=== PATIENT | male | born 1945 | race Caucasian/White ===

== ENCOUNTER 2020-10-20 20:48 | Observation (INO) | payer MEDICARE, BC, OTHER ==
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
[2020-10-20 22:36] LABS: Basophils # (A) 0.1 k/uL (0-0.2); Basophils % (A) 1 %; Eosinophils # (A) 1.1 k/uL (0-0.7); Eosinophils % (A) 11 %; HCT 38.1 % (39.0-53.0); HGB 12.9 gm/dL (13.0-17.5); Lymphocytes # (A) 2.6 k/uL (1.0-4.8); Lymphocytes % (A) 25 %; MCH 29.6 pg (25.0-35.0); MCV 87.1 fL (80.0-100.0); Mean Platelet Volume 7.9; Monocytes # (A) 0.5 k/uL (0-1.0); Monocytes % (A) 4 %; Neutrophils % (A) 57 %; Platelet Count 228 k/uL (150-450); RBC 4.37 m/uL (4.30-5.90); RDW 13.5 % (11.5-15.5); WBC 10.4 k/uL (3.8-10.6)
[2020-10-20 22:48] LABS: African American GFR (CKD) >90 (>60 ml/min/1.73 sqM); Alcohol <10 mg/dL; Anion Gap 10 mmol/L; Blood Urea Nitrogen 18 mg/dL (9-20); Calcium 9.8 mg/dL (8.4-10.2); Carbon Dioxide 27 mmol/L (22-30); Chloride 102 mmol/L (98-107); Glucose 147 mg/dL (74-99); Non-African American GFR(CKD) 83 (>60 ml/min/1.73 sqM); Sodium 139 mmol/L (137-145)
[2020-10-20 22:59] LABS: Appearance,Urine Turbid (Clear); Bacteria,Urine Many /hpf; Bilirubin,Urine Negative (Negative); Blood,Urine Moderate (Negative); Color,Urine Yellow; Glucose,Urine (UA) Negative (Negative); Granular Casts,Urine 165 /lpf (0); Hyaline Casts,Urine 37 /lpf (0-2); Ketones,Urine Negative (Negative); Leukocyte Esterase,Urine Large (Negative); Mucus,Urine Few /hpf; Nitrite,Urine Negative (Negative); Protein,Urine 2+ (Negative); RBC,Urine 133 /hpf (0-5); Specific Gravity,Urine 1.022 (1.001-1.035); Squamous Epithelial Cell,Urine 3 /hpf (0-4); Triple Phosphate Crystal,Urine Occasional /hpf; Urobilinogen,Urine <2.0 mg/dL (<2.0); WBC,Urine >182 /hpf (0-5)
[2020-10-20 23:01] LABS: Amphetamine Screen,Urine Not Detected (NotDetected); Barbiturate Screen,Urine Not Detected (NotDetected); Benzodiazepines Screen,Urine Detected (NotDetected); Cocaine Screen,Urine Not Detected (NotDetected); Methadone Screen, Urine Not Detected (NotDetected); Opiate Screen,Urine Not Detected (NotDetected); Oxycodone Screen, Urine Not Detected (NotDetected); Phencyclidine Screen,Urine Not Detected (NotDetected); Tricyclic Antidepressant,Urine Not Detected (NotDetected); Urn Cannabinoid Scrn Not Detected (NotDetected)
[2020-10-20] MEDS ORDERED: LORazepam 2 MG/ML INJ IV STA (23:49)
[2020-10-21] MEDS ORDERED: LORazepam 2 MG/ML INJ IV PRN (00:10)
[2020-10-21] MEDS ORDERED: NALOXONE 0.4 MG/ML 1 ML VIAL IV PRN (00:10)
[2020-10-21] MEDS ORDERED: LOPERAMIDE 2 MG CAP PO PRN (00:13)
[2020-10-21] MEDS ORDERED: MAG HYDROX/AL HYDROX/SIMETH 30 ML CUP PO PRN (00:13)
[2020-10-21] MEDS ORDERED: traMADol 50 MG TAB PO PRN (00:13)
[2020-10-21] MEDS ORDERED: QUEtiapine 50 MG TAB PO STA (00:53)
[2020-10-21] MEDS ORDERED: traZODone HCL 50 MG TAB PO SCH ×2 (00:55→21:00)
[2020-10-21] MEDS ORDERED: cefTRIAXone IN SWFI 1,000 MG/10 ML SYRINGE IVP STA (02:11)
[2020-10-21] MEDS: risperiDONE ODT 1 MG TAB PO STA ×2 (02:20→02:35)
[2020-10-21] MEDS ORDERED: ZIPRASIDONE 20 MG VIAL IM STA (02:30)
[2020-10-21] MEDS ORDERED: ACETAMINOPHEN TAB 500 MG TAB PO PRN (07:15)
[2020-10-21 07:20] LABS: Glucose,Whole Blood 147 mg/dL (75-99)
[2020-10-21] MEDS: INSULIN ASPART (NovoLOG) 100 UNIT/ML VIAL SQ SCH ×4 (08:38→21:15)
[2020-10-21] MEDS: INSULIN DETEMIR (LEVEMIR) 100 UNIT/ML SYR SQ SCH (08:38)
[2020-10-21] MEDS ORDERED: metFORMIN 500 MG TAB PO SCH (09:00)
[2020-10-21] MEDS ORDERED: PARoxetine 20 MG TAB PO SCH (09:00)
[2020-10-21] MEDS ORDERED: QUEtiapine 25 MG TAB PO PRN (10:19)
[2020-10-21] MEDS ORDERED: HALOPERIDOL LACTATE 5 MG/ML 1 ML VIAL IVP PRN (10:20)
--- NOTE | 2020-10-21 10:58 | P.HPIM ---
History of Present Illness Patient is on 75-year-old male came in because of agitation unsure whether patient had history of dementia. Patient appears that he lives in a long-term care facility. Unable to get any kind of history from the patient has patient received Geodon and the arousable but falls back to sleep pretty quickly. In underwent workup in ER patient doesn't have any fever doesn't have any leukocytosis but the patient has urine that is significantly abnormal. I'm unable to get any kind of history from the patient. Patient the is on few medications that can cause confusion at home including tramadol, trazodone, Xanax all of which are being held at this time. REVIEW OF SYSTEMS: Unable to obtain due to his clinical condition PHYSICAL EXAMINATION: GENERAL: Sleeping arousable, not in any acute distress. Well developed, well nou rished. HEENT: Pupils are round and equally reacting to light. EOMI. No scleral icterus. No conjunctival pallor. Normocephalic, atraumatic. No pharyngeal erythema. No thyromegaly. CARDIOVASCULAR: S1 and S2 present. No murmurs, rubs, or gallops. PULMONARY: Unable to assess clearly as patient doesn't follow commands ABDOMEN: Soft, nontender, nondistended, normoactive bowel sounds. No palpable org anomegaly. MUSCULOSKELETAL: No joint swelling or deformity. EXTREMITIES: No cyanosis, clubbing, or pedal edema. NEUROLOGICAL: Unable to assess except those mentioned above SKIN: No rashes. Assessment and plan -Agitation: Can be delirium and toxic encephalopathy from urinary tract infection which I cannot completely rule out awaiting urine cultures patient will be continued on Rocephin 2 g. Patient will be started on Haldol as needed basis and Seroquel at nighttime for agitation will discontinue all benzodiazepines, trazodone and tramadol. -CVA/TIA in the past -History of dementia -Hyperlipidemia -Type 2 diabetes mellitus -Hypertension -Benign prostatic hypertrophy For above-mentioned chronic medical problems patient will be resumed on appropriate home medications. DVT prophylaxis: Lovenox Past Medical History Past Medical History: CVA/TIA, Dementia, Diabetes Mellitus, Hyperlipidemia, Hypertension, Prostate Disorder Additional Past Medical History / Comment(s): Benign prostatcc hyperplasia with lower urinary tract symptoms. Aphasia (6 word vocabulary), hemiplegia/hemiparesis R dominant side. Anemia. Insomnia History of Any Multi-Drug Resistant Organisms: None Reported Additional Past Surgical History / Comment(s): unknown Past Anesthesia/Blood Transfusion Reactions: No Reported Reaction Smoking Status: Unknown if ever smoked Medications and Allergies Home Medications Medication Instructions Recorded Confirmed Type ALPRAZolam [Xanax] 0.25 mg PO DAILY 10/20/20 10/20/20 History Acetaminophen [Tylenol Extra 500 mg PO Q6H 10/20/20 10/20/20 History Strength] Atorvastatin Calcium [Lipitor] 20 mg PO HS 10/20/20 10/20/20 History Insulin Detemir (Levemir) [Levemir] 48 unit SQ DAILY 10/20/20 10/20/20 History Lisinopril [Zestril] 10 mg PO HS 10/20/20 10/20/20 History Loperamide [Imodium] 2 mg PO DAILY PRN 10/20/20 10/20/20 History Mag Hydrox/Aluminum Hyd/Simeth 15 ml PO Q6H PRN 10/20/20 10/20/20 History [Mylanta Maximum Strength Liq] Melatonin 3 mg PO HS 10/20/20 10/20/20 History PARoxetine HCL [Paxil] 20 mg PO DAILY 10/20/20 10/20/20 History metFORMIN HCL [Glucophage] 1,000 mg PO BID 10/20/20 10/20/20 History traMADol HCl [Ultram] 50 mg PO BID PRN 10/20/20 10/20/20 History traMADol HCl [Ultram] 50 mg PO HS 10/20/20 10/20/20 History traZODone HCL [Desyrel] 50 mg PO HS 10/20/20 10/20/20 History Allergies Allergy/AdvReac Type Severity Reaction Status Date / Time latex Allergy Unknown Verified 10/20/20 21:22 Physical Exam Vitals: Vital Signs Temp Pulse Pulse Resp BP BP Pulse Ox 10/21/20 07:00 102 H 18 177/99 98 10/21/20 02:57 97.7 F 87 14 119/65 97 10/20/20 21:00 99.1 F 79 18 133/72 98 Intake and Output 10/20/20 10/21/20 10/21/20 22:59 06:59 14:59 Output Total 500 Balance -500 Output: Urine 500 Other: Voiding Method Indwelling Catheter Weight 80.331 kg 80.331 kg Results CBC & Chem 7: 10/20/20 22:06 10/20/20 22:06 Labs: Abnormal Lab Results - Last 24 Hours (Table) 10/20/20 10/20/20 10/20/20 Range/Units 22:06 22:06 22:06 Hgb 12.9 L (13.0-17.5) gm/dL Hct 38.1 L (39.0-53.0) % Eosinophils # 1.1 H (0-0.7) k/uL Glucose 147 H (74-99) mg/dL POC Glucose (mg/dL) (75-99) mg/dL Urine Protein 2+ H (Negative) Urine Blood Moderate H (Negative) Ur Leukocyte Esterase Large H (Negative) Urine RBC 133 H (0-5) /hpf Urine WBC >182 H (0-5) /hpf Triple Phos Crystals Occasional H (None) /hpf Urine Bacteria Many H (None) /hpf Hyaline Casts 37 H (0-2) /lpf Urine Mucus Few H (None) /hpf U Benzodiazepines Scrn (NotDetected) 10/20/20 10/21/20 Range/Units 22:06 07:18 Hgb (13.0-17.5) gm/dL Hct (39.0-53.0) % Eosinophils # (0-0.7) k/uL Glucose (74-99) mg/dL POC Glucose (mg/dL) 147 H (75-99) mg/dL Urine Protein (Negative) Urine Blood (Negative) Ur Leukocyte Esterase (Negative) Urine RBC (0-5) /hpf Urine WBC (0-5) /hpf Triple Phos Crystals (None) /hpf Urine Bacteria (None) /hpf Hyaline Casts (0-2) /lpf Urine Mucus (None) /hpf U Benzodiazepines Scrn Detected H (NotDetected) Microbiology - Last 24 Hours (Table) 10/20/20 22:06 Urine Culture - Preliminary Urine,Voided Thrombosis Risk Factor Assmnt - Choose All That Apply Any of the Below Risk Factors Present?: No Other Risk Factors: Yes Each Risk Factor Represents 3 Points: Age 75 years or older Other congenital or acquired thrombophilia - If yes, enter type in comment: No Thrombosis Risk Factor Assessment Total Risk Factor Score: 3 Thrombosis Risk Factor Assessment Level: Moderate Risk
[2020-10-21] MEDS ORDERED: HALOPERIDOL LACTATE 5 MG/ML 1 ML VIAL IM PRN ×2 (11:34→11:36)
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
[2020-10-21 12:22] LABS: Glucose,Whole Blood 127 mg/dL (75-99)
[2020-10-21] MEDS: DIVALPROEX 250 MG TABLET.DR PO SCH ×2 (12:23→21:09)
[2020-10-21 13:19] VITALS: BMI 24.7
[2020-10-21 17:10] LABS: Glucose,Whole Blood 150 mg/dL (75-99)
[2020-10-21 20:13] LABS: Glucose,Whole Blood 172 mg/dL (75-99)
[2020-10-21] MEDS ORDERED: lisinopriL 10 MG TAB PO SCH (21:00)
[2020-10-21] MEDS ORDERED: QUEtiapine 25 MG TAB PO SCH (21:00)
[2020-10-21] MEDS ORDERED: MELATONIN 3 MG TABLET PO SCH (21:00)
[2020-10-21] MEDS ORDERED: ATORVASTATIN 20 MG TAB PO SCH (21:00)
[2020-10-22 07:23] LABS: Glucose,Whole Blood 146 mg/dL (75-99)
[2020-10-22] MEDS: DIVALPROEX 250 MG TABLET.DR PO SCH (07:45)
[2020-10-22] MEDS: INSULIN ASPART (NovoLOG) 100 UNIT/ML VIAL SQ SCH ×2 (07:45→11:55)
[2020-10-22] MEDS: INSULIN DETEMIR (LEVEMIR) 100 UNIT/ML SYR SQ SCH (07:46)
[2020-10-22 08:04] VITALS: RESP 16
[2020-10-22] MEDS ORDERED: ENOXAPARIN 40 MG/0.4 ML SYRINGE SQ SCH (09:00)
[2020-10-22 11:33] LABS: Glucose,Whole Blood 178 mg/dL (75-99)
--- NOTE | 2020-10-22 13:46 | P.PN ---
Progress Note - Text Progress Note Date: 10/22/20 Interval History: Patient was seen today for psychiatric follow-up regarding his delirium. Zofia ent's nurse claims that patient has been doing very well and has been calm and cooperative today. Patient did not receive any prn medications pvernight and apprently slept fairly. Patient was sleeping when senior medical writer entered the room and was awoken by senior medical writer. He was fairly calm during the interview and did not have any irritability. He did not offer any complaints. She did not know his location or today's date however does not his first name. He was able to follow commands which were simple given by senior medical writer. He denied any depression and states that he is doing "fine". At this time patient denies any suicidal or homical ideations, intent or plan. Patient denies any auditory, visual hallucinations and denies any paranoia or delusions. Patient denies any side effects from the medications and has been compliant with meds. Mental Status Exam: General Appearance: Patient appears to be laying in bed, alert and directable. Patient appears to have fair hygiene and grooming wearing hospital gown Behavior: Patient is calmly lying in bed without any agitated behavior. Speech: [place], fluent. Mood/Affect: She claims that his mood is fine and denies any depression, affect is congruent. Suicidality/Homicidality: Denies Perceptions: Denies any auditory or visual hallucinations. Though content/process: [place], poverty of content. Logical. Not endorsing any delusions. Memory and concentration: He is alert and oriented to name only, however does not know today's date or location. Improved attention span. Following some commands. Judgment and insight: chronically poor, improved Assessment Delirium likely secondary to urinary tract infection, resolved History of dementia with behavioral disturbance Plan: -At this time patient DOES NOT meet criteria for inpatient psychiatric admission. -Delirium precautions recommended with patient including - avoiding use of narcotics and CENTER DIRECTOR LEAD TEACHER sedatives, limit anticholinergic medications when possible, frequent re-orientation, minimize use of restraints, open window shades during the day and close them at night -Would recommend the following medication changes/additions: Please avoid any benzodiazepines or anticholinergic medications as this will further increase patient's confusion/delirium. Seroquel 25 mg daily at bedtime for insomnia/mood stabilization. Depakote 250 mg twice a day for aggression/agitation. Haldol when necessary for agitation. -continue with treatment of underlying UTI/infection. -Communicated plan to patient's nurse. PAtient will be going back to [facility] upon discharge -At this time psychiatry will sign off. -Please contact with any questions.
--- NOTE | 2020-10-22 14:40 | P.DS ---
Providers Date of admission: 10/21/20 00:13 Expected date of discharge: 10/22/20 Attending physician: Annaebl Johnson Consults: 10/21/20 00:11 Consult Physician Routine Consulting Provider: Ismael Alvarez Consult Reason/Comments: Intermittent combativeness Do you want consulting provider notified?: Yes Primary care physician: Antione Johnson Hospital Course: Final diagnosis -Agitation: Can be delirium and toxic encephalopathy from acute urinary tract infection, present on admission -CVA/TIA in the past -History of dementia -Hyperlipidemia -Type 2 diabetes mellitus -Hypertension -Benign prostatic hypertrophy -DVT prophylaxis -Full code Discharge disposition Patient is being discharged in a stable condition with guarded prognosis to [facility] as he is a resident there. Patient will follow-up with Dr. Johnson in the outpatient setting upon discharge. Patient is to continue with Ceftin 500 mg twice daily for the next 5 days and then may discontinue. Total time taken is greater than 35 minutes. Hospital Course Patient is on 75-year-old male came in because of agitation unsure whether patient had history of dementia. Patient appears that he lives in a long-term care facility. Unable to get any kind of history from the patient has patient received Geodon and the arousable but falls back to sleep pretty quickly. Patient underwent workup in ER patient doesn't have any fever doesn't have any leukocytosis but the patient has urine that is significantly abnormal. I'm unable to get any kind of history from the patient. Patient the is on few med ications that can cause confusion at home including tramadol, trazodone, Xanax all of which are being discontinued at this time. 10/22/2020 Patient is seen in follow-up and much more calm and cooperative. Patient continues to be somewhat confused although more awake today. Patient being treated for acute urinary tract infection and will continue with oral Ceftin 500 mg twice daily for the next 5 days and then may discontinue. Patient was also seen and evaluated by psychiatry and patient will continue on Seroquel 25 mg at night along with Depakote 250 mg twice daily and recommend also to avoid INTERNAL MEDICINE DOCTOR and narcotic agents as patient becomes more agitated and confused. Currently no reports of chest pain, shortness of breath, or palpitations. Patient is afebrile. No reports of nausea or vomiting and patient is tolerating diet. Patient will be going to [facility] today. On exam vital signs are stable. Cardio S1, S2 are muffled. Respiratory system shows diminished breath sounds at the bases with no wheezing or rhonchi noted. Abdomen is soft and nontender. Nervous system shows diffuse weakness. Please refer to medication reconciliation sheet for a list of medications. Patient Condition at Discharge: Stable Plan - Discharge Summary Discharge Rx Participant: No New Discharge Prescriptions: New Divalproex [Depakote] 250 mg PO BID tablet. QUEtiapine [SEROquel] 25 mg PO HS tab Cefuroxime Axetil [Ceftin] 500 mg PO BID 5 Days #10 tab Continue Loperamide [Imodium] 2 mg PO DAILY PRN PRN Reason: Diarrhea Atorvastatin Calcium [Lipitor] 20 mg PO HS Acetaminophen [Tylenol Extra Strength] 500 mg PO Q6H Mag Hydrox/Aluminum Hyd/Simeth [Mylanta Maximum Strength Liq] 15 ml PO Q6H PRN PRN Reason: Gi Upset metFORMIN HCL [Glucophage] 1,000 mg PO BID Lisinopril [Zestril] 10 mg PO HS Insulin Detemir (Levemir) [Levemir] 48 unit SQ DAILY Discontinued traMADol HCl [Ultram] 50 mg PO HS traZODone HCL [Desyrel] 50 mg PO HS PARoxetine HCL [Paxil] 20 mg PO DAILY Melatonin 3 mg PO HS traMADol HCl [Ultram] 50 mg PO BID PRN PRN Reason: Pain ALPRAZolam [Xanax] 0.25 mg PO DAILY Discharge Medication List Acetaminophen [Tylenol Extra Strength] 500 mg PO Q6H 10/20/20 [History] Atorvastatin Calcium [Lipitor] 20 mg PO HS 10/20/20 [History] Insulin Detemir (Levemir) [Levemir] 48 unit SQ DAILY 10/20/20 [History] Lisinopril [Zestril] 10 mg PO HS 10/20/20 [History] Loperamide [Imodium] 2 mg PO DAILY PRN 10/20/20 [History] Mag Hydrox/Aluminum Hyd/Simeth [Mylanta Maximum Strength Liq] 15 ml PO Q6H PRN 10/20/20 [History] metFORMIN HCL [Glucophage] 1,000 mg PO BID 10/20/20 [History] Cefuroxime Axetil [Ceftin] 500 mg PO BID 5 Days #10 tab 10/22/20 [Rx] Divalproex [Depakote] 250 mg PO BID tablet. 10/22/20 [Rx] QUEtiapine [SEROquel] 25 mg PO HS tab 10/22/20 [Rx] Follow up Appointment(s)/Referral(s): Antione Johnson MD [Primary Care Provider] - 1-2 days Activity/Diet/Wound Care/Special Instructions: Patient is going to [facility] Activity as tolerated Continue heart healthy diet Continue with Glucerna 3 times a day with meals Avoid INTERNAL MEDICINE DOCTOR agents and narcotics Follow-up primary care provider upon discharge Continue with antibiotics twice daily for the next 5 days and then may discontinue Discharge Disposition: TRANSFER TO SNF/ECF
[2020-10-22 15:11] VITALS: BP 120/66; PULSE 72; TEMP 98.2
== END 2020-10-22 16:50 ==
LOC: EC 20:48 → 6NMEDSUR 10-21 00:13 → 4SSUR 10-21 01:20
PROVIDERS: ADMIT Hospitalist; ATTEND Hospitalist
DX: R45.1 Restlessness and agitation (principal); N39.0 Urinary tract infection, site not specified; F03.91 Unspecified dementia, unspecified severity, with behavioral disturbance; I69.320 Aphasia following cerebral infarction; E11.9 Type 2 diabetes mellitus without complications; N40.1 Benign prostatic hyperplasia with lower urinary tract symptoms; E78.5 Hyperlipidemia, unspecified; I10 Essential (primary) hypertension; G81.91 Hemiplegia, unspecified affecting right dominant side; D64.9 Anemia, unspecified; G47.00 Insomnia, unspecified; F41.9 Anxiety disorder, unspecified; Z79.4 Long term (current) use of insulin; Z79.899 Other long term (current) drug therapy; Z91.040 Latex allergy status
CPT/HCPCS: 96376; 96365; 96372 ×2; 96375; 99285; 36415; 80048; 84443; 85025; 81001; 80306; 87086; 87077; 87186; G0378 ×3; G0480; J2060 ×2; J0696 ×2; J1650; J3486; 80320

== ENCOUNTER 2020-11-05 09:48 | Inpatient (IN) | payer MEDICARE, BC, OTHER ==
[2020-11-05] MEDS ORDERED: BACITRACIN OINT 1 EACH PACKET TOPICAL ONE (09:57)
--- NOTE | 2020-11-05 10:02 | ED ---
General Adult HPI - General Chief complaint: Psychiatric Symptoms Stated complaint: Mental Health Time Seen by Provider: 11/05/20 09:50 Source: EMS Mode of arrival: EMS Limitations: language barrier, physical limitation - History of Present Illness Initial comments: Patient is a 75-year-old male with past medical history of CVA, dementia, BPH with suprapubic catheter who presents to the emergency department from [facility]. Staff reports that the patient has had increasing behavioral issues. He was seen in the emergency department 15 days ago for similar complaint. They state that he is normally a and O 1 however the aggressive nature usually accompanies a UTI. He has been attempting to bite staff and hit staff. He was also refusing to take his medications. Because of his behavior they transferred him to the emergency room for evaluation. Patient cannot provide any history. He does have a skin tear noted to the right elbow which appears in healing stages. No known trauma that was reported by staff. The deny that he has had any abnormal vital signs. Review the patient's chart states that he has his catheter exchanged every month. Last change was on the . He does have a 22-[place]. The remainder of the HPI is limited because the patient's current mentation - Related Data Home Medications Medication Instructions Recorded Confirmed Acetaminophen [Tylenol Extra 500 mg PO Q6H 10/20/20 11/05/20 Strength] Atorvastatin Calcium [Lipitor] 20 mg PO HS@199910/20/20 11/05/20 Insulin Detemir (Levemir) [Levemir] 48 unit SQ DAILY@0710/20/20 11/05/20 Lisinopril [Zestril] 10 mg PO HS@199910/20/20 11/05/20 Loperamide [Imodium] 2 mg PO DAILY PRN 10/20/20 11/05/20 Mag Hydrox/Aluminum Hyd/Simeth 30 ml PO Q6H PRN 10/20/20 11/05/20 [Mylanta Maximum Strength Liq] metFORMIN HCL [Glucophage] 1,000 mg PO BID 10/20/20 11/05/20 ALPRAZolam [Xanax] 0.25 mg PO Q8H PRN 11/05/20 11/05/20 Health Shake 1 can PO BID@0700,1600 11/05/20 11/05/20 QUEtiapine [SEROquel] 25 mg PO HS@2000 11/05/20 11/05/20 Previous Rx's Medication Instructions Recorded Divalproex [Depakote] 250 mg PO BID tablet. 10/22/20 Allergies Allergy/AdvReac Type Severity Reaction Status Date / Time latex Allergy Unknown Verified 11/05/20 12:23 Review of Systems ROS Statement: Those systems with pertinent positive or pertinent negative responses have been documented in the HPI. ROS Other: All systems not noted in ROS Statement are negative. Past Medical History Past Medical History: CVA/TIA, Dementia, Diabetes Mellitus, Hyperlipidemia, Hypertension, Prostate Disorder Additional Past Medical History / Comment(s): Benign prostatcc hyperplasia with lower urinary tract symptoms. Aphasia (6 word vocabulary), hemiplegia/hemiparesis R dominant side. Anemia. Insomnia History of Any Multi-Drug Resistant Organisms: None Reported Additional Past Surgical History / Comment(s): unknown Past Anesthesia/Blood Transfusion Reactions: No Reported Reaction Past Psychological History: Anxiety Smoking Status: Never smoker Past Alcohol Use History: None Reported Past Drug Use History: None Reported General Exam Limitations: language barrier, physical limitation General appearance: alert, in no apparent distress Head exam: Present: atraumatic, normocephalic, normal inspection Eye exam: Present: normal appearance, PERRL, EOMI. Absent: scleral icterus, conjunctival injection, periorbital swelling ENT exam: Present: normal exam, mucous membranes moist Neck exam: Present: normal inspection. Absent: tenderness, meningismus, lymphadenopathy Respiratory exam: Present: normal lung sounds bilaterally. Absent: respiratory distress, wheezes, rales, rhonchi, stridor Cardiovascular Exam: Present: regular rate, normal rhythm, normal heart sounds. Absent: systolic murmur, diastolic murmur, rubs, gallop, clicks GI/Abdominal exam: Present: soft, normal bowel sounds, other (suprapubic catheter). Absent: distended, tenderness, guarding, rebound, rigid Extremities exam: Present: normal capillary refill, other (contracture right upper extremity). Absent: tenderness, pedal edema, joint swelling, calf tenderness Back exam: Present: normal inspection Neurological exam: Present: alert, CN II-XII intact Psychiatric exam: Present: normal affect, normal mood Skin exam: Present: warm, dry, intact, normal color. Absent: rash Course Vital Signs 11/05/20 11/05/20 09:51 12:34 Temperature 98.2 F 98.7 F Pulse Rate 88 80 Respiratory 16 Rate Blood Pressure 188/72 175/75 O2 Sat by Pulse 99 99 Oximetry Medical Decision Making - Medical Decision Making On arrival patient is placed into room 14. A thorough history and physical exam was performed. Laboratory studies are conducted. Patient suprapubic catheter is changed out. Urinalysis is positive for 28 red blood cells, 8 white blood cells and rare bacteria. I reviewed the patient's chart and he has been hospitalized for similar complaint. Previous urine specimen was sensitive to Rocephin and therefore the patient was given 1 g. I recommended admission for delirium secondary to UTI with psych consult. Spoke with Dr. Wise who agreed to admit the patient. Patient awaiting bed in stable condition - Lab Data Result diagrams: 11/05/20 10:09 11/05/20 10:09 Lab Results 11/05/20 11/05/20 11/05/20 Range/Units 10:09 10:09 10:09 WBC 9.3 (3.8-10.6) k/uL RBC 4.46 (4.30-5.90) m/uL Hgb 13.3 (13.0-17.5) gm/dL Hct 39.9 (39.0-53.0) % MCV 89.5 (80.0-100.0) fL MCH 29.8 (25.0-35.0) pg MCHC 33.4 (31.0-37.0) g/dL RDW 13.4 (11.5-15.5) % Plt Count 211 (150-450) k/uL MPV 8.2 Neutrophils % 64 % Lymphocytes % 22 % Monocytes % 6 % Eosinophils % 5 % Basophils % 1 % Neutrophils # 6.0 (1.3-7.7) k/uL Lymphocytes # 2.0 (1.0-4.8) k/uL Monocytes # 0.6 (0-1.0) k/uL Eosinophils # 0.5 (0-0.7) k/uL Basophils # 0.1 (0-0.2) k/uL PT 10.5 (9.0-12.0) sec INR 1.0 (<1.2) APTT 22.9 (22.0-30.0) sec Sodium (137-145) mmol/L Potassium (3.5-5.1) mmol/L Chloride (98-107) mmol/L Carbon Dioxide (22-30) mmol/L Anion Gap mmol/L BUN (9-20) mg/dL Creatinine (0.66-1.25) mg/dL Est GFR (CKD-EPI)AfAm (>60 ml/min/1.73 sqM) Est GFR (CKD-EPI)NonAf (>60 ml/min/1.73 sqM) Glucose (74-99) mg/dL POC Glucose (mg/dL) (75-99) mg/dL POC Glu Plastic Surgery Assistant ID Calcium (8.4-10.2) mg/dL Total Bilirubin (0.2-1.3) mg/dL AST (17-59) U/L ALT (4-49) U/L Alkaline Phosphatase (38-126) U/L Creatine Kinase (55-170) U/L Troponin I (0.000-0.034) ng/mL Total Protein (6.3-8.2) g/dL Albumin (3.5-5.0) g/dL Urine Color Yellow Urine Appearance Clear (Clear) Urine pH 7.0 (5.0-8.0) Ur Specific [place] 1.016 (1.001-1.035) Urine Protein 2+ H (Negative) Urine Glucose (UA) Trace H (Negative) Urine Ketones Trace H (Negative) Urine Blood Small H (Negative) Urine Nitrite Negative (Negative) Urine Bilirubin Negative (Negative) Urine Urobilinogen <2.0 (<2.0) mg/dL Ur Leukocyte Esterase Moderate H (Negative) Urine RBC 28 H (0-5) /hpf Urine WBC 8 H (0-5) /hpf Urine Bacteria Rare H (None) /hpf Hyaline Casts 1 (0-2) /lpf Urine Mucus Few H (None) /hpf Valproic Acid ug/mL 11/05/20 11/05/20 11/05/20 Range/Units 10:09 10:09 10:09 WBC (3.8-10.6) k/uL RBC (4.30-5.90) m/uL Hgb (13.0-17.5) gm/dL Hct (39.0-53.0) % MCV (80.0-100.0) fL MCH (25.0-35.0) pg MCHC (31.0-37.0) g/dL RDW (11.5-15.5) % Plt Count (150-450) k/uL MPV Neutrophils % % Lymphocytes % % Monocytes % % Eosinophils % % Basophils % % Neutrophils # (1.3-7.7) k/uL Lymphocytes # (1.0-4.8) k/uL Monocytes # (0-1.0) k/uL Eosinophils # (0-0.7) k/uL Basophils # (0-0.2) k/uL PT (9.0-12.0) sec INR (<1.2) APTT (22.0-30.0) sec Sodium 139 (137-145) mmol/L Potassium 4.5 (3.5-5.1) mmol/L Chloride 102 (98-107) mmol/L Carbon Dioxide 26 (22-30) mmol/L Anion Gap 11 mmol/L BUN 12 (9-20) mg/dL Creatinine 0.74 (0.66-1.25) mg/dL Est GFR (CKD-EPI)AfAm >90 (>60 ml/min/1.73 sqM) Est GFR (CKD-EPI)NonAf 90 (>60 ml/min/1.73 sqM) Glucose 211 H (74-99) mg/dL POC Glucose (mg/dL) (75-99) mg/dL POC Glu Plastic Surgery Assistant ID Calcium 9.9 (8.4-10.2) mg/dL Total Bilirubin 0.3 (0.2-1.3) mg/dL AST 21 (17-59) U/L ALT 16 (4-49) U/L Alkaline Phosphatase 88 (38-126) U/L Creatine Kinase 58 (55-170) U/L Troponin I <0.012 (0.000-0.034) ng/mL Total Protein 7.6 (6.3-8.2) g/dL Albumin 4.3 (3.5-5.0) g/dL Urine Color Urine Appearance (Clear) Urine pH (5.0-8.0) Ur Specific [place] (1.001-1.035) Urine Protein (Negative) Urine Glucose (UA) (Negative) Urine Ketones (Negative) Urine Blood (Negative) Urine Nitrite (Negative) Urine Bilirubin (Negative) Urine Urobilinogen (<2.0) mg/dL Ur Leukocyte Esterase (Negative) Urine RBC (0-5) /hpf Urine WBC (0-5) /hpf Urine Bacteria (None) /hpf Hyaline Casts (0-2) /lpf Urine Mucus (None) /hpf Valproic Acid 33.1 ug/mL 11/05/20 11/05/20 11/05/20 Range/Units 10:18 16:51 20:30 WBC (3.8-10.6) k/uL RBC (4.30-5.90) m/uL Hgb (13.0-17.5) gm/dL Hct (39.0-53.0) % MCV (80.0-100.0) fL MCH (25.0-35.0) pg MCHC (31.0-37.0) g/dL RDW (11.5-15.5) % Plt Count (150-450) k/uL MPV Neutrophils % % Lymphocytes % % Monocytes % % Eosinophils % % Basophils % % Neutrophils # (1.3-7.7) k/uL Lymphocytes # (1.0-4.8) k/uL Monocytes # (0-1.0) k/uL Eosinophils # (0-0.7) k/uL Basophils # (0-0.2) k/uL PT (9.0-12.0) sec INR (<1.2) APTT (22.0-30.0) sec Sodium (137-145) mmol/L Potassium (3.5-5.1) mmol/L Chloride (98-107) mmol/L Carbon Dioxide (22-30) mmol/L Anion Gap mmol/L BUN (9-20) mg/dL Creatinine (0.66-1.25) mg/dL Est GFR (CKD-EPI)AfAm (>60 ml/min/1.73 sqM) Est GFR (CKD-EPI)NonAf (>60 ml/min/1.73 sqM) Glucose (74-99) mg/dL POC Glucose (mg/dL) 196 H 215 H 293 H (75-99) mg/dL POC Glu Plastic Surgery Assistant Wil Fonseca, Yenni Nava Calcium (8.4-10.2) mg/dL Total Bilirubin (0.2-1.3) mg/dL AST (17-59) U/L ALT (4-49) U/L Alkaline Phosphatase (38-126) U/L Creatine Kinase (55-170) U/L Troponin I (0.000-0.034) ng/mL Total Protein (6.3-8.2) g/dL Albumin (3.5-5.0) g/dL Urine Color Urine Appearance (Clear) Urine pH (5.0-8.0) Ur Specific [place] (1.001-1.035) Urine Protein (Negative) Urine Glucose (UA) (Negative) Urine Ketones (Negative) Urine Blood (Negative) Urine Nitrite (Negative) Urine Bilirubin (Negative) Urine Urobilinogen (<2.0) mg/dL Ur Leukocyte Esterase (Negative) Urine RBC (0-5) /hpf Urine WBC (0-5) /hpf Urine Bacteria (None) /hpf Hyaline Casts (0-2) /lpf Urine Mucus (None) /hpf Valproic Acid ug/mL 11/06/20 11/06/20 Range/Units 07:25 11:29 WBC (3.8-10.6) k/uL RBC (4.30-5.90) m/uL Hgb (13.0-17.5) gm/dL Hct (39.0-53.0) % MCV (80.0-100.0) fL MCH (25.0-35.0) pg MCHC (31.0-37.0) g/dL RDW (11.5-15.5) % Plt Count (150-450) k/uL MPV Neutrophils % % Lymphocytes % % Monocytes % % Eosinophils % % Basophils % % Neutrophils # (1.3-7.7) k/uL Lymphocytes # (1.0-4.8) k/uL Monocytes # (0-1.0) k/uL Eosinophils # (0-0.7) k/uL Basophils # (0-0.2) k/uL PT (9.0-12.0) sec INR (<1.2) APTT (22.0-30.0) sec Sodium (137-145) mmol/L Potassium (3.5-5.1) mmol/L Chloride (98-107) mmol/L Carbon Dioxide (22-30) mmol/L Anion Gap mmol/L BUN (9-20) mg/dL Creatinine (0.66-1.25) mg/dL Est GFR (CKD-EPI)AfAm (>60 ml/min/1.73 sqM) Est GFR (CKD-EPI)NonAf (>60 ml/min/1.73 sqM) Glucose (74-99) mg/dL POC Glucose (mg/dL) 180 H 175 H (75-99) mg/dL POC Glu Plastic Surgery Assistant ID Boldcarlos, Katarina Boldcarlos, Katarina Calcium (8.4-10.2) mg/dL Total Bilirubin (0.2-1.3) mg/dL AST (17-59) U/L ALT (4-49) U/L Alkaline Phosphatase (38-126) U/L Creatine Kinase (55-170) U/L Troponin I (0.000-0.034) ng/mL Total Protein (6.3-8.2) g/dL Albumin (3.5-5.0) g/dL Urine Color Urine Appearance (Clear) Urine pH (5.0-8.0) Ur Specific [place] (1.001-1.035) Urine Protein (Negative) Urine Glucose (UA) (Negative) Urine Ketones (Negative) Urine Blood (Negative) Urine Nitrite (Negative) Urine Bilirubin (Negative) Urine Urobilinogen (<2.0) mg/dL Ur Leukocyte Esterase (Negative) Urine RBC (0-5) /hpf Urine WBC (0-5) /hpf Urine Bacteria (None) /hpf Hyaline Casts (0-2) /lpf Urine Mucus (None) /hpf Valproic Acid ug/mL Disposition Clinical Impression: Encephalopathy acute, Abnormal urinalysis, Aggressive behavior Disposition: ADMITTED IP TO THIS [facility] Condition: Stable Is patient prescribed a controlled substance at d/c from ED?: No Decision to Admit Reason: Admit from EC Decision Date: 11/05/20 Decision Time: 11:57
[2020-11-05 10:20] LABS: Glucose,Whole Blood 196 mg/dL (75-99)
[2020-11-05 10:39] LABS: Basophils # (A) 0.1 k/uL (0-0.2); Basophils % (A) 1 %; Eosinophils # (A) 0.5 k/uL (0-0.7); Eosinophils % (A) 5 %; HCT 39.9 % (39.0-53.0); HGB 13.3 gm/dL (13.0-17.5); Lymphocytes % (A) 22 %; MCH 29.8 pg (25.0-35.0); MCHC 33.4 g/dL (31.0-37.0); MCV 89.5 fL (80.0-100.0); Mean Platelet Volume 8.2; Monocytes # (A) 0.6 k/uL (0-1.0); Monocytes % (A) 6 %; Neutrophils % (A) 64 %; Platelet Count 211 k/uL (150-450); RBC 4.46 m/uL (4.30-5.90); RDW 13.4 % (11.5-15.5); WBC 9.3 k/uL (3.8-10.6)
[2020-11-05 10:51] LABS: Partial Thromboplastin Time 22.9 sec (22.0-30.0); Prothrombin Time 10.5 sec (9.0-12.0)
[2020-11-05 11:00] LABS: ALT 16 U/L (4-49); AST 21 U/L (17-59); African American GFR (CKD) >90 (>60 ml/min/1.73 sqM); Albumin 4.3 g/dL (3.5-5.0); Alkaline Phosphatase 88 U/L (38-126); Anion Gap 11 mmol/L; Blood Urea Nitrogen 12 mg/dL (9-20); Calcium 9.9 mg/dL (8.4-10.2); Carbon Dioxide 26 mmol/L (22-30); Chloride 102 mmol/L (98-107); Creatine Kinase 58 U/L (55-170); Glucose 211 mg/dL (74-99); Non-African American GFR(CKD) 90 (>60 ml/min/1.73 sqM); Potassium 4.5 mmol/L (3.5-5.1); Sodium 139 mmol/L (137-145); Total Bilirubin 0.3 mg/dL (0.2-1.3); Total Protein 7.6 g/dL (6.3-8.2)
[2020-11-05] MEDS ORDERED: diphenhydrAMINE 50 MG/ML 1 ML VIAL IVP STA (11:15)
[2020-11-05 11:22] LABS: Appearance,Urine Clear (Clear); Bacteria,Urine Rare /hpf; Bilirubin,Urine Negative (Negative); Blood,Urine Small (Negative); Color,Urine Yellow; Glucose,Urine (UA) Trace (Negative); Hyaline Casts,Urine 1 /lpf (0-2); Ketones,Urine Trace (Negative); Leukocyte Esterase,Urine Moderate (Negative); Mucus,Urine Few /hpf; Nitrite,Urine Negative (Negative); Protein,Urine 2+ (Negative); RBC,Urine 28 /hpf (0-5); Specific Gravity,Urine 1.016 (1.001-1.035); Urobilinogen,Urine <2.0 mg/dL (<2.0); WBC,Urine 8 /hpf (0-5)
[2020-11-05] MEDS ORDERED: cefTRIAXone IN SWFI 1,000 MG/10 ML SYRINGE IVP STA (11:37)
[2020-11-05] MEDS ORDERED: NALOXONE 0.4 MG/ML 1 ML VIAL IV PRN (11:57)
[2020-11-05 16:53] LABS: Glucose,Whole Blood 215 mg/dL (75-99)
[2020-11-05] MEDS ORDERED: ALPRAZolam 0.25 MG TAB PO PRN (20:00)
[2020-11-05] MEDS ORDERED: QUEtiapine 25 MG TAB PO SCH (20:00)
[2020-11-05 20:33] LABS: Glucose,Whole Blood 293 mg/dL (75-99)
[2020-11-05] MEDS: ACETAMINOPHEN TAB 500 MG TAB PO SCH (20:47)
[2020-11-05] MEDS: lisinopriL 10 MG TAB PO SCH (20:48)
[2020-11-05] MEDS: ATORVASTATIN 20 MG TAB PO SCH (20:48)
[2020-11-05] MEDS: INSULIN ASPART (NovoLOG) 100 UNIT/ML VIAL SQ SCH (20:48)
[2020-11-05] MEDS: DIVALPROEX 250 MG TABLET.DR PO SCH (20:49)
[2020-11-05] MEDS: metFORMIN 500 MG TAB PO SCH (20:56)
--- NOTE | 2020-11-05 21:42 | P.CONS ---
History of Present Illness - Reason for Consult Consult date: 11/05/20 Urinary tract infection Requesting physician: Bj E Sheet - Chief Complaint aggressive behavior x 1 day - History of Present Illness Patient is a 75-year male with a past medical history significant for dementia CVA benign prostate hypertrophy with suprapubic catheter history of recurrent infection shelter resident patient has been brought to the ER thi s morning for evaluation of aggressive behavior that usually accompanies an episode of ureteric infection patient was attempting to bite staff and hit the staff and also refused to take his medication for this reason and the patient was brought into the hospital recent admission to this facility and he was treated for UTI which was last changed on the however his Alba catheter was changed on by the ER physician on presentation to the hospital the patient was afebrile patient did have a normal white count kidney function was normal he did have positive UA with moderate leukocyte esterase 8 WBCs with rare bacteria patient was given a dose of Rocephin has been admitted to the hospital inf ectious disease was consulted for further management of antibiotic therapy, most information has been obtained from review the chart talking with nursing staff as the patient was unable to provide a reliable history Review of Systems Positive points has been mentioned in HPI complete review could not be obtained because of his underlying mental status Past Medical History Past Medical History: CVA/TIA, Dementia, Diabetes Mellitus, Hyperlipidemia, Hypertension, Prostate Disorder Additional Past Medical History / Comment(s): Benign prostatcc hyperplasia with lower urinary tract symptoms. Aphasia (6 word vocabulary), hemiplegia/hemiparesis R dominant side. Anemia. Insomnia History of Any Multi-Drug Resistant Organisms: None Reported Additional Past Surgical History / Comment(s): unknown Past Anesthesia/Blood Transfusion Reactions: No Reported Reaction Past Psychological History: Anxiety Smoking Status: Never smoker Past Alcohol Use History: None Reported Past Drug Use History: None Reported Medications and Allergies Home Medications Medication Instructions Recorded Confirmed Type Acetaminophen [Tylenol Extra 500 mg PO Q6H 10/20/20 11/05/20 History Strength] Atorvastatin Calcium [Lipitor] 20 mg PO HS@199910/20/20 11/05/20 History Insulin Detemir (Levemir) [Levemir] 48 unit SQ DAILY@0700 10/20/20 11/05/20 History Lisinopril [Zestril] 10 mg PO HS@199910/20/20 11/05/20 History Loperamide [Imodium] 2 mg PO DAILY PRN 10/20/20 11/05/20 History Mag Hydrox/Aluminum Hyd/Simeth 30 ml PO Q6H PRN 10/20/20 11/05/20 History [Mylanta Maximum Strength Liq] metFORMIN HCL [Glucophage] 1,000 mg PO BID 10/20/20 11/05/20 History Divalproex [Depakote] 250 mg PO BID tablet. 10/22/20 11/05/20 Rx ALPRAZolam [Xanax] 0.25 mg PO Q8H PRN 11/05/20 11/05/20 History Health Shake 1 can PO BID@0700,1600 11/05/20 11/05/20 History QUEtiapine [SEROquel] 25 mg PO HS@2000 11/05/20 11/05/20 History Allergies Allergy/AdvReac Type Severity Reaction Status Date / Time latex Allergy Unknown Verified 11/05/20 12:23 Physical Exam Vitals: Vital Signs Temp Pulse Pulse Resp BP BP Pulse Ox 11/05/20 13:27 98.5 F 81 16 157/74 100 11/05/20 12:34 98.7 F 80 16 175/75 99 11/05/20 09:51 98.2 F 88 188/72 99 Intake and Output 11/04/20 11/05/20 11/05/20 22:59 06:59 14:59 Other: Weight 72.575 kg GENERAL DESCRIPTION: Elderly male lying in bed, no distress. No tachypnea or accessory muscle of respiration use. HEENT: Shows Pallor , no scleral icterus. Oral mucous membrane is dry. No pharyngeal erythema or thrush NECK: Trachea central, no thyromegaly. LUNGS: Unlabored breathing. Clear to auscultation anteriorly. No wheeze or crackle. HEART: S1, S2, regular rate and rhythm. No loud murmur ABDOMEN: Soft, no tenderness , guarding or rigidity, no organomegaly EXTREMITIES: No edema of feet. SKIN: No rash, no masses palpable. NEUROLOGICAL: The patient is sleepy lethargic and orientation could not be determined. Results CBC & Chem 7: 11/05/20 10:09 11/05/20 10:09 Labs: Abnormal Lab Results - Last 24 Hours (Table) 0711/05/20 11/05/20 Range/Units 10:09 10:09 10:18 Glucose 211 H (74-99) mg/dL POC Glucose (mg/dL) 196 H (75-99) mg/dL Urine Protein 2+ H (Negative) Urine Glucose (UA) Trace H (Negative) Urine Ketones Trace H (Negative) Urine Blood Small H (Negative) Ur Leukocyte Esterase Moderate H (Negative) Urine RBC 28 H (0-5) /hpf Urine WBC 8 H (0-5) /hpf Urine Bacteria Rare H (None) /hpf Urine Mucus Few H (None) /hpf Assessment and Plan Assessment: 1-patient presented to hospital with mental status changes mostly agitation and behavioral issues in this patient who did have history of BPH urinary retention and suprapubic catheter history of recurrent UTIs positive UA concerning for a UTI responsible for his symptoms as no other obvious focus of infection in this patient currently breathing comfortably room air lungs are clear auscultation abdominal soft no evidence of any cellulitis (1) Catheter-associated urinary tract infection Current Visit: Yes Status: Acute Code(s): T83.511A - I/I REACT D/T INDWELLING URETHRAL CATHETER, INIT; N39.0 - URINARY TRACT INFECTION, SITE NOT SPECIFIED SNOMED Code(s): 148955516 Plan: 1-Rocephin 2 g IV piggyback daily 2-gentle IV fluid We will follow on clinical condition and cultures to further adjust medication if needed Thank you for this consultation we will follow the patient along with you Time with Patient: Greater than 30
[2020-11-05] MEDS ORDERED: LORazepam 2 MG/ML INJ IV STA (21:59)
[2020-11-05] MEDS ORDERED: LORazepam 2 MG/ML INJ IV PRN (21:59)
--- NOTE | 2020-11-05 23:15 | P.HPIM ---
History of Present Illness Patient was sent from [facility] secondary to agitation and behavioral issues with the staff. per EMS staff patient was exercising and trying 2 bites and hit staff. Patient when I saw him was sleeping, he received Ativan earlier and he cannot wake up at answer my questions or follow commands. Patient is a known history of dementia. He was admitted 2 weeks ago for similar complaints with possible UTI and urine culture showing 2 strains of resistant Proteus and aggressive behavior been evaluated by psychiatrist. At that time he was not discharged on antibiotic. Patient also with suprapubic Alba catheter for history of urinary retention with frequent UTIs. Vitals are stable. Labs unremarkable including CBC, BMP and LFT. Urine analysis is suspicious for infection Review of Systems N/a, patient could not provide information Past Medical History Past Medical History: CVA/TIA, Dementia, Diabetes Mellitus, Hyperlipidemia, Hypertension, Prostate Disorder Additional Past Medical History / Comment(s): Benign prostatcc hyperplasia with lower urinary tract symptoms. Aphasia (6 word vocabulary), hemiplegia/hemiparesi s R dominant side. Anemia. Insomnia History of Any Multi-Drug Resistant Organisms: None Reported Additional Past Surgical History / Comment(s): unknown Past Anesthesia/Blood Transfusion Reactions: No Reported Reaction Past Psychological History: Anxiety Smoking Status: Never smoker Past Alcohol Use History: None Reported Past Drug Use History: None Reported Medications and Allergies Home Medications Medication Instructions Recorded Confirmed Type Acetaminophen [Tylenol Extra 500 mg PO Q6H 10/20/20 11/05/20 History Strength] Atorvastatin Calcium [Lipitor] 20 mg PO HS@199910/20/20 11/05/20 History Insulin Detemir (Levemir) [Levemir] 48 unit SQ DAILY@0710/20/20 11/05/20 History Lisinopril [Zestril] 10 mg PO HS@199910/20/20 11/05/20 History Loperamide [Imodium] 2 mg PO DAILY PRN 10/20/20 11/05/20 History Mag Hydrox/Aluminum Hyd/Simeth 30 ml PO Q6H PRN 10/20/20 11/05/20 History [Mylanta Maximum Strength Liq] metFORMIN HCL [Glucophage] 1,000 mg PO BID 10/20/20 11/05/20 History Divalproex [Depakote] 250 mg PO BID tablet. 10/22/20 11/05/20 Rx ALPRAZolam [Xanax] 0.25 mg PO Q8H PRN 11/05/20 11/05/20 History Health Shake 1 can PO BID@0700,1600 11/05/20 11/05/20 History QUEtiapine [SEROquel] 25 mg PO HS@2000 11/05/20 11/05/20 History Allergies Allergy/AdvReac Type Severity Reaction Status Date / Time latex Allergy Unknown Verified 11/05/20 12:23 Physical Exam Vitals: Vital Signs Temp Pulse Pulse Resp BP BP Pulse Ox 11/05/20 19:36 16 11/05/20 13:27 98.5 F 81 16 157/74 100 11/05/20 12:34 98.7 F 80 16 175/75 99 11/05/20 09:51 98.2 F 88 188/72 99 Intake and Output 11/05/20 11/05/20 11/06/20 14:59 22:59 06:59 Output Total 200 Balance -200 Output: Urine 200 Other: Weight 72.575 kg -GENERAL: The patient is confused and sleepy but cannot to still, not in any acute distress. Well developed, well nourished. HEENT: Pupils are round and equally reacting to light. EOMI. No scleral icterus. No conjunctival pallor. Normocephalic, atraumatic. No pharyngeal erythema. No thyromegaly. CARDIOVASCULAR: S1 and S2 present. No murmurs, rubs, or gallops. PULMONARY: Chest is clear to auscultation, no wheezing or crackles. -ABDOMEN: Soft, nontender, nondistended, normoactive bowel sounds. No palpable organomegaly. Suprapubic Alba catheter MUSCULOSKELETAL: No joint swelling or deformity. EXTREMITIES: No cyanosis, clubbing, or pedal edema. NEUROLOGICAL: Gross neurological examination did not reveal any focal deficits. SKIN: No rashes. No petechiae Results CBC & Chem 7: 11/05/20 10:09 11/05/20 10:09 Labs: Abnormal Lab Results - Last 24 Hours (Table) 11/05/20 11/05/20 11/05/20 Range/Units 10:09 10:09 10:18 Glucose 211 H (74-99) mg/dL POC Glucose (mg/dL) 196 H (75-99) mg/dL Urine Protein 2+ H (Negative) Urine Glucose (UA) Trace H (Negative) Urine Ketones Trace H (Negative) Urine Blood Small H (Negative) Ur Leukocyte Esterase Moderate H (Negative) Urine RBC 28 H (0-5) /hpf Urine WBC 8 H (0-5) /hpf Urine Bacteria Rare H (None) /hpf Urine Mucus Few H (None) /hpf 11/05/20 11/05/20 Range/Units 16:51 20:30 Glucose (74-99) mg/dL POC Glucose (mg/dL) 215 H 293 H (75-99) mg/dL Urine Protein (Negative) Urine Glucose (UA) (Negative) Urine Ketones (Negative) Urine Blood (Negative) Ur Leukocyte Esterase (Negative) Urine RBC (0-5) /hpf Urine WBC (0-5) /hpf Urine Bacteria (None) /hpf Urine Mucus (None) /hpf Thrombosis Risk Factor Assmnt - Choose All That Apply Each Risk Factor Represents 2 Points: Age 61-74 years Thrombosis Risk Factor Assessment Total Risk Factor Score: 2 Thrombosis Risk Factor Assessment Level: Low Risk Assessment and Plan Assessment: Acute urinary tract infection related to Alba catheter Dementia with aggressive behavior Altered mental status with combination of metabolic/toxic encephalopathy History of BPH, urinary retention status post indwelling suprapubic catheter Plan: This is a pleasant 75 years old male who presents with UTI and aggressive behaviors related to dementia. Continue with ceftriaxone per ID team. Follow-up urine culture Discontinue benzodiazepines of Ativan and Xanax. Depakote and Seroquel and follow-up with psych consult Labs and medication were reviewed.. Continue same treatment. Continue with symptomatic treatment. Resume home medication. Monitor lytes and vitals. DVT and GI prophylaxis. Further recommendationsas per clinical course of the patient DVT prophylaxis: Subcutaneous heparin GI Prophylaxis: Pepcid Prognosis is guarded
[2020-11-06] MEDS: ACETAMINOPHEN TAB 500 MG TAB PO SCH ×3 (01:34→22:09)
[2020-11-06 07:26] LABS: Glucose,Whole Blood 180 mg/dL (75-99)
[2020-11-06] MEDS: INSULIN ASPART (NovoLOG) 100 UNIT/ML VIAL SQ SCH ×4 (09:51→22:09)
[2020-11-06 11:30] LABS: Glucose,Whole Blood 175 mg/dL (75-99)
[2020-11-06] MEDS: HALOPERIDOL LACTATE 5 MG/ML 1 ML VIAL IM PRN (14:18)
[2020-11-06] MEDS: DIVALPROEX 250 MG TABLET.DR PO SCH ×2 (14:25→22:09)
[2020-11-06] MEDS: metFORMIN 500 MG TAB PO SCH ×2 (14:25→22:08)
--- NOTE | 2020-11-06 14:55 | P.CN ---
Psychiatric Consult - . Consult date: 11/06/20 Consult:: 11/06/20 14:21 IDENTIFYING DATA: This patient is a 75-year-old male. REASON FOR REFERRAL: Psychiatry was consulted for agitation HISTORY OF PRESENT ILLNESS: The patient presented to the hospital [facility] due to agitation and behavioral issues with staff . According to his records, he was trying to bite and hit staff. Patient was admitted on the medical floor. Currently he is receiving treatment for acute urinary tract infection. According to the nurse report, the patient is being agitated with staff and confused. The patient attempted to pull his IV line and the catheter. He refused his morning medications. Patient was seen in the presence of a nurse and a sitter. When this clinician walked into the patient's room for the assessment, the patient says " No" then said " Go " . The patient attempted to kick this clinician with his foot. The patient appears confused. Currently the patient is on Haldol 2 mg IV every 8 hours for agitation, Seroquel 25 mg nightly in addition to Depakote 250 mg BID slightly for psychiatric reasons since he has no history of seizures. PAST PSYCHIATRIC HISTORY: Working to his records he has history of dementia. As an known whether or not he has any other psychiatric issues and whether or not he had previous inpatient psychiatric admissions or treatment PAST MEDICAL HISTORY: Currently receiving treatment for acute urinary tract infection, history of CVA/TIA, Diabetes Mellitus, Hyperlipidemia, Hypertension, Prostate Disorder ALLERGIES: as per EMR. CHEMICAL DEPENDENCY HISTORY: Could not be determined due to lack of participation FAMILY PSYCHIATRIC/SUBSTANCE USE HISTORY: Unknown at this time due to lack of participation patient appears confused and agitated SOCIAL HISTORY: It is difficult to obtain the social history as the patient is currently confused and agitated MENTAL STATUS EXAM: General Appearance: . The patient is laying in bed, dressed in a hospital gown and may poor eye contact. The patient appears confused and agitated. Behavior: agitated behavior.] Speech: Patient's speech difficult to understand Mood/Affect: It was difficult to assess his mood due to lack of participation. Affect is agitated Suicidality/Homicidality: It was difficult to assess whether or not he has any SI/HI Perceptions: Difficult to assess Though content/process: difficult to assess at this time Memory and concentration: The patient is alert but confused Judgment and insight: poor IMPRESSIONS: - Delirium due to general medical condition - History of dementia Comorbid medical issues; Currently receiving treatment for acute urinary tract infection, history of CVA/TIA, Diabetes Mellitus, Hyperlipidemia, Hypertension, Prostate Disorder PLAN: - Continue sitter -Delirium precautions recommended with patient including - avoiding use of narcotics and [place] [employer] sedatives, limit anticholinergic medications when possible, frequent re-orientation, minimize use of restraints, open window shades during the day and close them at night - Recommend the following medication changes/additions: Agree to continue Haldol 2 mg every 6-8 hours for agitation . Discontinue Xanax due to the concern it might worsen the confusion and agitation . Continue Seroquel to simplify his medications. Please verify the reason for him to be on Depakote. -Communicated plan to patient's nurse -Will continue to follow along -Please contact with any questions. 11/06/20 14:29 11/06/20 14:37
[2020-11-06 16:29] LABS: Glucose,Whole Blood 221 mg/dL (75-99)
[2020-11-06] MEDS: INSULIN DETEMIR (LEVEMIR) 100 UNIT/ML SYR SQ SCH (17:36)
--- NOTE | 2020-11-06 19:06 | PN ---
PROGRESS NOTE DATE OF SERVICE: 11/06/2020 REASON FOR FOLLOWUP: Urinary tract infection. INTERVAL HISTORY: Patient is afebrile. The patient is currently sleepy as the patient had been up all night per the sitter at the bedside. No agitation has been noted. No vomiting or diarrhea. PHYSICAL EXAMINATION: Blood pressure is 147/84, pulse of 60, temperature is 97.7, he is 100% on room air. General description is an elderly male lying in bed in no distress. Respiratory system unlabored breathing. Clear to auscultation anteriorly. Heart S1, S2. Regular rate and rhythm. Abdomen soft no tenderness. LABS: No new labs have been obtained today. Cultures currently pending. DIAGNOSTIC IMPRESSION AND PLAN: Patient admitted to the hospital with aggressive behavior and concern for catheter associated urinary tract infection. The patient's Alba catheter has been changed. The patient is currently on Rocephin to continue while waiting for the culture to finalize and monitor clinical course closely. MMODL / IJN: [id number] /
[2020-11-06 21:50] LABS: Glucose,Whole Blood 305 mg/dL (75-99)
[2020-11-06] MEDS: lisinopriL 10 MG TAB PO SCH (22:09)
[2020-11-06] MEDS: ATORVASTATIN 20 MG TAB PO SCH (22:09)
--- NOTE | 2020-11-06 22:16 | P.PN ---
Subjective Patient was sent from [facility] secondary to agitation and behavioral issues with the staff. per EMS staff patient was exercising and trying 2 bites and hit staff. Patient when I saw him was sleeping, he received Ativan earlier and he cannot wake up at answer my questions or follow commands. Patient is a known history of dementia. He was admitted 2 weeks ago for similar complaints with possible UTI and urine culture showing 2 strains of resistant Proteus and aggressive behavior been evaluated by psychiatrist. At that time he was not discharged on antibiotic. Patient also with suprapubic Alba catheter for history of urinary retention with frequent UTIs. Vitals are stable. Labs unremarkable including CBC, BMP and LFT. Urine analysis is suspicious for infection 11/06/2020 Patient is still sleepy today due to benzodiazepines. Xanax was discontinue it and placed on Haldol as needed. Continue Seroquel. Psychiatrist evaluated the patient Remains on Rocephin for UTI related to his suprapubic Alba catheter Keep sitter at bedside Objective - Vital Signs Vital signs: Vital Signs Temp 97.7 F 11/06/20 08:00 Pulse 68 11/06/20 08:00 Resp 17 11/06/20 08:00 BP 147/84 11/06/20 08:00 Pulse Ox 100 11/06/20 08:00 Intake & Output 11/05/20 11/06/20 11/06/20 18:59 06:59 18:59 Output Total 200 975 650 Balance -200 -975 -650 Weight 72.575 kg Output: Urine 200 975 650 - Exam GENERAL: The patient is confused and sleepy HEENT: Pupils are round and equally reacting to light. EOMI. No scleral icterus. No conjunctival pallor. Normocephalic, atraumatic. No pharyngeal erythema. No thyromegaly. CARDIOVASCULAR: S1 and S2 present. No murmurs, rubs, or gallops. PULMONARY: Chest is clear to auscultation, no wheezing or crackles. ABDOMEN: Soft, nontender, nondistended, normoactive bowel sounds. No palpable organomegaly. MUSCULOSKELETAL: No joint swelling or deformity. EXTREMITIES: No cyanosis, clubbing, or pedal edema. NEUROLOGICAL: Gross neurological examination did not reveal any focal deficits. SKIN: No rashes. no petechiae. - Labs CBC & Chem 7: 11/05/20 10:09 11/05/20 10:09 Labs: Abnormal Lab Results - Last 24 Hours (Table) 11/05/20 11/05/20 11/06/20 Range/Units 16:51 20:30 07:25 POC Glucose (mg/dL) 215 H 293 H 180 H (75-99) mg/dL 11/06/20 Range/Units 11:29 POC Glucose (mg/dL) 175 H (75-99) mg/dL Microbiology - Last 24 Hours (Table) 11/05/20 12:20 Blood Culture - Preliminary Blood No Growth after 24 hours Assessment and Plan Assessment: Acute urinary tract infection related to Alba catheter Dementia with aggressive behavior Altered mental status with combination of metabolic/toxic encephalopathy of the top of his dementia History of BPH, urinary retention status post indwelling suprapubic catheter Plan: This is a pleasant 75 years old male who presents with UTI and aggressive behaviors related to dementia. Continue with ceftriaxone per ID team. Follow-up urine culture Discontinue benzodiazepines of Ativan and Xanax. Depakote and Seroquel and follow-up with psych consult Haldol as needed Keep sitter at bedside Labs and medication were reviewed.. Continue same treatment. Continue with symptomatic treatment. Resume home medication. Monitor lytes and vitals. DVT and GI prophylaxis. Further recommendations as per clinical course of the patient DVT prophylaxis: Subcutaneous heparin GI Prophylaxis: Pepcid Prognosis is guarded
[2020-11-07] MEDS: ACETAMINOPHEN TAB 500 MG TAB PO SCH ×4 (02:05→20:38)
[2020-11-07 06:51] LABS: Glucose,Whole Blood 148 mg/dL (75-99)
[2020-11-07] MEDS: INSULIN ASPART (NovoLOG) 100 UNIT/ML VIAL SQ SCH ×4 (08:59→22:10)
[2020-11-07] MEDS: INSULIN DETEMIR (LEVEMIR) 100 UNIT/ML SYR SQ SCH (09:00)
[2020-11-07] MEDS: DIVALPROEX 250 MG TABLET.DR PO SCH ×2 (09:00→22:10)
[2020-11-07] MEDS: metFORMIN 500 MG TAB PO SCH ×2 (09:01→22:10)
[2020-11-07 11:45] LABS: Glucose,Whole Blood 198 mg/dL (75-99)
[2020-11-07 16:38] LABS: Glucose,Whole Blood 204 mg/dL (75-99)
--- NOTE | 2020-11-07 18:50 | PN ---
PROGRESS NOTE DATE OF SERVICE: 11/07/2020 REASON FOR FOLLOWUP: Urinary tract infection. INTERVAL HISTORY: The patient is afebrile. The patient is currently breathing comfortably. He is more awake and alert. Denies having any chest pain or cough. No vomiting or diarrhea has been reported by the nursing staff. PHYSICAL EXAMINATION: Blood pressure 147/61 with a pulse of 73, temperature 98.1. He is 97% on room air. General description is an elderly male lying in bed in no distress. Respiratory system: Unlabored breathing, clear to auscultation anteriorly. Heart S1, S2. Regular rate and rhythm. Abdomen: Soft, no tenderness. LABS: No new labs have been obtained today. Urine so far showing group D Enterococcus. DIAGNOSTIC IMPRESSION AND PLAN: Patient admitted to the hospital with aggressive behavior concerning for urinary tract infection. Urine now showing group D Enterococcus. Antibiotic will be adjusted to Unasyn and possible on discharge. Continue supportive care. MMODL / IJN: [id number] /
[2020-11-07] MEDS: lisinopriL 10 MG TAB PO SCH (20:39)
[2020-11-07] MEDS: ATORVASTATIN 20 MG TAB PO SCH (20:39)
--- NOTE | 2020-11-07 20:49 | P.PN ---
Subjective Patient was sent from [facility] secondary to agitation and behavioral issues with the staff. per EMS staff patient was exercising and trying 2 bites and hit staff. Patient when I saw him was sleeping, he received Ativan earlier and he cannot wake up at answer my questions or follow commands. Patient is a known history of dementia. He was admitted 2 weeks ago for similar complaints with possible UTI and urine culture showing 2 strains of resistant Proteus and aggressive behavior been evaluated by psychiatrist. At that time he was not discharged on antibiotic. Patient also with suprapubic Alba catheter for history of urinary retention with frequent UTIs. Vitals are stable. Labs unremarkable including CBC, BMP and LFT. Urine analysis is suspicious for infection 11/06/2020 Patient is still sleepy today due to benzodiazepines. Xanax was discontinue it and placed on Haldol as needed. Continue Seroquel. Psychiatrist evaluated the patient Remains on Rocephin for UTI related to his suprapubic Alba catheter Keep sitter at bedside 11/07/2020 For the last 2 days patient was almost obtunded whenever I can see, if this time he is awake, interactive appropriately, he follows commands, when he was trying to answer questions he could not maybe by only yes or no and sometimes one Word for example when asking if I turn the lights down he says "down". As patient could not express himself is starts crying. However he looks more stable and alert than previously. Hemodynamically stable.. On Seroquel and Haldol as needed, no benzodiazepines. Son is been treated for UTI related to suprapubic catheter, discussed with staff to change the Alba cath Objective - Vital Signs Vital signs: Vital Signs Temp 98.6 F 11/07/20 15:36 Pulse 76 11/07/20 15:36 Resp 20 11/07/20 15:36 BP 147/61 11/07/20 15:36 Pulse Ox 97 11/07/20 15:36 Intake & Output 11/06/20 11/07/20 11/07/20 18:59 06:59 18:59 Output Total 650 900 850 Balance -650 900 -850 Output: Urine 650 900 850 Other: Voiding Method Indwelling Catheter # Bowel Movements 1 - Exam GENERAL: The patient is confused and sleepy HEENT: Pupils are round and equally reacting to light. EOMI. No scleral icterus. No conjunctival pallor. Normocephalic, atraumatic. No pharyngeal erythema. No thyromegaly. CARDIOVASCULAR: S1 and S2 present. No murmurs, rubs, or gallops. PULMONARY: Chest is clear to auscultation, no wheezing or crackles. ABDOMEN: Soft, nontender, nondistended, normoactive bowel sounds. No palpable organomegaly. MUSCULOSKELETAL: No joint swelling or deformity. EXTREMITIES: No cyanosis, clubbing, or pedal edema. NEUROLOGICAL: Gross neurological examination did not reveal any focal deficits. SKIN: No rashes. no petechiae. - Labs CBC & Chem 7: 11/05/20 10:09 11/05/20 10:09 Labs: Abnormal Lab Results - Last 24 Hours (Table) 11/06/20 11/07/20 11/07/20 Range/Units 21:48 06:49 11:43 POC Glucose (mg/dL) 305 H 148 H 198 H (75-99) mg/dL 11/07/20 Range/Units 16:37 POC Glucose (mg/dL) 204 H (75-99) mg/dL Microbiology - Last 24 Hours (Table) 11/06/20 02:50 Urine Culture - Preliminary Urine,Suprapubic Group D Enterococcus 11/05/20 12:20 Blood Culture - Preliminary Blood No Growth after 48 hours Assessment and Plan Assessment: Acute urinary tract infection related to Alba catheter Dementia with aggressive behavior Altered mental status with combination of metabolic/toxic encephalopathy of the top of his dementia History of BPH, urinary retention status post indwelling suprapubic catheter Plan: This is a pleasant 75 years old male who presents with UTI and aggressive beha viors related to dementia. Continue with ceftriaxone per ID team. Follow-up urine culture Discontinue benzodiazepines of Ativan and Xanax. Depakote and Seroquel and follow-up with psych consult Haldol as needed Keep sitter at bedside Labs and medication were reviewed.. Continue same treatment. Continue with symptomatic treatment. Resume home medication. Monitor lytes and vitals. DVT and GI prophylaxis. Further recommendations as per clinical course of the patient DVT prophylaxis: Subcutaneous heparin GI Prophylaxis: Pepcid Prognosis is guarded
[2020-11-07 21:04] LABS: Glucose,Whole Blood 259 mg/dL (75-99)
[2020-11-08] MEDS: AMPICILLIN-SULBACTAM 1.5 GM in SODIUM CHLORIDE 0.9% 50 ML IVPB SCH ×5 (00:06→22:50)
[2020-11-08] MEDS: ACETAMINOPHEN TAB 500 MG TAB PO SCH ×4 (02:18→19:47)
[2020-11-08 06:50] LABS: Glucose,Whole Blood 199 mg/dL (75-99)
[2020-11-08] MEDS: HALOPERIDOL LACTATE 5 MG/ML 1 ML VIAL IM PRN (07:36)
[2020-11-08] MEDS: INSULIN ASPART (NovoLOG) 100 UNIT/ML VIAL SQ SCH ×4 (07:37→19:47)
[2020-11-08] MEDS: INSULIN DETEMIR (LEVEMIR) 100 UNIT/ML SYR SQ SCH (07:37)
[2020-11-08] MEDS: DIVALPROEX 250 MG TABLET.DR PO SCH ×3 (08:59→19:46)
[2020-11-08] MEDS: metFORMIN 500 MG TAB PO SCH ×3 (09:01→19:46)
[2020-11-08] MEDS ORDERED: HALOPERIDOL LACTATE 5 MG/ML 1 ML VIAL IM PRN (11:00)
[2020-11-08 11:34] LABS: Glucose,Whole Blood 230 mg/dL (75-99)
--- NOTE | 2020-11-08 12:33 | P.PN ---
Subjective Patient was sent from [facility] secondary to agitation and behavioral issues with the staff. per EMS staff patient was exercising and trying 2 bites and hit staff. Patient when I saw him was sleeping, he received Ativan earlier and he cannot wake up at answer my questions or follow commands. Patient is a known history of dementia. He was admitted 2 weeks ago for similar complaints with possible UTI and urine culture showing 2 strains of resistant Proteus and aggressive behavior been evaluated by psychiatrist. At that time he was not discharged on antibiotic. Patient also with suprapubic Alba catheter for history of urinary retention with frequent UTIs. Vitals are stable. Labs unremarkable including CBC, BMP and LFT. Urine analysis is suspicious for infection 11/06/2020 Patient is still sleepy today due to benzodiazepines. Xanax was discontinue it and placed on Haldol as needed. Continue Seroquel. Psychiatrist evaluated the patient Remains on Rocephin for UTI related to his suprapubic Alba catheter Keep sitter at bedside 11/07/2020 For the last 2 days patient was almost obtunded whenever I can see, if this time he is awake, interactive appropriately, he follows commands, when he was trying to answer questions he could not maybe by only yes or no and sometimes one Word for example when asking if I turn the lights down he says "down". As patient could not express himself is starts crying. However he looks more stable and alert than previously. Hemodynamically stable.. On Seroquel and Haldol as needed, no benzodiazepines. Patient is been treated for UTI related to suprapubic catheter, discussed with staff to change the Alba cath 11/08/20 Patient got agitated this morning with the nurse and a aide trying to get vitals and grafting and of the aide. He got 2 mg of Haldol and now he is more sleepy Psychiatrist following the case. Patient is afebrile. His urine culture is growing enterococcus and antibiotics were adjusted to Unasyn No sitter at bedside today Objective - Vital Signs Vital signs: Vital Signs Temp 97.6 F 11/08/20 03:24 Pulse 81 11/08/20 03:24 Resp 17 11/08/20 08:00 BP 187/76 11/08/20 03:24 Pulse Ox 96 11/08/20 03:24 Intake & Output 11/07/20 11/08/20 11/08/20 18:59 06:59 18:59 Output Total 850 1000 Balance -850 -1000 Output: Urine 850 1000 Other: Voiding Method Indwelling Catheter Indwelling Catheter Indwelling Catheter # Voids 1 # Bowel Movements 1 - Exam GENERAL: The patient is confused and sleepy HEENT: Pupils are round and equally reacting to light. EOMI. No scleral icterus. No conjunctival pallor. Normocephalic, atraumatic. No pharyngeal erythema. No thyromegaly. CARDIOVASCULAR: S1 and S2 present. No murmurs, rubs, or gallops. PULMONARY: Chest is clear to auscultation, no wheezing or crackles. ABDOMEN: Soft, nontender, nondistended, normoactive bowel sounds. No palpable organomegaly. MUSCULOSKELETAL: No joint swelling or deformity. EXTREMITIES: No cyanosis, clubbing, or pedal edema. NEUROLOGICAL: Gross neurological examination did not reveal any focal deficits. SKIN: No rashes. no petechiae. - Labs CBC & Chem 7: 11/05/20 10:09 11/05/20 10:09 Labs: Abnormal Lab Results - Last 24 Hours (Table) 11/07/20 11/07/20 11/08/20 Range/Units 16:37 21:02 06:48 POC Glucose (mg/dL) 204 H 259 H 199 H (75-99) mg/dL 11/08/20 Range/Units 11:33 POC Glucose (mg/dL) 230 H (75-99) mg/dL Microbiology - Last 24 Hours (Table) 11/06/20 02:50 Urine Culture - Preliminary Urine,Suprapubic Group D Enterococcus 11/05/20 12:20 Blood Culture - Preliminary Blood No Growth after 48 hours Assessment and Plan Assessment: Acute urinary tract infection related to Alba catheter Dementia with aggressive behavior Altered mental status with combination of metabolic/toxic encephalopathy of the top of his dementia History of BPH, urinary retention status post indwelling suprapubic catheter Plan: This is a pleasant 75 years old male who presents with UTI and aggressive behaviors related to dementia. Continue with Unasyn per ID team. Follow-up urine culture Discontinue benzodiazepines of Ativan and Xanax. Depakote and Seroquel and follow-up with psych consult Haldol as needed Labs and medication were reviewed.. Continue same treatment. Continue with symptomatic treatment. Resume home medication. Monitor lytes and vitals. DVT and GI prophylaxis. Further recommendations as per clinical course of the patient DVT prophylaxis: Subcutaneous heparin GI Prophylaxis: Pepcid Prognosis is guarded
[2020-11-08 16:47] LABS: Glucose,Whole Blood 143 mg/dL (75-99)
[2020-11-08 19:37] LABS: Glucose,Whole Blood 232 mg/dL (75-99)
[2020-11-08] MEDS: ATORVASTATIN 20 MG TAB PO SCH (19:46)
[2020-11-08] MEDS: lisinopriL 10 MG TAB PO SCH (19:47)
[2020-11-09] MEDS: ACETAMINOPHEN TAB 500 MG TAB PO SCH ×3 (03:06→13:47)
[2020-11-09] MEDS: AMPICILLIN-SULBACTAM 1.5 GM in SODIUM CHLORIDE 0.9% 50 ML IVPB SCH ×3 (05:48→18:20)
[2020-11-09 07:00] LABS: Glucose,Whole Blood 154 mg/dL (75-99)
[2020-11-09] MEDS: DIVALPROEX 250 MG TABLET.DR PO SCH (07:16)
[2020-11-09] MEDS: INSULIN DETEMIR (LEVEMIR) 100 UNIT/ML SYR SQ SCH (07:23)
[2020-11-09] MEDS: metFORMIN 500 MG TAB PO SCH (07:23)
[2020-11-09] MEDS: INSULIN ASPART (NovoLOG) 100 UNIT/ML VIAL SQ SCH ×3 (07:24→18:18)
[2020-11-09 08:30] VITALS: RESP 18
--- NOTE | 2020-11-09 09:23 | PN ---
PROGRESS NOTE DATE OF SERVICE: 11/08/2020 REASON FOR FOLLOWUP: Enterococcus urinary tract infection. INTERVAL HISTORY: Patient is breathing comfortably. The patient is hemodynamically stable. No vomiting, diarrhea or any other changes reported by nursing staff. The patient himself is unable to provide any history. PHYSICAL EXAMINATION: Blood pressure is 144/66, pulse 80, temperature is 97.4. He is 97% on room air. General description is an elderly male lying in bed in no distress. Respiratory system: Unlabored breathing. Clear to auscultation anteriorly. Heart S1, S2. Regular rate and rhythm. Abdomen soft. No tenderness. LABS: Urine is Enterococcus sensitivities pending. Blood culture negative. DIAGNOSTIC IMPRESSION AND PLAN: Patient admitted to the hospital with mental status changes, multifactorial with a component of urinary tract infection, urine showing Enterococcus. Patient is covered with Unasyn to continue while waiting for sensitivity to finalize and monitor clinical course closely. MMODL / IJN: [id number] /
[2020-11-09 11:55] LABS: Glucose,Whole Blood 290 mg/dL (75-99)
--- NOTE | 2020-11-09 14:24 | PN ---
PROGRESS NOTE DATE OF SERVICE: 11/09/2020 REASON FOR FOLLOWUP: Enterococcus urinary tract infection. INTERVAL HISTORY: The patient is afebrile. The patient seems to be more awake and alert. He is breathing comfortably. Was unable to provide any history. No vomiting, diarrhea or agitation has been noticed by nursing staff. PHYSICAL EXAMINATION: Blood pressure is 151/80 with a pulse of 72. Temperature is 97.8. He is 98% on room air. General description is an elderly male lying in bed in no distress. Respiratory system: Unlabored breathing, clear to auscultation anteriorly. Heart S1, S2. Regular rate and rhythm. Abdomen soft, no tenderness. LABS: No new labs have been obtained today. Culture showing Enterococcus faecalis, which is sensitive pathogen. DIAGNOSTIC IMPRESSION AND PLAN: Patient with Enterococcus faecalis urinary tract infection. Overall clinical improvement on Unasyn to finish a course of oral Augmentin for about a week and close outpatient followup. MMODL / IJN: [id number] /
[2020-11-09 14:32] VITALS: BP 151/82; PULSE 77; TEMP 97.7
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
[2020-11-09 16:48] LABS: Glucose,Whole Blood 155 mg/dL (75-99)
== END 2020-11-09 18:10 | DRG 698 ==
LOC: EC 09:48 → 4SSUR 11:57 → OBSVTOIN 11-06 16:11
PROVIDERS: ADMIT Internal Medicine; ATTEND Internal Medicine
DX: T83.518A Infection and inflammatory reaction due to other urinary catheter, initial encounter (principal); G92 Toxic encephalopathy; R47.01 Aphasia; F03.91 Unspecified dementia, unspecified severity, with behavioral disturbance; F05 Delirium due to known physiological condition; N39.0 Urinary tract infection, site not specified; G81.91 Hemiplegia, unspecified affecting right dominant side; T83.510A Infection and inflammatory reaction due to cystostomy catheter, initial encounter; Z79.4 Long term (current) use of insulin; Z79.899 Other long term (current) drug therapy; Y84.6 Urinary catheterization as the cause of abnormal reaction of the patient, or of later complication, without mention of misadventure at the time of the procedure; N40.1 Benign prostatic hyperplasia with lower urinary tract symptoms; I10 Essential (primary) hypertension; F41.9 Anxiety disorder, unspecified; Z86.73 Personal history of transient ischemic attack (TIA), and cerebral infarction without residual deficits; Z87.440 Personal history of urinary (tract) infections; B95.2 Enterococcus as the cause of diseases classified elsewhere; E11.9 Type 2 diabetes mellitus without complications; E78.5 Hyperlipidemia, unspecified; N42.9 Disorder of prostate, unspecified; R33.8 Other retention of urine
CPT/HCPCS: 36415; 80053; 80164; 81001; 82550; 84484; 85025; 85610; 85730; 87040; 87077; 87086; 87186; 96374; 99285

== ENCOUNTER 2020-12-29 15:12 | Inpatient (IN) | payer MEDICARE, BC, OTHER ==
[2020-12-29] MEDS ORDERED: SODIUM CHLORIDE 0.9% 500 ML 500 ML IV STA (15:29)
--- NOTE | 2020-12-29 15:34 | ED ---
General Adult HPI - General Chief complaint: Weakness Stated complaint: neuro deficit Time Seen by Provider: 12/29/20 15:23 Source: patient, EMS, RN notes reviewed Mode of arrival: EMS Limitations: language barrier, physical limitation - History of Present Illness Initial comments: Patient is a pleasant 75-year-old male presenting to the emergency department with some concerns of patient having some increased weakness than normal. Patient was reported as normal this morning. Patient was seen at 1:30 and found to have lack of understanding that is right side was chronically weak. Patient reportedly did have a fall. Patient is a very poor historian and does not answer questions appropriately. Patient does have history of chronic right- sided weakness from previous stroke. - Related Data Home Medications Medication Instructions Recorded Confirmed Atorvastatin Calcium [Lipitor] 20 mg PO HS@199910/20/20 12/29/20 Lisinopril [Zestril] 10 mg PO DAILY 10/20/20 12/29/20 Loperamide [Imodium] 2 mg PO Q2H PRN 10/20/20 12/29/20 Mag Hydrox/Aluminum Hyd/Simeth 30 ml PO Q6H PRN 10/20/20 12/29/20 [Mylanta Maximum Strength Liq] metFORMIN HCL [Glucophage] 1,000 mg PO BID 10/20/20 12/29/20 Health Shake 1 can PO BID@0700,1600 11/05/20 12/29/20 Acetaminophen [Tylenol 8 Hour] 650 mg PO Q6H PRN 12/29/20 12/29/20 Divalproex Sodium [Depakote] 375 mg PO BID 12/29/20 12/29/20 Gabapentin [Neurontin] 100 mg PO DAILY 12/29/20 12/29/20 Gabapentin [Neurontin] 200 mg PO HS@199912/29/20 12/29/20 Insulin Glargine [Lantus Vial] 48 unit SQ DAILY@0700 12/29/20 12/29/20 Insulin Regular [HumuLIN R] See Protocol SQ AC-BID 12/29/20 12/29/20 LORazepam [Ativan] 0.5 mg PO Q8H PRN 12/29/20 12/29/20 Melatonin 3 mg PO HS@199912/29/20 12/29/20 Mirtazapine 7.5 mg PO HS@199912/29/20 12/29/20 risperiDONE [RisperDAL] 0.25 mg PO DAILY 12/29/20 12/29/20 risperiDONE [RisperDAL] 0.75 mg PO HS@199912/29/20 12/29/20 Allergies Allergy/AdvReac Type Severity Reaction Status Date / Time latex Allergy Unknown Verified 12/29/20 16:18 Review of Systems ROS Statement: Those systems with pertinent positive or pertinent negative responses have been documented in the HPI. ROS Other: All systems not noted in ROS Statement are negative. Limitations: ROS unobtainable due to patients medical condition Past Medical History Past Medical History: CVA/TIA, Dementia, Diabetes Mellitus, Hyperlipidemia, Hypertension, Prostate Disorder Additional Past Medical History / Comment(s): Benign prostatcc hyperplasia with lower urinary tract symptoms. Aphasia (6 word vocabulary), hemiplegia/hemiparesis R dominant side. Anemia. Insomnia History of Any Multi-Drug Resistant Organisms: None Reported Additional Past Surgical History / Comment(s): unknown Past Anesthesia/Blood Transfusion Reactions: No Reported Reaction Past Psychological History: Anxiety Smoking Status: Never smoker Past Alcohol Use History: None Reported Past Drug Use History: None Reported General Exam Limitations: language barrier, physical limitation General appearance: alert, in no apparent distress Head exam: Present: other (Ecchymosis left eye area) Eye exam: Present: normal appearance, PERRL, EOMI ENT exam: Present: normal oropharynx Neck exam: Present: normal inspection. Absent: tenderness Respiratory exam: Present: normal lung sounds bilaterally Cardiovascular Exam: Present: regular rate, normal rhythm GI/Abdominal exam: Present: soft. Absent: tenderness Extremities exam: Present: other (Right arm contracted) Neurological exam: Present: alert, altered Expanded Neurological exam: Present: protecting the airway Patient oriented to: Absent: person, place, time Cranial nerves: EOM's Intact: Normal Motor strength exam: RUE: 4, LUE: 5, RLE: 2/1, LLE: 4 Eye Response: (4) open spontaneously Motor Response: (6) obeys commands Verbal Response: (3) inappropriate words Psychiatric exam: Present: normal affect, normal mood Skin exam: Present: abrasion (Left eye region) Course Vital Signs 12/29/20 12/29/20 12/29/20 15:21 16:00 17:00 Temperature 98.5 F 98.3 F 98.5 F Pulse Rate 88 89 87 Respiratory 18 18 18 Rate Blood Pressure 128/55 144/88 145/82 O2 Sat by Pulse 99 99 99 Oximetry EKG Findings - EKG Comments: EKG Findings:: Sinus rhythm with a rate of 96. NH 110. QRS 90. QT 364. QTC 459. Normal axis. Normal QRS. No acute ST change. Artifact is present. Medical Decision Making - Medical Decision Making Patient reevaluated. Case discussed with Dr. Wise, covering for Dr. Johnson, who will admit. - Lab Data Result diagrams: 12/29/20 15:51 12/29/20 15:51 Lab Results 12/29/20 12/29/20 12/29/20 Range/Units 15:51 15:51 15:51 WBC 16.5 H (3.8-10.6) k/uL RBC 3.75 L (4.30-5.90) m/uL Hgb 11.0 L (13.0-17.5) gm/dL Hct 34.9 L (39.0-53.0) % MCV 93.0 (80.0-100.0) fL MCH 29.4 (25.0-35.0) pg MCHC 31.6 (31.0-37.0) g/dL RDW 12.9 (11.5-15.5) % Plt Count 265 (150-450) k/uL MPV 7.6 Neutrophils % 77 % Lymphocytes % 13 % Monocytes % 8 % Eosinophils % 1 % Basophils % 0 % Neutrophils # 12.6 H (1.3-7.7) k/uL Lymphocytes # 2.1 (1.0-4.8) k/uL Monocytes # 1.2 H (0-1.0) k/uL Eosinophils # 0.2 (0-0.7) k/uL Basophils # 0.0 (0-0.2) k/uL PT 9.9 (9.0-12.0) sec INR 0.9 (<1.2) APTT 24.5 (22.0-30.0) sec Sodium (137-145) mmol/L Potassium (3.5-5.1) mmol/L Chloride (98-107) mmol/L Carbon Dioxide (22-30) mmol/L Anion Gap mmol/L BUN (9-20) mg/dL Creatinine (0.66-1.25) mg/dL Est GFR (CKD-EPI)AfAm (>60 ml/min/1.73 sqM) Est GFR (CKD-EPI)NonAf (>60 ml/min/1.73 sqM) Glucose (74-99) mg/dL Calcium (8.4-10.2) mg/dL Total Bilirubin (0.2-1.3) mg/dL AST (17-59) U/L ALT (4-49) U/L Alkaline Phosphatase (38-126) U/L Total Protein (6.3-8.2) g/dL Albumin (3.5-5.0) g/dL Urine Color Light Yellow Urine Appearance Cloudy (Clear) Urine pH 6.5 (5.0-8.0) Ur Specific [place] 1.020 (1.001-1.035) Urine Protein 1+ H (Negative) Urine Glucose (UA) Negative (Negative) Urine Ketones 1+ H (Negative) Urine Blood Small H (Negative) Urine Nitrite Positive (Negative) Urine Bilirubin Negative (Negative) Urine Urobilinogen <2.0 (<2.0) mg/dL Ur Leukocyte Esterase Large H (Negative) Urine RBC 31 H (0-5) /hpf Urine WBC >182 H (0-5) /hpf Urine WBC Clumps Many H (None) /hpf Ur Squamous Epith Cells 1 (0-4) /hpf Urine Bacteria Moderate H (None) /hpf Urine Mucus Occasional H (None) /hpf 12/29/20 Range/Units 15:51 WBC (3.8-10.6) k/uL RBC (4.30-5.90) m/uL Hgb (13.0-17.5) gm/dL Hct (39.0-53.0) % MCV (80.0-100.0) fL MCH (25.0-35.0) pg MCHC (31.0-37.0) g/dL RDW (11.5-15.5) % Plt Count (150-450) k/uL MPV Neutrophils % % Lymphocytes % % Monocytes % % Eosinophils % % Basophils % % Neutrophils # (1.3-7.7) k/uL Lymphocytes # (1.0-4.8) k/uL Monocytes # (0-1.0) k/uL Eosinophils # (0-0.7) k/uL Basophils # (0-0.2) k/uL PT (9.0-12.0) sec INR (<1.2) APTT (22.0-30.0) sec Sodium 141 (137-145) mmol/L Potassium 4.9 (3.5-5.1) mmol/L Chloride 106 (98-107) mmol/L Carbon Dioxide 23 (22-30) mmol/L Anion Gap 12 mmol/L BUN 22 H (9-20) mg/dL Creatinine 0.92 (0.66-1.25) mg/dL Est GFR (CKD-EPI)AfAm >90 (>60 ml/min/1.73 sqM) Est GFR (CKD-EPI)NonAf 81 (>60 ml/min/1.73 sqM) Glucose 176 H (74-99) mg/dL Calcium 9.3 (8.4-10.2) mg/dL Total Bilirubin 0.2 (0.2-1.3) mg/dL AST 19 (17-59) U/L ALT 12 (4-49) U/L Alkaline Phosphatase 96 (38-126) U/L Total Protein 7.1 (6.3-8.2) g/dL Albumin 3.5 (3.5-5.0) g/dL Urine Color Urine Appearance (Clear) Urine pH (5.0-8.0) Ur Specific [place] (1.001-1.035) Urine Protein (Negative) Urine Glucose (UA) (Negative) Urine Ketones (Negative) Urine Blood (Negative) Urine Nitrite (Negative) Urine Bilirubin (Negative) Urine Urobilinogen (<2.0) mg/dL Ur Leukocyte Esterase (Negative) Urine RBC (0-5) /hpf Urine WBC (0-5) /hpf Urine WBC Clumps (None) /hpf Ur Squamous Epith Cells (0-4) /hpf Urine Bacteria (None) /hpf Urine Mucus (None) /hpf - Radiology Data Radiology results: report reviewed (Computed tomography scan of the brain shows large old left infarct.), image reviewed (Chest x-ray shows probable atelectasis) Disposition Clinical Impression: AMS (altered mental status), Urinary tract infection Disposition: ADMITTED IP TO THIS HOSP Is patient prescribed a controlled substance at d/c from ED?: No Referrals: Antione Johnson MD [Primary Care Provider] - 1-2 days Decision Time: 17:52
[2020-12-29] MEDS ORDERED: LORazepam 2 MG/ML INJ IV STA (15:48)
[2020-12-29 16:03] LABS: Basophils % (A) 0 %; Eosinophils # (A) 0.2 k/uL (0-0.7); Eosinophils % (A) 1 %; HCT 34.9 % (39.0-53.0); Lymphocytes # (A) 2.1 k/uL (1.0-4.8); Lymphocytes % (A) 13 %; MCH 29.4 pg (25.0-35.0); MCHC 31.6 g/dL (31.0-37.0); Mean Platelet Volume 7.6; Monocytes # (A) 1.2 k/uL (0-1.0); Monocytes % (A) 8 %; Neutrophils # (A) 12.6 k/uL (1.3-7.7); Neutrophils % (A) 77 %; Platelet Count 265 k/uL (150-450); RBC 3.75 m/uL (4.30-5.90); RDW 12.9 % (11.5-15.5); WBC 16.5 k/uL (3.8-10.6)
[2020-12-29 16:08] LABS: INR 0.9 (<1.2); Partial Thromboplastin Time 24.5 sec (22.0-30.0); Prothrombin Time 9.9 sec (9.0-12.0)
[2020-12-29 16:09] LABS: ALT 12 U/L (4-49); AST 19 U/L (17-59); African American GFR (CKD) >90 (>60 ml/min/1.73 sqM); Albumin 3.5 g/dL (3.5-5.0); Alkaline Phosphatase 96 U/L (38-126); Anion Gap 12 mmol/L; Blood Urea Nitrogen 22 mg/dL (9-20); Calcium 9.3 mg/dL (8.4-10.2); Carbon Dioxide 23 mmol/L (22-30); Chloride 106 mmol/L (98-107); Glucose 176 mg/dL (74-99); Non-African American GFR(CKD) 81 (>60 ml/min/1.73 sqM); Potassium 4.9 mmol/L (3.5-5.1); Sodium 141 mmol/L (137-145); Total Bilirubin 0.2 mg/dL (0.2-1.3); Total Protein 7.1 g/dL (6.3-8.2)
--- NOTE | 2020-12-29 16:19 | XR ---
EXAMINATION TYPE: XR chest 2V DATE OF EXAM: 12/29/2020 COMPARISON: NONE HISTORY: Weakness and altered mental status TECHNIQUE: Frontal and lateral views of the chest are obtained. FINDINGS: There is no focal air space opacity, pleural effusion, or pneumothorax seen. The cardiac silhouette size is within normal limits. The osseous structures are intact. Patient is rotated. Lottie g volumes are low. Probable subsegmental basilar atelectatic changes noted. IMPRESSION: Expiratory rotated exam, consider follow-up as indicated, probable basilar atelectasis
--- NOTE | 2020-12-29 16:32 | CT ---
EXAMINATION TYPE: CT brain yeyo white DATE OF EXAM: 12/29/2020 COMPARISON: NONE HISTORY: Fall injury with weakness right upper extremity and neck pain. CT DLP: 1901.7 mGycm. Automated Exposure Control for Dose Reduction was Utilized. TECHNIQUE: CT scan of the head and cervical spine are performed without contrast. FINDINGS: There is no acute intracranial hemorrhage or midline shift identified. Moderate ventricul ar and sulcal prominence. Large old infarct left frontoparietal and temporal lobes in the MCA distri bution with adjacent ex vacuo dilatation of the left ventricular system. The globes are intact and th e visualized sinuses are clear. The calvarium is intact. Cervical spine is visualized in its entirety from C1 through upper thoracic levels and demonstrates l evoconvex scoliosis centered mid cervical spine without evidence of acute fracture or dislocation. P revertebral soft tissue appears within normal limits. The C1-C2 articulation is within normal limits on the coronal images. Vertebral body height are maintained. There is grade 1 anterolisthesis C3 on C4. There is [id number] disc space narrowing and spurring C4-C5 level. Posterior disc herniati on effaces the anterior thecal sac at C3-C4 level and sagittal and axial images. Posterior spur disc complex effaces the anterior thecal sac at C4-C5 level on sagittal images. Review of axial images augustus ws no apical pneumothorax bilaterally. Thyroid gland is within normal limits. IMPRESSION: 1. There is no acute fracture or dislocation evident in the cervical spine. 2. No acute intracranial hemorrhage or midline shift is seen. Moderate diffuse cerebral atrophy with old large left-sided infarct noted.
[2020-12-29 17:17] LABS: Appearance,Urine Cloudy (Clear); Bacteria,Urine Moderate /hpf; Bilirubin,Urine Negative (Negative); Blood,Urine Small (Negative); Color,Urine Light Yellow; Glucose,Urine (UA) Negative (Negative); Ketones,Urine 1+ (Negative); Leukocyte Esterase,Urine Large (Negative); Mucus,Urine Occasional /hpf; Nitrite,Urine Positive (Negative); PH, Urine 6.5 (5.0-8.0); Protein,Urine 1+ (Negative); RBC,Urine 31 /hpf (0-5); Squamous Epithelial Cell,Urine 1 /hpf (0-4); Urobilinogen,Urine <2.0 mg/dL (<2.0); WBC,Urine >182 /hpf (0-5)
[2020-12-29] MEDS ORDERED: NALOXONE 0.4 MG/ML 1 ML VIAL IV PRN (17:53)
[2020-12-29] MEDS: SODIUM CHLORIDE 0.9% 1,000 ML IV SCH (18:19)
[2020-12-29] MEDS ORDERED: lisinopriL 10 MG TAB PO SCH (23:00)
[2020-12-29] MEDS ORDERED: ATORVASTATIN 20 MG TAB PO SCH (23:00)
[2020-12-30] MEDS: risperiDONE 0.25 MG TAB PO SCH ×4 (02:01→19:55)
[2020-12-30] MEDS: SODIUM CHLORIDE 0.9% 1,000 ML IV SCH ×2 (07:56→19:56)
[2020-12-30 08:05] LABS: Glucose,Whole Blood 37 mg/dL (75-99)
[2020-12-30 08:17] LABS: Glucose,Whole Blood 49 mg/dL (75-99)
[2020-12-30 08:33] LABS: Glucose,Whole Blood 70 mg/dL (75-99)
[2020-12-30 08:52] LABS: Glucose,Whole Blood 96 mg/dL (75-99)
[2020-12-30 10:40] LABS: Glucose,Whole Blood 88 mg/dL (75-99)
[2020-12-30] MEDS ORDERED: MELATONIN 3 MG TABLET PO PRN (10:44)
[2020-12-30] MEDS ORDERED: MAG HYDROX/AL HYDROX/SIMETH 30 ML CUP PO PRN (10:44)
[2020-12-30] MEDS ORDERED: ACETAMINOPHEN TAB 325 MG TAB PO PRN (10:44)
[2020-12-30] MEDS: AMPICILLIN-SULBACTAM 3 GM in SODIUM CHLORIDE 0.9% 100 ML IVPB SCH ×2 (11:22→19:54)
--- NOTE | 2020-12-30 11:53 | P.HPIM ---
History of Present Illness Patient presents in 35-year-old male came in with the complaint of altered mental status and unable to get any kind of history from the patient. Patient to his chronically dilatated mostly bedbound and with advanced dementia. I do not know his baseline patient is unable to provide any history to me patient is drowsy and sleepy. Patient is on multiple medications that can do that patient is on following medications that can cause severe encephalopathy that includes risperidone, mirtazapine, Imodium, lorazepam, gabapentin, Depakote. Patient also found to have abnormal urine with leukocytosis doesn't have any fever. Patient the was started on Rocephin patient urine cultures from a month of October are positive for enterococcus because of which I'm starting him on Unasyn. Patient will be continued on IV fluids. REVIEW OF SYSTEMS: Unable to obtain due to his clinical condition PHYSICAL EXAMINATION: GENERAL: Patient is drowsy unable to obtain any history from the patient, not in any acute distress. Well developed, well nourished. HEENT: Pupils are round and equally reacting to light. EOMI. No scleral icterus. No conjunctival pallor. Normocephalic, atraumatic. No pharyngeal erythema. No thyromegaly. CARDIOVASCULAR: S1 and S2 present. No murmurs, rubs, or gallops. PULMONARY: Limited unable to assess ABDOMEN: Soft, nontender, nondistended, normoactive bowel sounds. No palpable organomegaly. MUSCULOSKELETAL: No joint swelling or deformity. EXTREMITIES: No cyanosis, clubbing, or pedal edema. NEUROLOGICAL: Unable to assess SKIN: No rashes. Assessment and plan -Delirium, toxic encephalopathy mostly secondary to medications and cannot completely rule out a urinary tract infection urine is significantly abnormal awaiting urine cultures patient will be started on Unasyn as mentioned above. There may be a competent of metabolic as a flutter from hyperglycemia as well. Patient's gabapentin will be held, will discontinue Imodium, discontinue Ativan, hold off on morning Risperdal -Glycemic a: Cut down the long-acting insulin hold off on metformin. Although metformin doesn't cause hypoglycemia pre-meal insulin will be discontinued. -Possible urinary tract infection -dementia possibility of vascular dementia, advanced -hyperlipidemia -Hypertension -Benign prostatic hypertrophy DVT prophylaxis: Lovenox Past Medical History Past Medical History: CVA/TIA, Dementia, Diabetes Mellitus, Hyperlipidemia, Hypertension, Prostate Disorder Additional Past Medical History / Comment(s): Benign prostatcc hyperplasia with lower urinary tract symptoms. Aphasia (6 word vocabulary), hemiplegia/hemiparesis R dominant side. Anemia. Insomnia History of Any Multi-Drug Resistant Organisms: None Reported Additional Past Surgical History / Comment(s): unknown Past Anesthesia/Blood Transfusion Reactions: No Reported Reaction Past Psychological History: Anxiety Smoking Status: Never smoker Past Alcohol Use History: None Reported Past Drug Use History: None Reported Medications and Allergies Home Medications Medication Instructions Recorded Confirmed Type Atorvastatin Calcium [Lipitor] 20 mg PO HS@199910/20/20 12/29/20 History Lisinopril [Zestril] 10 mg PO DAILY 10/20/20 12/29/20 History Loperamide [Imodium] 2 mg PO Q2H PRN 10/20/20 12/29/20 History Mag Hydrox/Aluminum Hyd/Simeth 30 ml PO Q6H PRN 10/20/20 12/29/20 History [Mylanta Maximum Strength Liq] metFORMIN HCL [Glucophage] 1,000 mg PO BID 10/20/20 12/29/20 History Health Shake 1 can PO BID@0700,1600 11/05/20 12/29/20 History Acetaminophen [Tylenol 8 Hour] 650 mg PO Q6H PRN 12/29/20 12/29/20 History Divalproex Sodium [Depakote] 375 mg PO BID 12/29/20 12/29/20 History Gabapentin [Neurontin] 100 mg PO DAILY 12/29/20 12/29/20 History Gabapentin [Neurontin] 200 mg PO HS@199912/29/20 12/29/20 History Insulin Glargine [Lantus Vial] 48 unit SQ DAILY@0700 12/29/20 12/29/20 History Insulin Regular [HumuLIN R] See Protocol SQ AC-BID 12/29/20 12/29/20 History LORazepam [Ativan] 0.5 mg PO Q8H PRN 12/29/20 12/29/20 History Melatonin 3 mg PO HS@199912/29/20 12/29/20 History Mirtazapine 7.5 mg PO HS@199912/29/20 12/29/20 History risperiDONE [RisperDAL] 0.25 mg PO DAILY 12/29/20 12/29/20 History risperiDONE [RisperDAL] 0.75 mg PO HS@199912/29/20 12/29/20 History Allergies Allergy/AdvReac Type Severity Reaction Status Date / Time latex Allergy Unknown Verified 12/29/20 16:18 Physical Exam Vitals: Vital Signs Temp Pulse Pulse Resp BP BP Pulse Ox 12/30/20 11:13 98.2 F 71 16 144/81 99 12/30/20 08:00 16 12/30/20 04:59 98.6 F 77 16 143/96 99 12/29/20 21:08 18 12/29/20 20:00 99.1 F 89 116 H 16 154/80 173/72 95 12/29/20 17:00 98.5 F 87 18 145/82 99 12/29/20 16:00 98.3 F 89 18 144/88 99 12/29/20 15:21 98.5 F 88 18 128/55 99 Intake and Output 12/29/20 12/30/20 12/30/20 22:59 06:59 14:59 Intake Total 400 Output Total 1100 Balance -1100 400 Intake: Oral 400 Output: Urine 1100 Other: Voiding Method Indwelling Catheter Indwelling Catheter Weight 86.183 kg Results CBC & Chem 7: 12/29/20 15:51 12/29/20 15:51 Labs: Abnormal Lab Results - Last 24 Hours (Table) 12/29/20 12/29/20 12/29/20 Range/Units 15:51 15:51 15:51 WBC 16.5 H (3.8-10.6) k/uL RBC 3.75 L (4.30-5.90) m/uL Hgb 11.0 L (13.0-17.5) gm/dL Hct 34.9 L (39.0-53.0) % Neutrophils # 12.6 H (1.3-7.7) k/uL Monocytes # 1.2 H (0-1.0) k/uL BUN 22 H (9-20) mg/dL Glucose 176 H (74-99) mg/dL POC Glucose (mg/dL) (75-99) mg/dL Urine Protein 1+ H (Negative) Urine Ketones 1+ H (Negative) Urine Blood Small H (Negative) Ur Leukocyte Esterase Large H (Negative) Urine RBC 31 H (0-5) /hpf Urine WBC >182 H (0-5) /hpf Urine WBC Clumps Many H (None) /hpf Urine Bacteria Moderate H (None) /hpf Urine Mucus Occasional H (None) /hpf 12/30/20 12/30/20 12/30/20 Range/Units 08:04 08:16 08:31 WBC (3.8-10.6) k/uL RBC (4.30-5.90) m/uL Hgb (13.0-17.5) gm/dL Hct (39.0-53.0) % Neutrophils # (1.3-7.7) k/uL Monocytes # (0-1.0) k/uL BUN (9-20) mg/dL Glucose (74-99) mg/dL POC Glucose (mg/dL) 37 L 49 L 70 L (75-99) mg/dL Urine Protein (Negative) Urine Ketones (Negative) Urine Blood (Negative) Ur Leukocyte Esterase (Negative) Urine RBC (0-5) /hpf Urine WBC (0-5) /hpf Urine WBC Clumps (None) /hpf Urine Bacteria (None) /hpf Urine Mucus (None) /hpf Microbiology - Last 24 Hours (Table) 12/29/20 15:51 Urine Culture - Preliminary Urine,Voided Thrombosis Risk Factor Assmnt - Choose All That Apply Each Factor Represents 1 point: Obesity (BMI >25) Each Risk Factor Represents 3 Points: Age 75 years or older Thrombosis Risk Factor Assessment Total Risk Factor Score: 4 Thrombosis Risk Factor Assessment Level: Moderate Risk
[2020-12-30 12:08] LABS: Glucose,Whole Blood 99 mg/dL (75-99)
--- NOTE | 2020-12-30 15:23 | EEG ---
ELECTROENCEPHALOGRAM REPORT DATE OF SERVICE: 12/30/2020 PREAMBLE: This is a 75-year-old male with syncope. Patient has a history of CVA, rule out seizure. EEG FINDINGS: This is a 21-channel routine EEG recording in a patient utilizing 10/20 international system with referential and bipolar montages. Background consists of poorly developed and regulated diffuse slowing in low amplitude mixed delta and theta activity seen in bihemispheric region. Background does not seem to be reactive to eye opening or closing. Different stages of sleep were not seen. Photic stimulation was not performed. No focal or generalized epileptiform activity was seen. IMPRESSION: This is an abnormal EEG due to background slowing of a moderate to severe degree. This is suggestive of generalized cerebral dysfunction as can be seen with toxic metabolic encephalopathy or due to diffuse structural brain abnormality. No epileptiform activity was seen. MMSUBHASH / SAAD: [id number] /
[2020-12-30 16:57] LABS: Glucose,Whole Blood 90 mg/dL (75-99)
[2020-12-30] MEDS: MIRTAZAPINE 15 MG TAB PO SCH (19:54)
[2020-12-30] MEDS: ATORVASTATIN 20 MG TAB PO SCH (19:55)
[2020-12-30] MEDS: DIVALPROEX SPRINKLE 125 MG CAP.SPRINK PO SCH (19:55)
[2020-12-30] MEDS ORDERED: GABAPENTIN 100 MG CAP PO SCH (20:00)
[2020-12-30 20:09] LABS: Glucose,Whole Blood 268 mg/dL (75-99)
[2020-12-30] MEDS ORDERED: HALOPERIDOL LACTATE 5 MG/ML 1 ML VIAL IM PRN (21:59)
[2020-12-31] MEDS: AMPICILLIN-SULBACTAM 3 GM in SODIUM CHLORIDE 0.9% 100 ML IVPB SCH ×3 (04:05→21:05)
[2020-12-31 04:09] LABS: Glucose,Whole Blood 198 mg/dL (75-99)
[2020-12-31 07:12] LABS: Glucose,Whole Blood 152 mg/dL (75-99)
[2020-12-31] MEDS: SODIUM CHLORIDE 0.9% 1,000 ML IV SCH (08:17)
[2020-12-31] MEDS: lisinopriL 10 MG TAB PO SCH (08:22)
[2020-12-31] MEDS: risperiDONE 0.25 MG TAB PO SCH ×2 (08:22→21:06)
[2020-12-31] MEDS: DIVALPROEX SPRINKLE 125 MG CAP.SPRINK PO SCH ×2 (08:22→21:07)
[2020-12-31] MEDS: INSULIN DETEMIR (LEVEMIR) 100 UNIT/ML SYR SQ SCH ×2 (08:46→11:58)
[2020-12-31] MEDS ORDERED: GABAPENTIN 100 MG CAP PO SCH (09:00)
[2020-12-31 11:49] LABS: Glucose,Whole Blood 286 mg/dL (75-99)
[2020-12-31 13:20] LABS: African American GFR (CKD) 89 (>60 ml/min/1.73 sqM); Anion Gap 6 mmol/L; Blood Urea Nitrogen 17 mg/dL (9-20); Calcium 8.3 mg/dL (8.4-10.2); Carbon Dioxide 25 mmol/L (22-30); Chloride 106 mmol/L (98-107); Glucose 244 mg/dL (74-99); Non-African American GFR(CKD) 77 (>60 ml/min/1.73 sqM); Potassium 4.4 mmol/L (3.5-5.1); Sodium 137 mmol/L (137-145)
[2020-12-31 13:36] LABS: Basophils # (A) 0.1 k/uL (0-0.2); Basophils % (A) 1 %; Eosinophils # (A) 0.8 k/uL (0-0.7); Eosinophils % (A) 8 %; Lymphocytes # (A) 1.6 k/uL (1.0-4.8); Lymphocytes % (A) 17 %; MCH 30.3 pg (25.0-35.0); Mean Platelet Volume 7.4; Monocytes # (A) 0.7 k/uL (0-1.0); Monocytes % (A) 7 %; Neutrophils # (A) 6.2 k/uL (1.3-7.7); Neutrophils % (A) 65 %; Platelet Count 233 k/uL (150-450); RBC 3.15 m/uL (4.30-5.90); RDW 12.8 % (11.5-15.5); WBC 9.5 k/uL (3.8-10.6)
[2020-12-31 13:39] LABS: HGB 9.5 gm/dL (13.0-17.5)
[2020-12-31 17:19] LABS: Glucose,Whole Blood 216 mg/dL (75-99)
[2020-12-31 20:05] LABS: Glucose,Whole Blood 229 mg/dL (75-99)
[2020-12-31] MEDS: MIRTAZAPINE 15 MG TAB PO SCH (21:06)
[2020-12-31] MEDS: ATORVASTATIN 20 MG TAB PO SCH (21:06)
[2020-12-31] MEDS: LORazepam 2 MG/ML INJ IV PRN (21:07)
--- NOTE | 2020-12-31 21:07 | P.PN ---
Subjective Progress Note Date: 12/31/20 Patient presents in 35-year-old male came in with the complaint of altered mental status and unable to get any kind of history from the patient. Patient to his chronically dilatated mostly bedbound and with advanced dementia. I do not know his baseline patient is unable to provide any history to me patient is drowsy and sleepy. Patient is on multiple medications that can do that patient is on following medications that can cause severe encephalopathy that includes risperidone, mirtazapine, Imodium, lorazepam, gabapentin, Depakote. Patient also found to have abnormal urine with leukocytosis doesn't have any fever. Patient the was started on Rocephin patient urine cultures from a month of October are positive for enterococcus because of which I'm starting him on Unasyn. Patient will be continued on IV fluids. On 12/31/2020 This is a pleasant 75-year-old male, he is alert and oriented 1. He does have a history of dementia. He has been residing at [facility] where he fell, patient has a laceration above his left eye as well as a 1 inch diameter skin tear was total skin loss on his right elbow. Local wound care. Patient reports generalized pain, he also reports abdominal pain. He does have a suprapubic catheter and is unsure when this is unchanged last. Urine appears clear and yellow. Urine culture is positive for gram-negative bacilli, pending finalized results. Patient remains on IV Unasyn. Per RN at bedside patient is much improved and his mentation during the day however he is quite agitated and is up a lot throughout the evening. Patient does not answer any review of system questions difficult to obtain. He is getting Haldol IM every 6 hours for agitation. Labs are currently pending from today, vital signs are stable, 97.9 temp, heart rate 57 sinus radha, 116/68, 98% on room air. Tylenol as needed for pain management. Patient had an EEG completed that was abnormal to suggest generalized cervical dysfunction as can be seen with toxic metabolic encephalopathy. No epileptiform activity was seen. CT brain and C-spine without contrast was negative for acute fracture or dislocation evident in the cervical spine. There is no acute intracranial hemorrhage or midline shift. 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 Chest x-ray showed probable basilar atelectasis. REVIEW OF SYSTEMS: Unable to obtain due to his clinical condition PHYSICAL EXAMINATION: GENERAL: Patient is drowsy unable to obtain any history from the patient, not in any acute distress. Well developed, well nourished. HEENT: Pupils are round and equally reacting to light. EOMI. No scleral icterus. No conjunctival pallor. Normocephalic, atraumatic. No pharyngeal erythema. No thyromegaly. CARDIOVASCULAR: S1 and S2 present. No murmurs, rubs, or gallops. PULMONARY: Limited unable to assess ABDOMEN: Soft, nontender, nondistended, normoactive bowel sounds. No palpable organomegaly. Suprapubic catheter present, site intact, no drainage noted min imal erythema. MUSCULOSKELETAL: No joint swelling or deformity. EXTREMITIES: No cyanosis, clubbing, or pedal edema. NEUROLOGICAL: Unable to assess SKIN: No rashes. Assessment and plan -Delirium, toxic encephalopathy mostly secondary to medications. There may be a competent of metabolic as a flutter from hyperglycemia as well. Patient's gabapentin will be held, will discontinue Imodium, discontinue Ativan, hold off on morning Risperdal -UTI with positive urine cultures, present on admission, patient is on IV Unasyn will cultures are finalized. Patient has a suprapubic catheter in place, please find out when this was changed last -Diabetes mellitus type 2 with hypoglycemia: Cut down the long-acting insulin hold off on metformin. Although metformin doesn't cause hypoglycemia pre-meal i nsulin will be discontinued, patient now with hyperglycemia. -dementia possibility of vascular dementia, advanced -hyperlipidemia -Hypertension -Benign prostatic hypertrophy -Anemia; history of - hgb 9.4; repeat tomorrow -Leukocytosis, related to UTI- resolved, current level 9.5 Plan: Repeat labs, awaiting finalized blood cultures. Cont to monitor blood sugar, will add s/s for coverage. Objective - Vital Signs Vital signs: Vital Signs Temp 97.7 F 12/31/20 11:11 Pulse 57 L 12/31/20 11:11 Resp 16 12/31/20 11:11 BP 116/68 12/31/20 11:11 Pulse Ox 98 12/31/20 11:11 Intake & Output 12/30/20 12/31/20 12/31/20 18:59 06:59 18:59 Intake Total 1300 400 Output Total 925 1900 300 Balance 375 -1500 -300 Intake: IV 900 Sodium Chloride 0.9% 1, 900 000 ml @ 75 mls/hr IV . [id number] [facility] Rx#:[id number] Intake, IV Titration 400 Amount Ampicillin-Sulbactam 3 gm 100 In Sodium Chloride 0.9% 100 ml @ 200 mls/hr IVPB Q8H [facility] Rx#:[id number] Sodium Chloride 0.9% 1, 300 000 ml @ 75 mls/hr IV . [id number] [facility] Rx#:[id number] Oral 400 Output: Urine 925 1900 300 Other: Voiding Method Indwelling Catheter Indwelling Catheter Indwelling Catheter - Labs CBC & Chem 7: 12/31/20 12:46 12/31/20 12:46 Labs: Abnormal Lab Results - Last 24 Hours (Table) 12/30/20 12/31/20 12/31/20 Range/Units 20:08 04:07 07:06 POC Glucose (mg/dL) 268 H 198 H 152 H (75-99) mg/dL 12/31/20 Range/Units 11:42 POC Glucose (mg/dL) 286 H (75-99) mg/dL Microbiology - Last 24 Hours (Table) 12/29/20 15:51 Urine Culture - Preliminary Urine,Voided Gram Neg Bacilli
[2021-01-01] MEDS: SODIUM CHLORIDE 0.9% 1,000 ML IV SCH ×3 (00:23→11:06)
[2021-01-01] MEDS: AMPICILLIN-SULBACTAM 3 GM in SODIUM CHLORIDE 0.9% 100 ML IVPB SCH ×3 (04:26→22:01)
[2021-01-01 06:43] LABS: Basophils % (A) 0 %; Eosinophils # (A) 0.6 k/uL (0-0.7); Eosinophils % (A) 6 %; HCT 31.3 % (39.0-53.0); HGB 9.8 gm/dL (13.0-17.5); Lymphocytes % (A) 18 %; MCH 28.9 pg (25.0-35.0); MCHC 31.3 g/dL (31.0-37.0); MCV 92.5 fL (80.0-100.0); Mean Platelet Volume 7.4; Monocytes # (A) 0.8 k/uL (0-1.0); Monocytes % (A) 7 %; Neutrophils # (A) 7.4 k/uL (1.3-7.7); Neutrophils % (A) 67 %; Platelet Count 260 k/uL (150-450); RBC 3.38 m/uL (4.30-5.90); RDW 12.6 % (11.5-15.5); WBC 11.1 k/uL (3.8-10.6)
[2021-01-01 07:37] LABS: Glucose,Whole Blood 188 mg/dL (75-99)
[2021-01-01] MEDS: lisinopriL 10 MG TAB PO SCH (08:06)
[2021-01-01] MEDS: INSULIN DETEMIR (LEVEMIR) 100 UNIT/ML SYR SQ SCH (08:06)
[2021-01-01] MEDS: DIVALPROEX SPRINKLE 125 MG CAP.SPRINK PO SCH ×2 (08:07→22:03)
[2021-01-01] MEDS: INSULIN ASPART (NovoLOG) 100 UNIT/ML VIAL SQ SCH ×4 (08:07→22:03)
[2021-01-01] MEDS: risperiDONE 0.25 MG TAB PO SCH ×2 (08:08→22:03)
[2021-01-01] MEDS: LORazepam 2 MG/ML INJ IV PRN (08:37)
[2021-01-01 11:29] LABS: Glucose,Whole Blood 229 mg/dL (75-99)
[2021-01-01 15:56] LABS: African American GFR (CKD) 67.7 (60.0-200.0); BUN/Creat Ratio 17.5 Ratio (12.00-20.00); Non-African American GFR(CKD) 58.4 (60.0-200.0); Potassium 4.4 mmol/L (3.5-5.5)
[2021-01-01 17:39] LABS: Glucose,Whole Blood 246 mg/dL (75-99)
--- NOTE | 2021-01-01 18:09 | PN ---
PROGRESS NOTE DATE OF SERVICE: 01/01/2021 This 75-year-old gentleman who was admitted with change in mental status also thought to have delirium. The patient has a UTI with positive blood cultures also. The urine culture showed Klebsiella and as well as gram-negative bacilli. Blood cultures are not available at this time. The white count is 11.1. Patient is being closely monitored. PAST MEDICAL HISTORY: Reviewed. REVIEW OF SYSTEMS: Could not be taken, the patient is confused. CURRENT MEDICATIONS: Reviewed include Tylenol, Maalox, Unasyn, NovoLog, Zestril, melatonin, Remeron, Risperdal. PHYSICAL EXAMINATION: Patient is alert and oriented, times x1. Pulse 79, blood pressure 119/70, respiration 18, temperature is 98.8, pulse ox 97% on room air. HEENT: Conjunctivae normal. Oral mucosa moist. NECK: No jugular venous distention. No lymph node enlargement. CARDIOVASCULAR: S1, S2, muffled. No S3, no S4, RESPIRATORY: Diminished breath sounds at the bases. A few scattered rhonchi. ABDOMEN: Soft, nontender. NERVOUS SYSTEM: Diffusely weak. LAB STUDIES: WBC 11, hemoglobin 9.8. ASSESSMENT: 1. Acute urinary tract infection with sepsis, present on admission with Klebsiella oxytoca and gram-negative bacilli. Final ID is pending. 2. Acute delirium. 3. Diabetes mellitus type 2. 4. Dementia. 5. Hyperlipidemia. 6. Hypertension. 7. History of benign prostatic hypertrophy. 8. Anemia. 9. Increased WBC. 10.Anemia. 11.Hypocalcemia. RECOMMENDATIONS AND DISCUSSION: In this 75-year-old gentleman who presented with multiple complex medical issues, we will monitor the patient closely, continue the current management and symptomatic treatment. Monitor blood sugars closely. The patient is currently on IV Unasyn. We will continue the antibiotics. Monitor blood sugars closely. DVT prophylaxis. Prognosis guarded because of multiple complex medical issues. Further recommendations to follow. MMODL / IJN: [id number] /
[2021-01-01 20:17] LABS: Glucose,Whole Blood 233 mg/dL (75-99)
[2021-01-01] MEDS: ATORVASTATIN 20 MG TAB PO SCH (22:02)
[2021-01-01] MEDS: MIRTAZAPINE 15 MG TAB PO SCH (22:03)
[2021-01-02] MEDS: SODIUM CHLORIDE 0.9% 1,000 ML IV SCH ×2 (00:48→13:15)
[2021-01-02] MEDS: AMPICILLIN-SULBACTAM 3 GM in SODIUM CHLORIDE 0.9% 100 ML IVPB SCH ×2 (04:48→13:14)
[2021-01-02 07:44] LABS: Glucose,Whole Blood 186 mg/dL (75-99)
[2021-01-02 07:49] LABS: Basophils % (A) 0 %; Eosinophils # (A) 0.6 k/uL (0-0.7); Eosinophils % (A) 5 %; HCT 31.5 % (39.0-53.0); HGB 10.3 gm/dL (13.0-17.5); Lymphocytes % (A) 17 %; MCH 29.5 pg (25.0-35.0); MCHC 32.7 g/dL (31.0-37.0); MCV 90.3 fL (80.0-100.0); Mean Platelet Volume 7.2; Monocytes # (A) 0.7 k/uL (0-1.0); Monocytes % (A) 6 %; Neutrophils # (A) 8.1 k/uL (1.3-7.7); Neutrophils % (A) 69 %; Platelet Count 276 k/uL (150-450); RBC 3.49 m/uL (4.30-5.90); RDW 12.6 % (11.5-15.5); WBC 11.7 k/uL (3.8-10.6)
[2021-01-02] MEDS: MULTIVITAMINS, THERA 1 EACH TAB PO SCH (08:19)
[2021-01-02] MEDS: INSULIN DETEMIR (LEVEMIR) 100 UNIT/ML SYR SQ SCH (08:19)
[2021-01-02] MEDS: DIVALPROEX SPRINKLE 125 MG CAP.SPRINK PO SCH ×2 (08:19→19:48)
[2021-01-02] MEDS: lisinopriL 10 MG TAB PO SCH (08:19)
[2021-01-02] MEDS: INSULIN ASPART (NovoLOG) 100 UNIT/ML VIAL SQ SCH ×4 (08:19→21:54)
[2021-01-02] MEDS: risperiDONE 0.25 MG TAB PO SCH ×2 (08:20→19:48)
[2021-01-02 12:03] LABS: Glucose,Whole Blood 173 mg/dL (75-99)
[2021-01-02 12:53] LABS: African American GFR (CKD) 84.4 (60.0-200.0); Anion Gap 3.9 mmol/L (4.00-12.00); Calcium 8.2 mg/dL (8.7-10.3); Carbon Dioxide 26.1 mmol/L (21.6-31.8); Non-African American GFR(CKD) 72.8 (60.0-200.0)
[2021-01-02 16:54] LABS: Glucose,Whole Blood 135 mg/dL (75-99)
[2021-01-02] MEDS: PIPERACILLIN-TAZOBACTAM 3.375 GM in SODIUM CHLORIDE 0.9% 100 ML IVPB SCH ×2 (17:48→23:27)
[2021-01-02] MEDS: ATORVASTATIN 20 MG TAB PO SCH (19:48)
[2021-01-02] MEDS: MIRTAZAPINE 15 MG TAB PO SCH (19:49)
--- NOTE | 2021-01-02 20:17 | PN ---
PROGRESS NOTE DATE OF SERVICE: 01/02/2021 This 75-year-old gentleman who was admitted with acute UTI with sepsis also had Klebsiella oxytoca and Proteus mirabilis. Currently the patient is on Unasyn, Proteus is intermediate susceptibility. No chest pain. No palpitations. No fever. EXAM: Alert and oriented x3. Pulse is 62, blood pressure 120/75, respiration 18, temperature 98.2, pulse ox 97% on room air. HEENT: Conjunctivae normal. Neck no JVD. Cardiovascular: S1, S2. Respiration: Breath sounds diminished in the bases. A few scattered rhonchi. Abdomen: Soft. Nervous system: No focal deficits. LABS: Accu-Cheks 186. WBC 11.2, hemoglobin 10.3. ASSESSMENT: 1. Acute urinary tract infection with sepsis present on admission with Klebsiella oxytoca and as well as resistant Proteus mirabilis. 2. Acute delirium. 3. Diabetes mellitus type 2. 4. Dementia. 5. Hyperlipidemia. 6. Hypertension. 7. History of benign prostatic hypertrophy. 8. Anemia. 9. Increased WBC. 10.Hypocalcemia. RECOMMENDATIONS AND DISCUSSION: I recommend to continue current medications, management and symptomatic treatment. We will change the antibiotics to Zosyn. Guarded prognosis. Further recommendations to follow. MMODL / IJN: [id number] /
[2021-01-02 20:21] LABS: Glucose,Whole Blood 343 mg/dL (75-99)
[2021-01-03 05:02] VITALS: RESP 16
[2021-01-03 07:05] LABS: Glucose,Whole Blood 123 mg/dL (75-99)
[2021-01-03] MEDS: INSULIN ASPART (NovoLOG) 100 UNIT/ML VIAL SQ SCH ×2 (07:36→13:30)
[2021-01-03] MEDS: INSULIN DETEMIR (LEVEMIR) 100 UNIT/ML SYR SQ SCH ×2 (09:22→12:21)
[2021-01-03] MEDS: PIPERACILLIN-TAZOBACTAM 3.375 GM in SODIUM CHLORIDE 0.9% 100 ML IVPB SCH (09:23)
[2021-01-03] MEDS: risperiDONE 0.25 MG TAB PO SCH (09:24)
[2021-01-03] MEDS: MULTIVITAMINS, THERA 1 EACH TAB PO SCH (09:24)
[2021-01-03] MEDS: lisinopriL 10 MG TAB PO SCH (09:24)
[2021-01-03] MEDS: DIVALPROEX SPRINKLE 125 MG CAP.SPRINK PO SCH (09:24)
[2021-01-03 10:37] LABS: African American GFR (CKD) 74 (>60 ml/min/1.73 sqM); Anion Gap 9 mmol/L; Blood Urea Nitrogen 19 mg/dL (9-20); Calcium 9.1 mg/dL (8.4-10.2); Carbon Dioxide 24 mmol/L (22-30); Chloride 106 mmol/L (98-107); Glucose 161 mg/dL (74-99); Non-African American GFR(CKD) 64 (>60 ml/min/1.73 sqM); Potassium 4.6 mmol/L (3.5-5.1); Sodium 139 mmol/L (137-145)
[2021-01-03 11:52] VITALS: BP 125/70; PULSE 72; TEMP 98
[2021-01-03 12:06] LABS: Glucose,Whole Blood 272 mg/dL (75-99)
[2021-01-03 12:14] LABS: Basophils % (A) 0 %; Eosinophils # (A) 0.8 k/uL (0-0.7); Eosinophils % (A) 8 %; HCT 34.1 % (39.0-53.0); Lymphocytes # (A) 2.5 k/uL (1.0-4.8); Lymphocytes % (A) 23 %; MCH 30.2 pg (25.0-35.0); MCHC 32.1 g/dL (31.0-37.0); MCV 93.9 fL (80.0-100.0); Mean Platelet Volume 9.5; Monocytes # (A) 0.8 k/uL (0-1.0); Monocytes % (A) 8 %; Neutrophils # (A) 6.5 k/uL (1.3-7.7); Neutrophils % (A) 60 %; Platelet Count 198 k/uL (150-450); RBC 3.64 m/uL (4.30-5.90); RDW 12.7 % (11.5-15.5); WBC 10.9 k/uL (3.8-10.6)
--- NOTE | 2021-01-03 14:44 | P.DS ---
Providers Date of admission: 12/29/20 17:53 Attending physician: Luis Wise [facility] Course: Final diagnoses Acute UTI with sepsis present on admission, with Klebsiella oxytoca and as well as resistant Proteus mirabilis, completely antibiotic therapy with oral Ceftin Acute delirium mostly related to UTI Diabetes mellitus type 2 with hypoglycemia on admission Dementia, at baseline Hyperlipidemia Hypertension History of benign prostatic hypertrophy Anemia Leukocytosis, related to infection improving Hypocalcemia Discharge disposition Patient is alert 1, he is at baseline. He has improved drastically with ant ibiotics, he will complete a 5 day therapy of oral Ceftin on discharge. Due to patient's hypoglycemia on admission his oral hypoglycemic agent has been discontinued, we have made adjustments to his Lantus. His vital signs have remained stable. Patient has been up and appropriate, able to feed himself meals. [facility]. Hospital course This is a pleasant 75-year-old male who came in with a complaint altered mental status was able to get any History from the patient. 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 Patient is chronically debilitated mostly bedbound with advanced dementia. Patient is on multiple medications that can cause severe encephalopathy and that includes ri speridone, mirtazapine, Imodium, lorazepam, gabapentin and Depakote. Patient was also found to have normal urine with leukocytosis. Urine culture was positive for Proteus mirabilis which was resistant to multiple drugs as well as Klebsiella oxytoca. Patient was initially started on IV Rocephin, was changed to IV Zosyn. Patient will complete a five-day course of oral Ceftin on discharge. Patient does have a previous history of significant stroke that has resulted in right-sided paralysis. Patient does have contractures to the right arm. Patient had a CT brain and C-spine without contrast that showed no acute fracture or dislocation evident in the cervical spine. There is no acute intracranial hemorrhage or midline shift seen. There is moderate diffuse renal atrophy with large old left-sided infarct noted. Leukocytosis on admission, white blood cell count 16.5, today it is 10.9. Hemoglobin has remained stable at 11. Patient initially presented with some hypoglycemia, blood sugar was found to be 37, medications were adjusted. Patient is having sinus rhythm in the 70s, blood pressure 125/70. Patient is 96% on room air. Patient's mentation has significantly improved although he is alert 1 and says minimal words. Patient was able to communicate that he is not having any pain or discomfort and he is feeling better. Patient does have a history of a super pubic catheter, site looks intact, minimal erythema, no drainage noted. Urine looks clear and yellow. Patient is cleared for discharge back to [facility]. 01/03/2021 Patient is evaluated today's bedside he is resting in bed. He denies any current pain. Superpubic catheter is in place, urine is clear and yellow. Lungs are clear to auscultation, S1-S2 auscultated. Patient does have a healing wound over his left eyebrow, Steri-Strips are in place. It looks like it is healing appropriately. Patient is a spot of ANTIBIOTIC therapy, leukocytosis is improving down to 10.9. Patient is afebrile, 98 temp, heart rate 72 sinus rhythm, blood pressure 125/70, 96% on room air. Sodium is 135, potassium 4, BUN 16, creatinine 1 today. Neurological exam shows no new deficits today, patient appears to be at baseline. Patient currently discharged back to [facility] today on course of oral Ceftin. Please see medication reconciliation for list of current medications. Thank you for allowing us to participate in the care of this patient. Patient Condition at Discharge: Fair Plan - Discharge Summary Discharge Rx Participant: Yes New Discharge Prescriptions: New Cefuroxime Axetil [Ceftin] 500 mg PO BID 5 Days #10 tab Multivitamins, Thera [Multivitamin (formulary)] 1 each PO DAILY@1200 tab Continue Atorvastatin Calcium [Lipitor] 20 mg PO HS@2000 Health Shake 1 can PO BID@0700,1600 Melatonin 3 mg PO HS@2000 Acetaminophen [Tylenol 8 Hour] 650 mg PO Q6H PRN PRN Reason: Pain Mag Hydrox/Aluminum Hyd/Simeth [Mylanta Maximum Strength Liq] 30 ml PO Q6H PRN PRN Reason: Heartburn Lisinopril [Zestril] 10 mg PO DAILY risperiDONE [RisperDAL] 0.75 mg PO HS@2000 Mirtazapine 7.5 mg PO HS@2000 Insulin Regular [HumuLIN R] See Protocol SQ AC-BID Gabapentin [Neurontin] 100 mg PO DAILY Changed Insulin Glargine [Lantus Vial] 30 unit SQ DAILY@0700 #0 Discontinued Loperamide [Imodium] 2 mg PO Q2H PRN PRN Reason: Loose Stool risperiDONE [RisperDAL] 0.25 mg PO DAILY LORazepam [Ativan] 0.5 mg PO Q8H PRN PRN Reason: Anxiety metFORMIN HCL [Glucophage] 1,000 mg PO BID Gabapentin [Neurontin] 200 mg PO HS@1999 Divalproex Sodium [Depakote] 375 mg PO BID Discharge Medication List Atorvastatin Calcium [Lipitor] 20 mg PO HS@199910/20/20 [History] Lisinopril [Zestril] 10 mg PO DAILY 10/20/20 [History] Mag Hydrox/Aluminum Hyd/Simeth [Mylanta Maximum Strength Liq] 30 ml PO Q6H PRN 10/20/20 [History] Health Shake 1 can PO BID@0700,1600 11/05/20 [History] Acetaminophen [Tylenol 8 Hour] 650 mg PO Q6H PRN 12/29/20 [History] Gabapentin [Neurontin] 100 mg PO DAILY 12/29/20 [History] Insulin Regular [HumuLIN R] See Protocol SQ AC-BID 12/29/20 [History] Melatonin 3 mg PO HS@199912/29/20 [History] Mirtazapine 7.5 mg PO HS@199912/29/20 [History] risperiDONE [RisperDAL] 0.75 mg PO HS@199912/29/20 [History] Cefuroxime Axetil [Ceftin] 500 mg PO BID 5 Days #10 tab 01/03/21 [Rx] Insulin Glargine [Lantus Vial] 30 unit SQ DAILY@0700 #0 01/03/21 [Rx] Multivitamins, Thera [Multivitamin (formulary)] 1 each PO DAILY@1200 tab 01/03/21 [Rx] Follow up Appointment(s)/Referral(s): Antione Johnson MD [Primary Care Provider] - 1-2 days Ambulatory/Diagnostic Orders: Complete Blood Count w/diff [LAB.AMB] Time Frame: 3 Days, Location: None Selected Activity/Diet/Wound Care/Special Instructions: Complete 5 more days of Ceftin for UTI Follow-up with PCP Patient to return [facility] Discharge Disposition: TRANSFER TO SNF/ECF
== END 2021-01-03 15:40 | DRG 871 ==
LOC: EC 15:12 → 5NMEDONC 17:53
PROVIDERS: ADMIT Internal Medicine; ATTEND Internal Medicine
DX: A41.59 Other Gram-negative sepsis (principal); G92 Toxic encephalopathy; N39.0 Urinary tract infection, site not specified; I69.351 Hemiplegia and hemiparesis following cerebral infarction affecting right dominant side; D64.9 Anemia, unspecified; E11.649 Type 2 diabetes mellitus with hypoglycemia without coma; E78.5 Hyperlipidemia, unspecified; E83.51 Hypocalcemia; F03.90 Unspecified dementia, unspecified severity, without behavioral disturbance, psychotic disturbance, mood disturbance, and anxiety; F41.9 Anxiety disorder, unspecified; I10 Essential (primary) hypertension; I69.320 Aphasia following cerebral infarction; N40.0 Benign prostatic hyperplasia without lower urinary tract symptoms; S01.112A Laceration without foreign body of left eyelid and periocular area, initial encounter; Z20.822 Contact with and (suspected) exposure to COVID-19; W19.XXXA Unspecified fall, initial encounter; Y92.129 Unspecified place in nursing home as the place of occurrence of the external cause; Z79.4 Long term (current) use of insulin; Z79.899 Other long term (current) drug therapy; Z91.040 Latex allergy status; G47.00 Insomnia, unspecified; Z74.01 Bed confinement status; Z93.50 Unspecified cystostomy status
CPT/HCPCS: 36415; 70450; 71046; 72125; 80048; 80053; 81001; 83605; 85025; 85610; 85730; 87077; 87086; 87186; 87635; 93005; 95816; 96361; 96374; 99285

== ENCOUNTER 2021-04-06 22:05 | Inpatient (IN) | payer MEDICARE, BC, OTHER ==
[2021-04-06 22:15] LABS: Glucose,Whole Blood 228 mg/dL (75-99)
[2021-04-06 22:32] LABS: Basophils % (A) 0 %; Eosinophils # (A) 0.2 k/uL (0-0.7); Eosinophils % (A) 1 %; HGB 11.5 gm/dL (13.0-17.5); Lymphocytes # (A) 1.6 k/uL (1.0-4.8); Lymphocytes % (A) 13 %; MCH 28.2 pg (25.0-35.0); MCV 88.1 fL (80.0-100.0); Mean Platelet Volume 7.9; Monocytes # (A) 0.5 k/uL (0-1.0); Monocytes % (A) 4 %; Neutrophils # (A) 10.4 k/uL (1.3-7.7); Neutrophils % (A) 81 %; Platelet Count 264 k/uL (150-450); RBC 4.09 m/uL (4.30-5.90); RDW 13.1 % (11.5-15.5); WBC 12.9 k/uL (3.8-10.6)
--- NOTE | 2021-04-06 22:32 | ED ---
General Adult HPI - General Stated complaint: Possible Stroke Time Seen by Provider: 04/06/21 22:06 Source: patient, EMS Mode of arrival: EMS Limitations: altered mental status, physical limitation - History of Present Illness Initial comments: Newton Watts 76-year-old male with a history of left-sided stroke with residual right-sided paralysis and minimal verbal activity. [facility] Apparently the patient has had 2 falls today the first was early this morning he was observed throughout the day and had no change in mental status from his baseline. This evening he was found on the ground in his room after an unwitnessed fall he did have a bruise to the right side of his head. Since that time he's been less active than usual. EMS was called due to change in mental status. EMS reports that they found him slumped over in his wheelchair with his head between his knees, he was drooling. He did curse at them one time and is speech was quite slurred and since then he has been nonverbal. Per staff this is a big change from the patient's baseline. Apparently at baseline the patient is awake, is normal eye response, is contracted on the right with normal range of motion of the left, he can usually say his name answer yes and no questions and frequently says curse words. - Related Data Home Medications Medication Instructions Recorded Confirmed Atorvastatin Calcium [Lipitor] 20 mg PO HS 10/20/20 04/06/21 Lisinopril [Zestril] 10 mg PO HS 10/20/20 04/06/21 Mag Hydrox/Aluminum Hyd/Simeth 15 ml PO Q6H PRN 10/20/20 04/06/21 [Mylanta Maximum Strength Liq] Acetaminophen [Tylenol 8 Hour] 650 mg PO Q6H PRN 12/29/20 04/06/21 Gabapentin [Neurontin] 100 mg PO DAILY 12/29/20 04/06/21 Melatonin 3 mg PO HS 12/29/20 04/06/21 Mirtazapine 7.5 mg PO HS 12/29/20 04/06/21 INSULIN ASPART (NovoLOG) [NovoLOG 10 unit SQ AC-TID 04/06/21 04/06/21 (formulary)] INSULIN ASPART (NovoLOG) [NovoLOG See Protocol SQ ACHS 04/06/21 04/06/21 (formulary)] Insulin Detemir [Levemir Flextouch 30 units SQ DAILY 04/06/21 04/06/21 Pen] Multivitamins, Thera [Multivitamin 1 tab PO DAILY 04/06/21 04/06/21 (formulary)] Sudogest 10mg 10 mg PO BID 04/06/21 04/06/21 metFORMIN HCL 500 mg PO BID@0700,1600 04/06/21 04/06/21 risperiDONE [RisperDAL] 1.5 mg PO HS 04/06/21 04/06/21 Allergies Allergy/AdvReac Type Severity Reaction Status Date / Time latex Allergy Unknown Verified 04/06/21 22:44 Review of Systems ROS Statement: Those systems with pertinent positive or pertinent negative responses have been documented in the HPI. ROS Other: All systems not noted in ROS Statement are negative. Past Medical History Past Medical History: CVA/TIA, Dementia, Diabetes Mellitus, Hyperlipidemia, Hypertension, Prostate Disorder Additional Past Medical History / Comment(s): Benign prostatcc hyperplasia with lower urinary tract symptoms. Aphasia (6 word vocabulary), hemiplegia/hemiparesis R dominant side. Anemia. Insomnia History of Any Multi-Drug Resistant Organisms: None Reported Past Surgical History: No Surgical Hx Reported Additional Past Surgical History / Comment(s): unknown Past Anesthesia/Blood Transfusion Reactions: No Reported Reaction Past Psychological History: Anxiety Smoking Status: Never smoker Past Alcohol Use History: None Reported Past Drug Use History: None Reported General Exam Limitations: altered mental status, physical limitation Course Vital Signs 04/06/21 04/06/21 22:07 23:00 Temperature 98.3 F Pulse Rate 96 88 Respiratory 16 16 Rate Blood Pressure 153/80 109/61 O2 Sat by Pulse 98 97 Oximetry EKG Findings - EKG Comments: EKG Findings:: EKG was obtained as part trauma and stroke workup, EKG was obtained at 2210, rate is 96 rhythm is sinus normal axis, normal intervals, care 144 QRS 82 QTc [address] elevations or depressions no evidence of acute ischemia or infarction or arrhythmia. There is significant motion artifact noted. Medical Decision Making - Medical Decision Making She was seen and evaluated immediately upon arrival the emergency department, patient has altered mental symptoms after trauma there is concerned he could have a stroke versus traumatic injury. Physical exam does show abrasions on the bilateral knees as well as a hematoma right-sided head. Head CT was obtained and reveals old infarct no acute findings were noted. Labs were at baseline patient is somewhat dehydrated with elevated BUN and creatinine, gentle IV fluids were ordered. Chest x-ray suggestive of a possible left lower lobe pneumonia patient was treated with antibiotics. Given multiple medical comorbidities the change in the mental status we will admit to the patient for further observation a consult to neurology. - Lab Data Result diagrams: 04/06/21 22:25 04/06/21 22:25 Lab Results 04/06/21 04/06/21 04/06/21 Range/Units 22:13 22:25 22:25 WBC 12.9 H (3.8-10.6) k/uL RBC 4.09 L (4.30-5.90) m/uL Hgb 11.5 L (13.0-17.5) gm/dL Hct 36.0 L (39.0-53.0) % MCV 88.1 (80.0-100.0) fL MCH 28.2 (25.0-35.0) pg MCHC 32.0 (31.0-37.0) g/dL RDW 13.1 (11.5-15.5) % Plt Count 264 (150-450) k/uL MPV 7.9 Neutrophils % 81 % Lymphocytes % 13 % Monocytes % 4 % Eosinophils % 1 % Basophils % 0 % Neutrophils # 10.4 H (1.3-7.7) k/uL Lymphocytes # 1.6 (1.0-4.8) k/uL Monocytes # 0.5 (0-1.0) k/uL Eosinophils # 0.2 (0-0.7) k/uL Basophils # 0.0 (0-0.2) k/uL PT 10.3 (9.0-12.0) sec INR 1.0 (<1.2) APTT 25.1 (22.0-30.0) sec Sodium (137-145) mmol/L Potassium (3.5-5.1) mmol/L Chloride (98-107) mmol/L Carbon Dioxide (22-30) mmol/L Anion Gap mmol/L BUN (9-20) mg/dL Creatinine (0.66-1.25) mg/dL Est GFR (CKD-EPI)AfAm (>60 ml/min/1.73 sqM) Est GFR (CKD-EPI)NonAf (>60 ml/min/1.73 sqM) Glucose (74-99) mg/dL POC Glucose (mg/dL) 228 H (75-99) mg/dL POC Glu [employer] Coordinator Jillian Cassidy Calcium (8.4-10.2) mg/dL Total Bilirubin (0.2-1.3) mg/dL AST (17-59) U/L ALT (4-49) U/L Alkaline Phosphatase (38-126) U/L Total Protein (6.3-8.2) g/dL Albumin (3.5-5.0) g/dL Serum Alcohol mg/dL 04/06/21 Range/Units 22:25 WBC (3.8-10.6) k/uL RBC (4.30-5.90) m/uL Hgb (13.0-17.5) gm/dL Hct (39.0-53.0) % MCV (80.0-100.0) fL MCH (25.0-35.0) pg MCHC (31.0-37.0) g/dL RDW (11.5-15.5) % Plt Count (150-450) k/uL MPV Neutrophils % % Lymphocytes % % Monocytes % % Eosinophils % % Basophils % % Neutrophils # (1.3-7.7) k/uL Lymphocytes # (1.0-4.8) k/uL Monocytes # (0-1.0) k/uL Eosinophils # (0-0.7) k/uL Basophils # (0-0.2) k/uL PT (9.0-12.0) sec INR (<1.2) APTT (22.0-30.0) sec Sodium 138 (137-145) mmol/L Potassium 4.6 (3.5-5.1) mmol/L Chloride 103 (98-107) mmol/L Carbon Dioxide 22 (22-30) mmol/L Anion Gap 13 mmol/L BUN 29 H (9-20) mg/dL Creatinine 1.46 H (0.66-1.25) mg/dL Est GFR (CKD-EPI)AfAm 53 (>60 ml/min/1.73 sqM) Est GFR (CKD-EPI)NonAf 46 (>60 ml/min/1.73 sqM) Glucose 234 H (74-99) mg/dL POC Glucose (mg/dL) (75-99) mg/dL POC Glu Sales And Events Coordinator ID Calcium 9.7 (8.4-10.2) mg/dL Total Bilirubin 0.2 (0.2-1.3) mg/dL AST 23 (17-59) U/L ALT 19 (4-49) U/L Alkaline Phosphatase 100 (38-126) U/L Total Protein 8.0 (6.3-8.2) g/dL Albumin 4.2 (3.5-5.0) g/dL Serum Alcohol <10 mg/dL Disposition Clinical Impression: Altered mental status, Fall, Arterial ischemic stroke, MCA (middle cerebral artery), left, chronic Disposition: ADMITTED IP TO THIS [facility] Condition: Serious Is patient prescribed a controlled substance at d/c from ED?: No Referrals: Antione Johnson MD [Primary Care Provider] - 1-2 days
[2021-04-06 22:42] LABS: ALT 19 U/L (4-49); AST 23 U/L (17-59); African American GFR (CKD) 53 (>60 ml/min/1.73 sqM); Albumin 4.2 g/dL (3.5-5.0); Alcohol <10 mg/dL; Alkaline Phosphatase 100 U/L (38-126); Anion Gap 13 mmol/L; Blood Urea Nitrogen 29 mg/dL (9-20); Calcium 9.7 mg/dL (8.4-10.2); Carbon Dioxide 22 mmol/L (22-30); Chloride 103 mmol/L (98-107); Glucose 234 mg/dL (74-99); Non-African American GFR(CKD) 46 (>60 ml/min/1.73 sqM); Potassium 4.6 mmol/L (3.5-5.1); Sodium 138 mmol/L (137-145); Total Bilirubin 0.2 mg/dL (0.2-1.3)
[2021-04-06 22:43] LABS: Partial Thromboplastin Time 25.1 sec (22.0-30.0); Prothrombin Time 10.3 sec (9.0-12.0)
--- NOTE | 2021-04-06 22:43 | XR ---
EXAMINATION TYPE: XR chest 1V portable DATE OF EXAM: 04/06/2021 COMPARISON: 12/29/2020 HISTORY: Trauma TECHNIQUE: Single view FINDINGS: There is some mild linear infiltrate and atelectasis left lung base. The lung arvizu are fa irly clear. There is no heart failure. There are no hilar masses. IMPRESSION: There is some mild pneumonia and pleural reaction left lung base and atelectasis slightly worse than last exam. No heart failure.
--- NOTE | 2021-04-06 23:07 | CT ---
EXAMINATION TYPE: CT brain yeyo wade con DATE OF EXAM: 04/06/2021 COMPARISON: 12/29/2020 HISTORY: Trauma, pt found unresponsive CT DLP: 1499.8 mGycm Automated exposure control for dose reduction was used. There is cerebral cortical atrophy. There is large area of hypodensity involving left posterior front al lobe and left parietal lobe and anterior left temporal lobe related to old large infarct. There is some enlargement of the left lateral ventricle. There is no mass effect or midline shift. There is n o evidence of intracranial hemorrhage. The skull base is intact. There is normal aeration of the mast oid sinuses. The cervical vertebra show some straightening. The disc spaces are fairly normal. There is no jazmin sarina fracture. Facet joints are intact. I see no focal bone destruction. IMPRESSION: Large left middle cerebral artery old infarct without change compared to old exam. No acute intracran ial abnormality. Chronic small vessel ischemia in the right parietal lobe white matter without change . Minor degenerative changes in the cervical spine. No fracture. No change compared to old exam.
[2021-04-06] MEDS ORDERED: cefTRIAXone IN SWFI 1,000 MG/10 ML SYRINGE IVP STA (23:27)
[2021-04-06] MEDS ORDERED: NALOXONE 0.4 MG/ML 1 ML VIAL IV PRN (23:28)
[2021-04-06] MEDS ORDERED: AZITHROMYCIN 500 MG in SODIUM CHLORIDE 0.9% 250 ML IVPB STA (23:28)
[2021-04-07] MEDS: SODIUM CHLORIDE 0.9% 1,000 ML IV SCH ×3 (00:24→20:55)
[2021-04-07] MEDS ORDERED: LORazepam 2 MG/ML INJ IV PRN (01:05)
[2021-04-07] MEDS ORDERED: diphenhydrAMINE 50 MG/ML 1 ML VIAL IM STA (04:12)
[2021-04-07] MEDS ORDERED: LORazepam 2 MG/ML INJ IV STA (04:12)
[2021-04-07 05:50] LABS: Appearance,Urine Cloudy (Clear); Bacteria,Urine Few /hpf; Bilirubin,Urine Negative (Negative); Blood,Urine Trace (Negative); Color,Urine Light Yellow; Glucose,Urine (UA) 1+ (Negative); Ketones,Urine Negative (Negative); Leukocyte Esterase,Urine Large (Negative); Mucus,Urine Rare /hpf; Nitrite,Urine Positive (Negative); PH, Urine 5.5 (5.0-8.0); Protein,Urine 1+ (Negative); RBC,Urine 20 /hpf (0-5); Urobilinogen,Urine <2.0 mg/dL (<2.0); WBC,Urine 78 /hpf (0-5)
[2021-04-07 05:56] LABS: Amphetamine Screen,Urine Not Detected (NotDetected); Barbiturate Screen,Urine Not Detected (NotDetected); Benzodiazepines Screen,Urine Detected (NotDetected); Cocaine Screen,Urine Not Detected (NotDetected); Methadone Screen, Urine Not Detected (NotDetected); Opiate Screen,Urine Not Detected (NotDetected); Oxycodone Screen, Urine Not Detected (NotDetected); Phencyclidine Screen,Urine Not Detected (NotDetected); Tricyclic Antidepressant,Urine Not Detected (NotDetected); Urn Cannabinoid Scrn Not Detected (NotDetected)
[2021-04-07 07:35] LABS: Glucose,Whole Blood 203 mg/dL (75-99)
[2021-04-07] MEDS: ASPIRIN 300 MG SUPP RECTAL SCH (11:52)
[2021-04-07] MEDS ORDERED: HYDROcodone/APAP 5-325MG 1 EACH TAB PO PRN (12:12)
[2021-04-07] MEDS: LORazepam 2 MG/ML INJ IV PRN ×2 (12:18→20:50)
--- NOTE | 2021-04-07 13:12 | P.CNNES ---
History of Present Illness Consult date: 04/07/21 Requesting physician: Delia Francis Reason for Consult: hx L MCA cva, altered mental status - less verbal than usual History of Present Illness: Patient is a 76-year-old male came to the hospital by ambulance yesterday at 10:05 PM. Patient not able to provide any history. Patient lives in [facility]. As per EMS flow sheet, when they arrived, found patient slumped over in his wheelchair drooling. Staff had mentioned that patient had a fall earlier in the morning however had no injuries so he did not go to the hospital. Patient fell again that night hitting his head. Patient has history of CVA with right-sided deficits, however is able to normal talk and is upright and awake. Patient was alert and oriented 1, GCS of 9, able to answer no questions. He was nonverbal. Shortly after the fall he was seeing one or 2 words but they were slurred. Patient unable to follow any commands. Patient's blood pressure was 156/71, pulse rate 86, respiration 18, saturation 99%. Blood glucose 341 Chest x-ray showed some mild pneumonia and pleural reaction left lung base and atelectasis slightly worse in the last exam. CT of the cervical spine showed minor degenerative changes in the cervical spine. No fracture. CT of the head showed large left middle cerebral artery old infarct without change compared to old exam. No acute intracranial abnormality. Chronic small vessel ischemia in the right parietal lobe white matter without change. I personally reviewed computed tomography scan of the head, and agree with the findings. No change as compared to computed tomography scan of the head the last time it was done. EKG with normal sinus rhythm. Patient's blood test shows WBC 12.9 hemoglobin 11.5, platelet 264. PT/PTT normal. Electrolytes are normal, BUN 29, creatinine 1.46. Hepatic panel normal. UA shows large amount of leukocyte Estrace, 78 WBC and few WBC clumps and few bacteria. Urine drug screen positive for benzodiazepine, blood alcohol level negative. Conner virus PCR negative. Patient's home medications include Lipitor 20 mg, lisinopril 10 mg, Remeron 7.5 mg at bedtime, gabapentin 100 mg daily, insulin, metformin, Risperdal 1.5 mg at bedtime. And multivitamins. Patient apparently not on any antiplatelet medication. Review of Systems ROS unobtainable: due to mental status Past Medical History Past Medical History: CVA/TIA, Dementia, Diabetes Mellitus, Hyperlipidemia, Hypertension, Prostate Disorder Additional Past Medical History / Comment(s): Benign prostatcc hyperplasia with lower urinary tract symptoms. Aphasia (6 word vocabulary), hemiplegia/yves paresis R dominant side. Anemia. Insomnia History of Any Multi-Drug Resistant Organisms: None Reported Past Surgical History: No Surgical Hx Reported Additional Past Surgical History / Comment(s): unknown Past Anesthesia/Blood Transfusion Reactions: No Reported Reaction Past Psychological History: Anxiety Smoking Status: Never smoker Past Alcohol Use History: None Reported Past Drug Use History: None Reported Medications and Allergies Home Medications Medication Instructions Recorded Confirmed Type Atorvastatin Calcium [Lipitor] 20 mg PO HS 10/20/20 04/06/21 History Lisinopril [Zestril] 10 mg PO HS 10/20/20 04/06/21 History Mag Hydrox/Aluminum Hyd/Simeth 15 ml PO Q6H PRN 10/20/20 04/06/21 History [Mylanta Maximum Strength Liq] Acetaminophen [Tylenol 8 Hour] 650 mg PO Q6H PRN 12/29/20 04/06/21 History Gabapentin [Neurontin] 100 mg PO DAILY 12/29/20 04/06/21 History Melatonin 3 mg PO HS 12/29/20 04/06/21 History Mirtazapine 7.5 mg PO HS 12/29/20 04/06/21 History INSULIN ASPART (NovoLOG) [NovoLOG 10 unit SQ AC-TID 04/06/21 04/06/21 History (formulary)] INSULIN ASPART (NovoLOG) [NovoLOG See Protocol SQ ACHS 04/06/21 04/06/21 History (formulary)] Insulin Detemir [Levemir Flextouch 30 units SQ DAILY 04/06/21 04/06/21 History Pen] Multivitamins, Thera [Multivitamin 1 tab PO DAILY 04/06/21 04/06/21 History (formulary)] Sudogest 10mg 10 mg PO BID 04/06/21 04/06/21 History metFORMIN HCL 500 mg PO BID@0700,1600 04/06/21 04/06/21 History risperiDONE [RisperDAL] 1.5 mg PO HS 04/06/21 04/06/21 History Allergies Allergy/AdvReac Type Severity Reaction Status Date / Time latex Allergy Unknown Verified 04/06/21 22:44 Physical Examination - Vital Signs Vital Signs: Vital Signs Temp Pulse Resp BP Pulse Ox 04/07/21 05:00 81 18 96 04/07/21 04:00 86 16 163/83 04/07/21 03:00 86 16 138/50 04/07/21 02:15 90 18 136/76 97 04/07/21 01:00 82 18 111/68 97 04/07/21 00:00 97.9 F 84 18 141/69 98 04/06/21 23:00 88 16 109/61 97 04/06/21 22:07 98.3 F 96 16 153/80 98 Intake and Output 04/06/21 04/07/21 04/07/21 22:59 06:59 14:59 Other: Weight 90.718 kg Patient is an elderly male, who is obtunded, lethargic, keeps his eyes closed. Patient not speaking, although at baseline he does speak. Attention, concentration and fund of knowledge is severely decreased. On cranial examination, right pupil is round and reacting. Patient would not let me open his left eyelid twitching the pupil. Tried multiple times. Visual arvizu, extraocular muscles cannot be tested. Patient has very mild right facial asymmetry. Tongue and lower cranial nerves cannot be assessed due to mental status. On muscle strength testing, patient has spastic right arm. Patient was also holding the left arm tightly onto the chest, but later on was noted to move it. Patient moving left leg slightly better than the right. He was not cooperating with exam. Deep tendon reflexes are diminished and plantar is clearly upgoing on the right, downgoing on the left. Sensory cannot be assessed. Cerebellar function cannot be assessed. Tone is significantly increased in the right arm, mildly in the left arm and bulk of muscles normal. Gait not able to be checked. On general examination, patient did not cooperate with checking of his carotids. No peripheral edema. Abdomen appears nontender, bowel sounds present. No organomegaly. Results - Laboratory Findings CBC and BMP: 04/06/21 22:25 04/06/21 22:25 Abnormal Lab Findings: Abnormal Labs 04/06/21 04/06/21 04/06/21 22:13 22:25 22:25 WBC 12.9 H RBC 4.09 L Hgb 11.5 L Hct 36.0 L Neutrophils # 10.4 H BUN 29 H Creatinine 1.46 H Glucose 234 H POC Glucose (mg/dL) 228 H Urine Protein Urine Glucose (UA) Urine Blood Ur Leukocyte Esterase Urine RBC Urine WBC Urine WBC Clumps Urine Bacteria Urine Mucus U Benzodiazepines Scrn 04/07/21 04/07/21 05:38 07:33 WBC RBC Hgb Hct Neutrophils # BUN Creatinine Glucose POC Glucose (mg/dL) 203 H Urine Protein 1+ H Urine Glucose (UA) 1+ H Urine Blood Trace H Ur Leukocyte Esterase Large H Urine RBC 20 H Urine WBC 78 H Urine WBC Clumps Few H Urine Bacteria Few H Urine Mucus Rare H U Benzodiazepines Scrn Detected H Assessment and Plan Assessment: * 76-year-old male with history of left MCA territory CVA, has developed worsening of neurological functioning, with aphasia. Prior to presentation, he used to speak as per halfway records. 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 * Acute UTI. * Rule out pneumonia * Diabetes * Hypertension * Hyperlipidemia Plan: * Patient was not taking any antiplatelet medication at home. We will start aspirin 300 mg rectally for now. * Nothing by mouth, speech and swallow evaluation. * MRI of the brain evaluate for an acute stroke. * 2-D echo to rule out embolic source. * Patient had an EEG performed 12/30/2020, which showed background slowing, with no epileptiform activity. * Carotid Doppler, rule out stenosis. * B12, folate, TSH, lipid panel and hemoglobin A1c. * Continue neuro checks. * We will follow patient clinically. Thank you for the consult.
--- NOTE | 2021-04-07 14:13 | US ---
EXAMINATION TYPE: US carotid duplex BILAT DATE OF EXAM: 04/07/2021 COMPARISON: NONE CLINICAL HISTORY: History of stroke, clinically worse.. EXAM MEASUREMENTS: RIGHT: Peak Systolic Velocity (PSV) cm/sec ----- Right CCA: 79.0 ----- Right ICA: 478.7 ----- Right ECA: 103.7 ICA/CCA ratio: 6.1 RIGHT: End Diastole cm/sec ----- Right CCA: 12.8 ----- Right ICA: 120.8 ----- Right ECA: 11.7 LEFT: Peak Systolic Velocity (PSV) cm/sec ----- Left CCA: 64.9 ----- Left ICA: 0 ----- Left ECA: 123.6 ICA/CCA ratio: ------ LEFT: End Diastole cm/sec ----- Left CCA: 6.8 ----- Left ICA: 0 ----- Left ECA: 5.1 VERTEBRALS (direction of flow): Right Vertebral: Antegrade Left Vertebral: Antegrade Rhythm: Normal Difficult patient, confused and moving Elevated velocity in the right ICA, Occlusion of the left ICA IMPRESSION: 1. Limited exam as noted by the technologist above. There appears to be occlusion of the left interna l carotid artery. 2. There appears to be a critical stenosis involving the proximal right internal carotid artery. Repo rt called patient's nurse 2 p.m. 04/07/2021 Criteria for Assigning % of Stenosis / Diameter reduction (Estimation based on the indirect measurements of the internal carotid artery velocities (ICA PSV). 1. Normal (no stenosis)=ICA PSV < 125 cm/s: ratio < 2.0: ICA EDV<40 cm/s. 2. Less than 50% stenosis=ICA PSV < 125 cm/s: ratio < 2.0: ICA EDV<40 cm/s. 3. 50 to 69% stenosis=ICA PSV of 125 to 230 cm/s: ration 2.0 ? 4.0: ICA EDV 40-100 cm/s. 4. Greater than 70% stenosis to near occlusion= ICA PSV > 230 cm/s: ratio > 4.0: ICA EDV > 100 cm/s. 5. Near occlusion= ICA PSV velocities may be low or undetectable: variable ratio and ICA EDV. 6. Total occlusion=unable to detect flow.
[2021-04-07 16:50] LABS: Glucose,Whole Blood 205 mg/dL (75-99)
--- NOTE | 2021-04-07 17:08 | HP ---
HISTORY AND PHYSICAL CHIEF COMPLAINTS: Change in mental status and possible stroke. HISTORY OF PRESENT ILLNESS: This 76-year-old gentleman with a past medical history of multiple medical problems including dementia, CVA, diabetes, hypertension, hyperlipidemia, history of prostate disorder being followed by Dr. Hawk in the [facility] had residual right-sided paralysis and minimally verbal activity. The patient was referred with some change in mental status and weakness and had some falls from the F and the patient was taken to [facility] and admitted to the hospital for further evaluation and treatment. UTI with sepsis suspected. Patient admitted for evaluation. Patient is hollering around at this time. Otherwise, the patient is unable to provide a coherent history. Most of the history taken from my discussion with staff and review of the ER chart at this time. As mentioned earlier, patient is started on IV antibiotics also. Creatinine is elevated at 1.46, indicating acute renal failure and dehydration also. PAST MEDICAL HISTORY: History of dementia, history of CVA/TIA, diabetes, hypertension, hyperlipidemia. MEDICATIONS: Prior to admission, home medications are reviewed and include: Risperdal, metformin, multivitamins, Remeron, melatonin, magnesium oxide, Zestril, Levemir, Neurontin. Lipitor, doses and rest of the medications reviewed. ALLERGIES: LATEX. Family history, social history and review of systems could not be taken because of the patient's change in mental status. Family history of diabetes per chart and no history of smoking per chart. PHYSICAL EXAM: Patient is conscious, confused, not combative. Pulse 71, blood pressure 170/60, respirations 14, temperature normal, pulse ox 98% on room air. HEENT: Conjunctivae normal. Oral mucosa dry. NECK: No JVD. CARDIOVASCULAR: S1, S2 muffled. RESPIRATION: Breath sounds diminished in the bases. A few scattered rhonchi. ABDOMEN: Soft, nontender. LEGS are no edema. No swelling. NERVOUS SYSTEM: Diffusely weak and some contractures also present. SKIN: Diffuse ecchymosis present. No ulcers. JOINTS: No active deforming arthropathy. Lymphatics: No lymph nodes palpable in the neck, axillae or groin. LABS: WBC 12.2, hemoglobin 11.5. Other labs noted. ASSESSMENT: 1. Change in mental status possible acute urinary tract infection with sepsis present on admission. 2. Acute on chronic metabolic encephalopathy secondary to urinary tract infection. 3. Bilateral carotid stenosis. 4. History of dementia. 5. 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 6. Increased WBC. 7. Anemia, normocytic of anemia of chronic disease. 8. Increased elevated creatinine with acute tubular necrosis and acute renal failure,prerenal renal failure and dehydration. 9. History of cerebrovascular accident/transient ischemic attack. 10.History of dementia. 11.History of diabetes mellitus, type 2. 12.Hypertension. 13.Hyperlipidemia. 14.History of prostate disorder. 15.History of chronic kidney disease. 16.History of peripheral neuropathy. 17.History of falls. 18.Gait dysfunction. 19.Vascular dementia. 20.History of urinary tract infections. 21.History of tonsillectomy. 22.History of anxiety, depression. 23.FULL CODE. RECOMMENDATIONS AND DISCUSSION: This 76-year-old gentleman who presented with multiple complex medical issues, we will monitor the patient closely, continue the current medications, management and symptomatic treatment. Resume the home medications. Recommend IV Rocephin and obtain cultures. The Covid 19 has been negative. The patient also had a CT scan of the head and neck which I reviewed personally, showed large left MCA, old infarct. No acute abnormalities noted and the patient also had a carotid Doppler. Neurology has seen the patient. Carotid Doppler reviewed. Occlusion of the left internal carotid artery was noted. Critical stenosis involving the proximal right ICA was also noted. Overall prognosis guarded. I would also recommend vascular surgery consultation as well. Prognosis guarded. Further recommendations to follow. A copy of this dictation is being forwarded to Dr. Hawk who is the primary physician. MMRICARDOL / IJN: [id number] /
[2021-04-07 21:05] LABS: Chol/HDL Ratio 2.62 Ratio; LDL Cholesterol,Calculated 42.9 mg/dL (0.0-131.0)
[2021-04-07 21:11] LABS: Glucose,Whole Blood 206 mg/dL (75-99)
[2021-04-07 21:11] LABS: Folate, Serum >20.00 ng/mL (4.40-31.00)
[2021-04-08] MEDS: lisinopriL 10 MG TAB PO SCH ×2 (01:07→21:35)
[2021-04-08] MEDS: MELATONIN 3 MG TABLET PO SCH ×2 (01:09→21:35)
[2021-04-08] MEDS: LORazepam 2 MG/ML INJ IV PRN ×3 (02:03→21:57)
[2021-04-08 07:15] LABS: Basophils # (A) 0.1 k/uL (0-0.2); Basophils % (A) 1 %; Eosinophils # (A) 0.5 k/uL (0-0.7); Eosinophils % (A) 5 %; HCT 32.7 % (39.0-53.0); HGB 10.8 gm/dL (13.0-17.5); Lymphocytes # (A) 2.4 k/uL (1.0-4.8); Lymphocytes % (A) 25 %; MCH 29.1 pg (25.0-35.0); MCHC 33.1 g/dL (31.0-37.0); MCV 87.9 fL (80.0-100.0); Mean Platelet Volume 7.8; Monocytes # (A) 0.6 k/uL (0-1.0); Monocytes % (A) 6 %; Neutrophils % (A) 62 %; Platelet Count 250 k/uL (150-450); RBC 3.73 m/uL (4.30-5.90); WBC 9.7 k/uL (3.8-10.6)
[2021-04-08 07:21] LABS: African American GFR (CKD) >90 (>60 ml/min/1.73 sqM); Anion Gap 5 mmol/L; Blood Urea Nitrogen 14 mg/dL (9-20); Calcium 9.1 mg/dL (8.4-10.2); Carbon Dioxide 25 mmol/L (22-30); Chloride 108 mmol/L (98-107); Glucose 185 mg/dL (74-99); Non-African American GFR(CKD) 78 (>60 ml/min/1.73 sqM); Potassium 3.9 mmol/L (3.5-5.1); Sodium 138 mmol/L (137-145)
[2021-04-08 07:27] LABS: Glucose,Whole Blood 185 mg/dL (75-99)
[2021-04-08] MEDS: GABAPENTIN 100 MG CAP PO SCH (08:53)
[2021-04-08] MEDS: ASPIRIN 300 MG SUPP RECTAL SCH (09:21)
--- NOTE | 2021-04-08 09:32 | ECHOF ---
Referral Reason:CVA MEASUREMENTS -------- HEIGHT: 172.7 cm WEIGHT: 90.7 kg BP: FINDINGS -------- Limited study pt's arms are contracted in front of chest affectiing views of images. Overall left ventricular systolic function is low-normal with, an EF between 50 - 55 %. The RV was not well visualized. The left atrium was not well visualized. The right atrium is normal in size. 5.0mg OF Lumason UTLIZED: 2 OR MORE WALL SEGMENTS NOT VISUALIZED. The aortic valve was not well visualized. The mitral valve was not well visualized. The tricuspid valve was not well visualized. The pulmonic valve was not well visualized. CONCLUSIONS -------- 1. Limited study pt's arms are contracted in front of chest affectiing views of images. 2. Overall left ventricular systolic function is low-normal with, an EF between 50 - 55 %. 3. The RV was not well visualized. 4. The left atrium was not well visualized. 5. The right atrium is normal in size. 6. 5.0mg OF Lumason UTLIZED: 2 OR MORE WALL SEGMENTS NOT VISUALIZED. 7. The aortic valve was not well visualized. 8. The mitral valve was not well visualized. 9. The tricuspid valve was not well visualized. 10. The pulmonic valve was not well visualized. DRIVER: Edita Wynn RDCS
[2021-04-08 12:00] LABS: Glucose,Whole Blood 169 mg/dL (75-99)
[2021-04-08 12:39] VITALS: BMI 30.4
[2021-04-08] MEDS ORDERED: MAG HYDROX/AL HYDROX/SIMETH 30 ML CUP PO PRN (13:06)
[2021-04-08] MEDS ORDERED: ACETAMINOPHEN TAB 325 MG TAB PO PRN (13:06)
--- NOTE | 2021-04-08 13:26 | P.GSCN ---
History of Present Illness Consult date: 04/08/21 History of present illness: The patient is a 76-year-old male came to the hospital via ambulance. The time of my evaluation he is not able to provide any history due to his altered mental status and being medicated for his combativeness. I'm asked to see him regarding carotid stenosis. Per the history, he was found slumped over in a wheelchair drooling. He has a history of a CVA with right-sided deficits but opposing the is able to talk otherwise. He is unable to follow any commands. On imaging and workup is on no significant UTI. Initial workup and evaluation included a carotid Doppler which showed an occluded left internal carotid artery. On the right there was evidence of severe stenosis with a internal carotid artery peak systolic velocity of 478 and a ratio 61. Given these findings were consulted Past Medical History Past Medical History: CVA/TIA, Dementia, Diabetes Mellitus, Hyperlipidemia, Hypertension, Prostate Disorder, Renal Disease Additional Past Medical History / Comment(s): IDDM type II, neuropathy bilateral hands/feet and legs, past "kidney problems", CVA with R sided weakness/aphasia/6 word vocabulary/spouse denies dysphagia, FALLS, vascular dementia, BPH, obst ructive reflux/uropathy/has suprapubic catheter, UTIs, UTI with sepsis, enlarged heart, muscle weakness, anemia, insomnia. History of Any Multi-Drug Resistant Organisms: None Reported Past Surgical History: Tonsillectomy Additional Past Surgical History / Comment(s): Suprapubic catheter Past Anesthesia/Blood Transfusion Reactions: No Reported Reaction Smoking Status: Never smoker - Past Family History Mother Family Medical History: Diabetes Mellitus Father History Unknown: Yes Medications and Allergies Home Medications Medication Instructions Recorded Confirmed Type Atorvastatin Calcium [Lipitor] 20 mg PO HS 10/20/20 04/06/21 History Lisinopril [Zestril] 10 mg PO HS 10/20/20 04/06/21 History Mag Hydrox/Aluminum Hyd/Simeth 15 ml PO Q6H PRN 10/20/20 04/06/21 History [Mylanta Maximum Strength Liq] Acetaminophen [Tylenol 8 Hour] 650 mg PO Q6H PRN 12/29/20 04/06/21 History Gabapentin [Neurontin] 100 mg PO DAILY 12/29/20 04/06/21 History Melatonin 3 mg PO HS 12/29/20 04/06/21 History Mirtazapine 7.5 mg PO HS 12/29/20 04/06/21 History INSULIN ASPART (NovoLOG) [NovoLOG 10 unit SQ AC-TID 04/06/21 04/06/21 History (formulary)] INSULIN ASPART (NovoLOG) [NovoLOG See Protocol SQ ACHS 04/06/21 04/06/21 History (formulary)] Insulin Detemir [Levemir Flextouch 30 units SQ DAILY 04/06/21 04/06/21 History Pen] Multivitamins, Thera [Multivitamin 1 tab PO DAILY 04/06/21 04/06/21 History (formulary)] Sudogest 10mg 10 mg PO BID 04/06/21 04/06/21 History metFORMIN HCL 500 mg PO BID@0700,1600 04/06/21 04/06/21 History risperiDONE [RisperDAL] 1.5 mg PO HS 04/06/21 04/06/21 History Allergies Allergy/AdvReac Type Severity Reaction Status Date / Time latex Allergy Rash/Hives Verified 04/07/21 14:12 Surgical - Exam Vital Signs Temp Pulse Resp BP Pulse Ox 98.3 F 96 16 153/80 98 04/06/21 22:07 04/06/21 22:07 04/06/21 22:07 04/06/21 22:07 04/06/21 22:07 Gen. is a pleasant male in no acute distress. Does not respond to any commands. He said it appears normocephalic. Heart appears regular. No respiratory distress. Contracted right side. Unable to obtain no muscular exam or cranial nerve exam Results - Labs 04/08/21 06:53 04/08/21 06:53 Abnormal Lab Results - Last 24 Hours (Table) 04/06/21 04/07/21 04/07/21 Range/Units 22:29 16:49 21:10 RBC (4.30-5.90) m/uL Hgb (13.0-17.5) gm/dL Hct (39.0-53.0) % Chloride (98-107) mmol/L Glucose (74-99) mg/dL POC Glucose (mg/dL) 205 H 206 H (75-99) mg/dL Hemoglobin A1c 7.8 H (4.0-6.0) % 04/08/21 04/08/21 04/08/21 Range/Units 06:53 06:53 07:02 RBC 3.73 L (4.30-5.90) m/uL Hgb 10.8 L (13.0-17.5) gm/dL Hct 32.7 L (39.0-53.0) % Chloride 108 H (98-107) mmol/L Glucose 185 H (74-99) mg/dL POC Glucose (mg/dL) 185 H (75-99) mg/dL Hemoglobin A1c (4.0-6.0) % 04/08/21 Range/Units 11:55 RBC (4.30-5.90) m/uL Hgb (13.0-17.5) gm/dL Hct (39.0-53.0) % Chloride (98-107) mmol/L Glucose (74-99) mg/dL POC Glucose (mg/dL) 169 H (75-99) mg/dL Hemoglobin A1c (4.0-6.0) % Microbiology - Last 24 Hours (Table) 04/07/21 07:34 Urine Culture - Final Urine,Voided Diabetes panel 04/06/21 04/06/21 04/08/21 Range/Units 22:29 22:29 06:53 Sodium 138 (137-145) mmol/L Potassium 3.9 (3.5-5.1) mmol/L Chloride 108 H (98-107) mmol/L Carbon Dioxide 25 (22-30) mmol/L BUN 14 (9-20) mg/dL Creatinine 0.94 (0.66-1.25) mg/dL Glucose 185 H (74-99) mg/dL Hemoglobin A1c 7.8 H (4.0-6.0) % Calcium 9.1 (8.4-10.2) mg/dL Triglycerides 132.00 (0.00-149.00) mg/dL HDL Cholesterol 42.70 (40.00-60.00) mg/dL Thyroid panel 04/06/21 Range/Units 22:29 TSH 1.980 (0.350-5.500) uIU/mL Calcium panel 04/08/21 Range/Units 06:53 Calcium 9.1 (8.4-10.2) mg/dL Pituitary panel 04/06/21 04/08/21 Range/Units 22:29 06:53 Sodium 138 (137-145) mmol/L Potassium 3.9 (3.5-5.1) mmol/L Chloride 108 H (98-107) mmol/L Carbon Dioxide 25 (22-30) mmol/L BUN 14 (9-20) mg/dL Creatinine 0.94 (0.66-1.25) mg/dL Glucose 185 H (74-99) mg/dL Calcium 9.1 (8.4-10.2) mg/dL TSH 1.980 (0.350-5.500) uIU/mL Adrenal panel 04/08/21 Range/Units 06:53 Sodium 138 (137-145) mmol/L Potassium 3.9 (3.5-5.1) mmol/L Chloride 108 H (98-107) mmol/L Carbon Dioxide 25 (22-30) mmol/L BUN 14 (9-20) mg/dL Creatinine 0.94 (0.66-1.25) mg/dL Glucose 185 H (74-99) mg/dL Calcium 9.1 (8.4-10.2) mg/dL Assessment and Plan Assessment: Left internal carotid artery occlusion Severe right internal carotid artery stenosis Altered mental status Plan: Patient is currently pending MRI. Would await further imaging to evaluate this is a systematic or symptomatically, regardless this is a severe high-grade stenosis in the patient does need to be on antiplatelet therapy. Currently his functional status and overall clinical picture is hard to glean whether or not he is more chronically like this versus this is new. Regardless would be to h ave family discussions regarding overt risks and benefits of any possible intervention. He would need a CT angiogram of his neck if it is found to be in overall benefit he plan to forward with possible surgical intervention
--- NOTE | 2021-04-08 14:54 | MR ---
EXAMINATION TYPE: MR brain wo con DATE OF EXAM: 04/08/2021 2:43 PM COMPARISON: NONE HISTORY: Acute stroke, AMS. FINDINGS: The ventricles, basal cisterns and sulci overlying the cerebral convexities are moderately enlarged. Ex vacuo dilatation left lateral ventricle secondary to remote left MCA territory insult. There is evidence of mild periventricular white matter ischemic demyelination. Remote deep white matter insults are also noted. No acute edema is seen on diffusion weighted imaging. There is no evidence for midline shift or mass effect. Acute intracranial hemorrhage or extra-axial collection is not evident. The paranasal sinuses and mastoid air cells are well-aerated. IMPRESSION: Age-related atrophic and chronic small vessel ischemic change. No acute intracranial process at this time.
[2021-04-08 17:03] LABS: Glucose,Whole Blood 226 mg/dL (75-99)
[2021-04-08] MEDS: SODIUM CHLORIDE 0.9% 1,000 ML IV SCH (17:19)
[2021-04-08] MEDS: INSULIN ASPART (NovoLOG) 100 UNIT/ML VIAL SQ SCH (17:19)
[2021-04-08] MEDS: metFORMIN 500 MG TAB PO SCH (17:19)
--- NOTE | 2021-04-08 18:27 | EEG ---
ELECTROENCEPHALOGRAM REPORT PREAMBLE: This is a 76-year-old male with altered mental status. Patient has history of stroke. Rule out any epileptiform activity. EEG FINDINGS: This is a 21 channel digital EEG recorded with video competent, utilizing 10/20 international system with referential and bipolar montages. The background consists of poorly developed and regulated, mixed frequencies of low amplitude mixed diffuse delta and theta activity seen in bihemispheric region. Background does not seem to be reactive to eye opening or closing, or even to photic stimulation. Different stages of sleep were not seen. No focal or generalized epileptiform activity was seen. IMPRESSION: This is an abnormal EEG due to background slowing of moderate to severe degree. This is suggestive of generalized cerebral dysfunction as can be seen with encephalopathy of metabolic, vascular or degenerative conditions. No epileptiform activity was seen. MMODL / IJN: [id number] / AMEE
--- NOTE | 2021-04-08 18:54 | PN ---
PROGRESS NOTE DATE OF SERVICE: 04/08/2021 This 76-year-old gentleman who was admitted with change in mental status, acute UTI with sepsis also had some metabolic encephalopathy. Patient also has some bilateral carotid artery stenosis. Patient also had an MRI of the brain recommended by Neurology. The patient continues to be confused and combative. MRA showed age- related changes. Dr. Alba has seen the patient. Patient is on antiplatelet treatment. A CT angiogram is probably required down the line once the patient's acute condition is stabilized. The 2D echo with Doppler was also noted, which showed ejection fraction about 50% to 55%. No chest pain. No palpitations. No fever. PHYSICAL EXAMINATION: Patient is conscious, confused. Pulse 68, blood pressure 185/69, respirations 16, temperature 98.4, pulse ox 97% on room air. HEENT: Conjunctivae normal. NECK: No jugular venous distention. CARDIOVASCULAR: S1, S2 muffled. RESPIRATION: Breath sounds diminished at the bases. A few scattered rhonchi. ABDOMEN: Soft. NERVOUS SYSTEM: Diffusely weak. LABS: Accu-Cheks 185, 169. Hemoglobin 10.8. The cultures are negative so far. ASSESSMENT: 1. Acute urinary tract infection with sepsis, present on admission. 2. Change in mental status, acute metabolic encephalopathy secondary to urinary tract infection. 3. Bilateral carotid stenosis. 4. History of dementia. 5. 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 6. Increased white count. 7. Anemia, normocytic, anemia of chronic disease. 8. Elevated creatinine with acute tubular necrosis and acute renal failure with possible prerenal factors and dehydration. 9. History of cerebrovascular accident, transient ischemic attack. 10.History of dementia. 11.Diabetes mellitus, type 2. 12.Hypertension. 13.Hyperlipidemia. 14.History of prostate disorder. 15.History of chronic kidney disease, stage 3. 16.History of peripheral neuropathy. 17.History of falls. 18.Gait dysfunction. 19.Vascular dementia. 20.History of urinary tract infection. 21.History of tonsillectomy. 22.History of anxiety, depression. 23.FULL CODE. RECOMMENDATIONS AND DISCUSSION: I recommend to continue current medications, continue with the monitoring, symptomatic treatment. Continue with the antiplatelet agents. Continue the rest of the medications. Symptomatic treatment for the confusion, agitation. Guarded prognosis because of multiple complex medical issues. Further recommendations to follow. for now. Continue with the IV antibiotics. See orders for further details. Prognosis guarded. MMODL / IJN: [id number] / MTDD
[2021-04-08 20:35] LABS: Glucose,Whole Blood 227 mg/dL (75-99)
[2021-04-08] MEDS ORDERED: SUDOGEST PO SCH (21:00)
[2021-04-08] MEDS: MIRTAZAPINE 15 MG TAB PO SCH (21:35)
[2021-04-08] MEDS: ATORVASTATIN 20 MG TAB PO SCH (21:35)
[2021-04-08] MEDS: risperiDONE 0.5 MG TAB PO SCH (21:36)
--- NOTE | 2021-04-08 23:38 | P.PN ---
Subjective Progress Note Date: 04/08/21 Patient was seen for a follow-up. Patient is much more alert and awake. Patient is coughing a little. Patient's mentation is back to baseline. I spoke to patient's on the phone. She mentions that patient had initial stroke in 2002, after which she had some speech difficulty but was able to talk. He has sometimes to use a cane. He had another stroke in summer after which his speech became severely limited. He only has 6 word vocabulary including okay, yes, no, able to speak name of his , and then he uses some foul language. Apparently patient's speech is now back to baseline. Patient's mentions that he was brought to the hospital because he fell twice and then he was not like himself, with mental status change. Objective - Vital Signs Vital signs: Vital Signs Temp 98.2 F 04/08/21 19:45 Pulse 89 04/08/21 19:45 Resp 16 04/08/21 19:45 BP 176/72 04/08/21 19:45 Pulse Ox 96 04/08/21 19:45 Intake & Output 04/08/21 04/08/21 04/09/21 06:59 18:59 06:59 Output Total 600 300 275 Balance -600 -300 -275 Weight 90.718 kg Output: Urine 600 300 275 Other: Voiding Method Indwelling Catheter # Bowel Movements 0 - Exam Patient is quite alert and awake. Patient has some comprehension, sometimes says "OK", "yes", and sometimes no. He often repeats some words what he is told. Patient's pupils are round and reacting. Visual arvizu could not be tested. Patient has right facial asymmetry. Patient's strength of left upper extremity is normal. Lower extremities are normal. Right arm is spastic. - Labs CBC & Chem 7: 04/08/21 06:53 04/08/21 06:53 Labs: Abnormal Lab Results - Last 24 Hours (Table) 04/08/21 04/08/21 04/08/21 Range/Units 06:53 06:53 07:02 RBC 3.73 L (4.30-5.90) m/uL Hgb 10.8 L (13.0-17.5) gm/dL Hct 32.7 L (39.0-53.0) % Chloride 108 H (98-107) mmol/L Glucose 185 H (74-99) mg/dL POC Glucose (mg/dL) 185 H (75-99) mg/dL 04/08/21 04/08/21 04/08/21 Range/Units 11:55 16:52 20:34 RBC (4.30-5.90) m/uL Hgb (13.0-17.5) gm/dL Hct (39.0-53.0) % Chloride (98-107) mmol/L Glucose (74-99) mg/dL POC Glucose (mg/dL) 169 H 226 H 227 H (75-99) mg/dL Microbiology - Last 24 Hours (Table) 04/08/21 16:30 Urine Culture - Preliminary Urine,Suprapubic 04/07/21 07:34 Urine Culture - Final Urine,Voided Assessment and Plan Assessment: * 76-year-old male with history of left MCA territory CVA, has developed worsening of neurological functioning, with aphasia. Prior to presentation, he used to speak (6 words vocabulary), which he was not speaking at the time of admission. Now seems to be back to baseline. 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 * Acute UTI. * Rule out pneumonia * Diabetes * Hypertension * Hyperlipidemia Plan: * Patient was not taking any antiplatelet medication at home. Patient to start 325 mg aspirin daily. * Speech and swallow evaluation. * MRI of the brain revealed age-related atrophy, and chronic small vessel ischemic change. No acute stroke. * 2-D echo revealed left ventricular systolic function is low normal with the Epic feeling 50-55%. Right ventricle is not well visualized. Left atrium was not well visualized. * As the MRI did not reveal any acute stroke, with significant altered mental status, stat EEG was performed to rule out partial status. It revealed background slowing of moderate to severe degree, consistent with encephalopathy of metabolic, vascular or degenerative origin. No epileptiform activity was seen. * Patient's mentation has stabilized. Probably back to baseline. Altered mental status perhaps related to UTI. However urine cultures have not grown any bacteria. * Carotid Doppler revealed occlusion of left ICA. There appears to be a critical stenosis involving the proximal right ICA. Vascular surgery on board. * B12 541, folate > 20, TSH 1.98, lipid panel cholesterol 112, LDL 42, HDL 42 and triglycerides 132. Continue Lipitor 20 mg daily. * Hemoglobin A1c 7.8. Optimize diabetes controlled to target A1c <7.0
[2021-04-09 07:15] LABS: Glucose,Whole Blood 165 mg/dL (75-99)
[2021-04-09] MEDS: SODIUM CHLORIDE 0.9% 1,000 ML IV SCH (07:57)
[2021-04-09] MEDS: MULTIVITAMINS, THERA 1 EACH TAB PO SCH (08:46)
[2021-04-09] MEDS: metFORMIN 500 MG TAB PO SCH ×2 (08:46→17:40)
[2021-04-09] MEDS: GABAPENTIN 100 MG CAP PO SCH (08:46)
[2021-04-09] MEDS: INSULIN ASPART (NovoLOG) 100 UNIT/ML VIAL SQ SCH ×4 (08:46→21:16)
[2021-04-09] MEDS ORDERED: ASPIRIN 325 MG TAB PO SCH (09:00)
[2021-04-09] MEDS: INSULIN DETEMIR (LEVEMIR) 100 UNIT/ML SYR SQ SCH (09:10)
[2021-04-09 11:20] LABS: Glucose,Whole Blood 79 mg/dL (75-99)
[2021-04-09 12:00] LABS: Glucose,Whole Blood 64 mg/dL (75-99)
[2021-04-09 12:52] LABS: Glucose,Whole Blood 90 mg/dL (75-99)
--- NOTE | 2021-04-09 14:36 | P.PN ---
Subjective Progress Note Date: 04/09/21 Patient seen and examined. No acute events. Objective - Vital Signs Vital signs: Vital Signs Temp 98.0 F 04/09/21 08:00 Pulse 54 L 04/09/21 08:00 Resp 16 04/09/21 08:00 BP 155/67 04/09/21 08:00 Pulse Ox 95 04/09/21 08:00 Intake & Output 04/08/21 04/09/21 04/09/21 18:59 06:59 18:59 Output Total 300 275 Balance -300 -275 Weight 90.718 kg Output: Urine 300 275 Other: Voiding Method Indwelling Catheter Indwelling Catheter Incontinent - Exam No acute distress. Slightly more alert than yesterday but still not responsive per se to questions or commands. No acute distress. No respiratory distress. Contracted right upper extremities as previous. - Labs CBC & Chem 7: 04/08/21 06:53 04/08/21 06:53 Labs: Abnormal Lab Results - Last 24 Hours (Table) 04/08/21 04/08/21 04/09/21 Range/Units 16:52 20:34 07:12 POC Glucose (mg/dL) 226 H 227 H 165 H (75-99) mg/dL 04/09/21 Range/Units 11:58 POC Glucose (mg/dL) 64 L (75-99) mg/dL Microbiology - Last 24 Hours (Table) 04/08/21 16:30 Urine Culture - Preliminary Urine,Suprapubic 04/07/21 07:34 Urine Culture - Final Urine,Voided Assessment and Plan Assessment: Left internal carotid artery occlusion Severe right internal carotid artery stenosis Altered mental status Plan: Imaging is reviewed. MRI shows no acute intracranial changes. Given his high- grade stenosis would need discussion going forward regarding outpatient intervention short-term follow-up. He would need a CT angiogram of his neck noted to properly evaluate him surgically. This was discussed with his primary team. Continue dual antiplatelet therapy
[2021-04-09 17:15] LABS: Glucose,Whole Blood 163 mg/dL (75-99)
--- NOTE | 2021-04-09 18:15 | P.PN ---
Subjective Progress Note Date: 04/09/21 04/09/2021: Patient was seen for a follow-up. Patient is asleep. Did not wake him up. 04/08/2021: Patient is much more alert and awake. Patient is coughing a little. Patient's mentation is back to baseline. I spoke to patient's on the phone. She mentions that patient had initial stroke in 2002, after which she had some speech difficulty but was able to talk. He has sometimes to use a cane. He had another stroke in summer after which his speech became severely limited. He only has 6 word vocabulary including okay, yes, no, able to speak name of his , and then he uses some foul language. Apparently patient's speech is now back to baseline. Patient's mentions that he was brought to the hospital because he fell twice and then he was not like himself, with mental status change. Objective - Vital Signs Vital signs: Vital Signs Temp 97.5 F L 04/09/21 14:00 Pulse 63 04/09/21 14:00 Resp 15 04/09/21 14:00 BP 117/56 04/09/21 14:00 Pulse Ox 99 04/09/21 14:00 Intake & Output 04/08/21 04/09/21 04/09/21 18:59 06:59 18:59 Output Total 300 275 Balance -300 -275 Weight 90.718 kg Output: Urine 300 275 Other: Voiding Method Indwelling Catheter Indwelling Catheter Incontinent - Exam Patient is asleep. Patient appears comfortable. Detail examination deferred. - Labs CBC & Chem 7: 04/08/21 06:53 04/08/21 06:53 Labs: Abnormal Lab Results - Last 24 Hours (Table) 04/08/21 04/09/21 04/09/21 Range/Units 20:34 07:12 11:58 POC Glucose (mg/dL) 227 H 165 H 64 L (75-99) mg/dL 04/09/21 Range/Units 17:13 POC Glucose (mg/dL) 163 H (75-99) mg/dL Microbiology - Last 24 Hours (Table) 04/08/21 16:30 Urine Culture - Preliminary Urine,Suprapubic Assessment and Plan Assessment: * Altered mental status, possibilities include TIA versus encephalopathy from UTI. MRI showed no acute stroke. 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 * Vascular dementia * Acute UTI. * Rule out pneumonia * Diabetes * Hypertension * Hyperlipidemia Plan: * Patient was not taking any antiplatelet medication at home. Patient to start 325 mg aspirin daily. * Speech and swallow evaluation. * MRI of the brain revealed age-related atrophy, and chronic small vessel ischemic change. Evidence of old encephalomalacia involving left MCA territory with ex-vacuo dilation. No acute stroke. * 2-D echo revealed left ventricular systolic function is low normal with the ejection fraction 50-55%. Right ventricle is not well visualized. Left atrium was not well visualized. * As the MRI did not reveal any acute stroke, with significant altered mental status, stat EEG was performed to rule out partial status. It revealed background slowing of moderate to severe degree, consistent with encephalopathy of metabolic, vascular or degenerative origin. No epileptiform activity was seen. * Patient's mentation has stabilized. Probably back to baseline. Altered mental status perhaps related to UTI vs ? TIA. However urine cultures have not grown any bacteria. Patient currently on ceftriaxone. * Carotid Doppler revealed occlusion of left ICA. There appears to be a critical stenosis involving the proximal right ICA. Vascular surgery on board. Recommended CT angiogram. We will order CTA. Vascular surgery also recommending dual antiplatelet medication. * B12 541, folate > 20, TSH 1.98, lipid panel cholesterol 112, LDL 42, HDL 42 and triglycerides 132. Continue Lipitor 20 mg daily. * Hemoglobin A1c 7.8. Optimize diabetes controlled to target A1c <7.0
--- NOTE | 2021-04-09 19:10 | PN ---
PROGRESS NOTE DATE OF SERVICE: 04/09/2021 This 76-year-old gentleman admitted with change in mental status and acute UTI also had some metabolic encephalopathy. Patient also had bilateral carotid artery stenosis. Dr. Alba is following the patient closely. The patient is on antiplatelet medications. No chest pain. No palpitation. A brain MRI, which I reviewed, showed age-related atrophic changes; no acute changes. Past medical history reviewed. Review of systems could not be taken; the patient is confused. CURRENT MEDICATIONS: Noted, including Tylenol, [place], Maalox, aspirin, Lipitor. Rest of the medications and doses are reviewed. PHYSICAL EXAMINATION: Patient is conscious, mildly confused. Pulse 63, blood pressure 117/56, respirations 15, temperature 97.5, pulse ox 99% on room air. HEENT: Conjunctivae normal. NECK: No jugular venous distention. CARDIOVASCULAR: S1, S2 muffled. RESPIRATION: A few scattered rhonchi and crackles. ABDOMEN: Soft, nontender. LEGS: No edema. No swelling. NERVOUS SYSTEM: No focal deficit. LABS: Accu-Cheks 143, hemoglobin 10.8. Other labs are noted. ASSESSMENT: 1. Acute urinary tract infection with sepsis, present on admission. Cultures are negative so far. 2. Change in mental status, acute metabolic encephalopathy secondary to acute urinary tract infection. 3. Bilateral carotid stenosis with complete occlusion on the left side. 4. History of dementia. 5. 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 6. Increased white count. 7. Anemia, normocytic anemia of chronic disease. 8. Elevated creatinine with acute tubular necrosis with acute renal failure with possible prerenal factors and dehydration. 9. History of cerebrovascular accident, transient ischemic attack. 10.History of dementia. 11.Diabetes mellitus, type 2. 12.Hypertension. 13.Hyperlipidemia. 14.History of prostate disorder. 15.History of chronic kidney disease, stage 3. 16.History of peripheral neuropathy. 17.History of falls. 18.Gait dysfunction. 19.Vascular dementia. 20.History of urinary tract infection. 21.History of tonsillectomy. 22.History of anxiety, depression. 23.FULL CODE. RECOMMENDATIONS AND DISCUSSION: I recommend to continue current medications, continue with the monitoring, symptomatic treatment. Otherwise at this time I recommend continuing with the empiric antibiotics. Once the patient is stabilized, I would recommend that the patient be transferred to [facility] for continued rehab and then patient needs outpatient evaluation with Dr. Alba regarding possible intervention for the carotid artery, depending upon the patient's level of mentation and preferences of the patient and family. Prognosis is guarded because of multiple complex medical conditions. Further recommendations to follow. See orders for further details. MMODL / IJN: [id number] /
[2021-04-09 20:36] LABS: Glucose,Whole Blood 285 mg/dL (75-99)
[2021-04-09] MEDS: CLOPIDOGREL 75 MG TAB PO SCH (21:16)
[2021-04-09] MEDS: ATORVASTATIN 20 MG TAB PO SCH (21:16)
[2021-04-09] MEDS: lisinopriL 10 MG TAB PO SCH (21:16)
[2021-04-09] MEDS: MELATONIN 3 MG TABLET PO SCH (21:16)
[2021-04-09] MEDS: risperiDONE 0.5 MG TAB PO SCH (21:16)
[2021-04-09] MEDS: MIRTAZAPINE 15 MG TAB PO SCH (21:19)
[2021-04-10] MEDS: SODIUM CHLORIDE 0.9% 1,000 ML IV SCH ×3 (00:53→20:06)
[2021-04-10 07:11] LABS: Glucose,Whole Blood 177 mg/dL (75-99)
[2021-04-10] MEDS: GABAPENTIN 100 MG CAP PO SCH (08:45)
[2021-04-10] MEDS: metFORMIN 500 MG TAB PO SCH ×2 (08:46→17:10)
[2021-04-10] MEDS: INSULIN DETEMIR (LEVEMIR) 100 UNIT/ML SYR SQ SCH (08:46)
[2021-04-10] MEDS: INSULIN ASPART (NovoLOG) 100 UNIT/ML VIAL SQ SCH ×4 (08:46→21:05)
[2021-04-10] MEDS: CLOPIDOGREL 75 MG TAB PO SCH (08:46)
[2021-04-10] MEDS: ASPIRIN 81 MG PO SCH (08:46)
[2021-04-10] MEDS: MULTIVITAMINS, THERA 1 EACH TAB PO SCH (09:12)
[2021-04-10 11:54] LABS: Glucose,Whole Blood 192 mg/dL (75-99)
--- NOTE | 2021-04-10 14:58 | CT ---
EXAMINATION TYPE: CT angio head neck DATE OF EXAM: 04/10/2021 COMPARISON: None HISTORY: ICA stenosis,vs occlusion CT DLP: 451.8 mGycm Automated exposure control for dose reduction was used. CONTRAST: Performed with IV Contrast, patient injected with 65 mL of Isovue 370. There are Three-D postprocessed images. Images obtained from the aortic arch to the vertex of the bra in with IV contrast. There is normal branching pattern of the great vessels of the aortic arch. There is arterial flow in both subclavian arteries. There is arterial flow in the common carotid arteries bilaterally. There is approximate 85% stenosis of the origin of the right internal carotid artery. There is complete occlu sarina of the left internal carotid artery at the bifurcation. There is arterial flow in both vertebral arteries. There is arterial flow in the vertebral basilar artery system. There is arterial flow in the anterior middle and posterior cerebral arteries bilaterally. There are diminutive branches of the left middle cerebral artery. There is evidence of old left middle cerebral artery distribution infarct in the left temporal lobe. There is arterial flow in the left anterior c erebral artery and left middle cerebral artery through the anterior and posterior widely patent commu nicating arteries. There is normal enhancement of the venous sinuses. There is no mass effect. There is no evidence of a neurysm or neovascularity. There are some spondylotic changes in the cervical spine. No fracture. IMPRESSION: There is thrombosis of the entire left internal carotid artery. There is approximately 85% stenosis at the origin of the right internal carotid artery. Large left hemisphere infarct with reduced size of the images of the left middle cerebral artery.
[2021-04-10 16:22] LABS: Glucose,Whole Blood 209 mg/dL (75-99)
[2021-04-10] MEDS: AMPICILLIN-SULBACTAM 3 GM in SODIUM CHLORIDE 0.9% 100 ML IVPB SCH ×2 (18:34→23:59)
--- NOTE | 2021-04-10 18:59 | PN ---
PROGRESS NOTE DATE OF SERVICE: 04/10/2021. This 76-year-old gentleman who was admitted with acute UTI with sepsis also had some change in mental status. The cultures are showing gram-negative bacilli and group D Enterococcus. Multiple consultants are following the patient closely. A CT angiography was done which showed thrombosis of the entire left internal carotid artery, 85% stenosis of origin of the right internal carotid artery. Large left hemispheric infarct. No chest pain. No palpitations. No fever. EXAM: On exam: Alert oriented x2. Pulse 63, blood pressure 160/80, respirations 16, temperature 97.4, pulse ox 97 percent on room air. HEENT: Conjunctivae normal. Neck is no JVD. Cardiovascular: S1, S2 muffled. Respirations: Breath sounds diminished in the bases. A few scattered rhonchi. Abdomen: Soft. Legs are no edema. No swelling. Nervous system: No focal deficits. LAB STUDIES: WBC 9.2, hemoglobin 10.8, glucose 209. ASSESSMENT: 1. Acute urinary tract infection with sepsis present on admission. Cultures showing group D Enterococcus as well as gram-negative bacilli. 2. Change in mental status, acute metabolic encephalopathy secondary to acute urinary tract infection. 3. Bilateral carotid stenosis with complete occlusion of the left side and 85% stenosis of the origin of the right internal carotid artery. 4. History of dementia. 5. 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 6. Increased WBC. 7. Anemia, normocytic anemia of chronic disease. 8. Elevated creatinine with acute tubular necrosis with acute renal failure with possible prerenal factors and dehydration. 9. History of cerebrovascular accident/transient ischemic attack. 10.History of dementia. 11.Diabetes mellitus, type 2. 12.Hypertension. 13.Hyperlipidemia. 14.History of prostate disorder. 15.History of chronic kidney disease stage 3. 16.History of peripheral neuropathy. 17.History of falls. 18.Gait dysfunction. 19.Vascular dementia. 20.History of urinary tract infection. 21.History of tonsillectomy. 22.History of anxiety, depression. 23.FULL CODE. RECOMMENDATIONS AND DISCUSSION: I recommend to continue current medications, monitor and symptomatic treatment. Otherwise at this time I recommend continue the antibiotics. Currently the patient is on Rocephin. Await in ID of organisms and continue to monitor. Further recommendations to follow. MMODL / IJN: [id number] /
[2021-04-10 20:47] LABS: Glucose,Whole Blood 288 mg/dL (75-99)
[2021-04-10] MEDS: MIRTAZAPINE 15 MG TAB PO SCH (21:05)
[2021-04-10] MEDS: ATORVASTATIN 20 MG TAB PO SCH (21:06)
[2021-04-10] MEDS: lisinopriL 10 MG TAB PO SCH (21:06)
[2021-04-10] MEDS: MELATONIN 3 MG TABLET PO SCH (21:06)
[2021-04-10] MEDS: risperiDONE 0.5 MG TAB PO SCH (22:00)
[2021-04-11 07:13] LABS: Glucose,Whole Blood 182 mg/dL (75-99)
[2021-04-11] MEDS: AMPICILLIN-SULBACTAM 3 GM in SODIUM CHLORIDE 0.9% 100 ML IVPB SCH (07:52)
[2021-04-11] MEDS: INSULIN DETEMIR (LEVEMIR) 100 UNIT/ML SYR SQ SCH (07:52)
[2021-04-11] MEDS: ASPIRIN 81 MG PO SCH (07:53)
[2021-04-11] MEDS: INSULIN ASPART (NovoLOG) 100 UNIT/ML VIAL SQ SCH ×3 (07:53→17:01)
[2021-04-11] MEDS: GABAPENTIN 100 MG CAP PO SCH (07:53)
[2021-04-11] MEDS: CLOPIDOGREL 75 MG TAB PO SCH (07:53)
[2021-04-11] MEDS: metFORMIN 500 MG TAB PO SCH ×2 (07:53→17:01)
[2021-04-11] MEDS: MULTIVITAMINS, THERA 1 EACH TAB PO SCH (07:53)
[2021-04-11 08:21] VITALS: TEMP 97.8
--- NOTE | 2021-04-11 10:32 | P.PN ---
Subjective Progress Note Date: 04/11/21 This is 76-year-old male sitting up in the bedside. He is aphasic. He is able to follow some simple commands. No acute changes through the night. Yesterday he underwent a CT angiogram of the head and neck which shows thrombus of the entire left internal carotid artery. Approximately 85% stenosis at the origin of the right internal carotid artery. There is a large left hemispheric infarct with reduced size of the images of the left middle cerebral artery. Objective - Vital Signs Vital signs: Vital Signs Temp 97.8 F 04/11/21 07:13 Pulse 66 04/11/21 07:13 Resp 14 04/11/21 07:13 BP 124/76 04/11/21 07:13 Pulse Ox 95 04/11/21 07:13 Intake & Output 04/10/21 04/11/21 04/11/21 18:59 06:59 18:59 Intake Total 965 Output Total 800 Balance 165 Intake: IV 965 Ampicillin-Sulbactam 3 gm 100 In Sodium Chloride 0.9% 100 ml @ 200 mls/hr IVPB Q8HR TARA Rx#:[id number] Sodium Chloride 0.9% 1, 865 000 ml @ 75 mls/hr IV . [id number] TARA Rx#:[id number] Output: Urine 800 Other: Voiding Method Indwelling Catheter Indwelling Catheter # Bowel Movements 1 1 - Exam General appearance: The patient is alert, appears in no acute distress. HET: Head is normocephalic and atraumatic. Pupils are equal and reactive. Neck: Supple without lymphadenopathy. Trachea midline. Abdomen: Soft, nontender, nondistended. Extremities: Normal skin color and turgor. Neurological: Patient alert and oriented 1. Able to follow simple commands and answer simple questions. Right upper extremity spastic. - Labs CBC & Chem 7: 04/08/21 06:53 04/08/21 06:53 Labs: Abnormal Lab Results - Last 24 Hours (Table) 04/10/21 04/10/21 04/10/21 Range/Units 11:53 16:20 20:44 POC Glucose (mg/dL) 192 H 209 H 288 H (75-99) mg/dL 04/11/21 Range/Units 07:11 POC Glucose (mg/dL) 182 H (75-99) mg/dL Microbiology - Last 24 Hours (Table) 04/08/21 16:30 Urine Culture - Preliminary Urine,Suprapubic Gram Neg Bacilli Group D Enterococcus Assessment and Plan Assessment: Left internal carotid artery occlusion Severe right internal carotid artery stenosis Altered mental status Plan: 1. CT angiogram head and neck reviewed, disc made 2. Continue dual antiplatelet therapy 3. Recommend short term outpatient follow up with vascular surgery to discuss surgical intervention, otherwise patient is cleared for discharge from vascular surgery The impression and plan of care has been dictated as directed. I performed a history and examination of this patient, discussed the same with the dictator. I agree with the dictator's note ,documented as a scribe. Any additional findings or plans will be noted.
[2021-04-11 11:00] LABS: Basophils # (A) 0.06 X 10*3/uL (0.00-0.10); Basophils % (A) 0.6 %; Eosinophils # (A) 0.46 X 10*3/uL (0.04-0.35); Eosinophils % (A) 4.8 %; HCT 33.5 % (39.6-50.0); HGB 10.7 g/dL (13.0-17.0); Lymphocytes # (A) 2.87 X 10*3/uL (0.90-5.00); Lymphocytes % (A) 29.6 %; MCH 28.2 pg (27.0-32.0); MCHC 31.9 g/dL (32.0-37.0); MCV 88.4 fL (80.0-97.0); Mean Platelet Volume 10.4 fL (9.5-12.2); Monocytes # (A) 0.79 X 10*3/uL (0.20-1.00); Monocytes % (A) 8.2 %; Neutrophils # (A) 5.46 X 10*3/uL (1.80-7.70); Neutrophils % (A) 56.4 %; Platelet Count 252 X 10*3/uL (140-440); RBC 3.79 X 10*6/uL (4.40-5.60); WBC 9.68 X 10*3/uL (4.50-10.00)
[2021-04-11 11:19] LABS: African American GFR (CKD) 92.5 (60.0-200.0); Anion Gap 14.5 mmol/L (10.00-18.00); BUN/Creat Ratio 10.75 Ratio (12.00-20.00); Blood Urea Nitrogen 9.9 mg/dL (9.0-27.0); Calcium 8.9 mg/dL (8.7-10.3); Carbon Dioxide 18.2 mmol/L (20.0-27.5); Non-African American GFR(CKD) 79.8 (60.0-200.0); Potassium 4.2 mmol/L (3.5-5.5)
[2021-04-11 12:14] LABS: Glucose,Whole Blood 253 mg/dL (75-99)
--- NOTE | 2021-04-11 13:15 | P.PN ---
Subjective Progress Note Date: 04/11/20 The patient is seen by me for first time for neurological management. Per the patient nurse he is about the same. Please refer to Dr. Flores's note for further details. Objective - Vital Signs Vital signs: Vital Signs Temp 97.8 F 04/11/21 07:13 Pulse 66 04/11/21 07:13 Resp 14 04/11/21 07:13 BP 124/76 04/11/21 07:13 Pulse Ox 95 04/11/21 07:13 Intake & Output 04/10/21 04/11/21 04/11/21 18:59 06:59 18:59 Intake Total 965 Output Total 800 Balance 165 Intake: IV 965 Ampicillin-Sulbactam 3 gm 100 In Sodium Chloride 0.9% 100 ml @ 200 mls/hr IVPB Q8HR [facility] Rx#:[id number] Sodium Chloride 0.9% 1, 865 000 ml @ 75 mls/hr IV . [id number] [facility] Rx#:[id number] Output: Urine 800 Other: Voiding Method Indwelling Catheter Indwelling Catheter Indwelling Catheter # Bowel Movements 1 1 - Exam GENERAL: The patient is lying in bed and is not in acute distress. NEUROLOGICAL: Higher mental function: The patient is awake, alert. He is nods correctly to his name with options. He follows commands with pontomine (showing me thumbs up and lifting left arm). He has significant aphasia (seems predominately expressive). Cranial nerves: The pupils are round, equal and reactive to light. Visual arvizu could not assess because of cooperation. EOM is intact and tracking throughout the room. No facial weakness. Mild dysarthria. Motor: The strength is able to lift left upper extremity above gravity. Has spastic over the right upper extremity. Could not assess lowers because of his cooperation. Cerebellum: Could not assess because of cooperation. Sensation: Could not assess because of cooperation. WORK-UP: * MRI of the brain revealed age-related atrophy, and chronic small vessel ischemic change. Evidence of old encephalomalacia involving left MCA april tory with ex-vacuo dilation. No acute stroke. * 2-D echo revealed left ventricular systolic function is low normal with the ejection fraction 50-55%. Right ventricle is not well visualized. Left atri um was not well visualized. * EEG was performed to rule out partial status. It revealed background slowing of moderate to severe degree, consistent with encephalopathy of metabolic, vascular or degenerative origin. No epileptiform activity was seen. * Carotid Doppler revealed occlusion of left ICA. There appears to be a critical stenosis involving the proximal right ICA. * CTA head and neck showed thrombosis of the entire left ICA, approximately 85% stenosis of the origin of the right ICA. * B12 541, folate > 20, TSH 1.98. * lipid panel cholesterol 112, LDL 42, HDL 42 and triglycerides 132. * Hemoglobin A1c 7.8. * U/A: Leukocyte esterase large, urine wbc 78, bacteruria few * Coronavirus PCR: Not detected. - Labs CBC & Chem 7: 04/11/21 07:57 04/11/21 07:57 Labs: Abnormal Lab Results - Last 24 Hours (Table) 04/10/21 04/10/21 04/11/21 Range/Units 16:20 20:44 07:11 RBC (4.40-5.60) X 10*6/uL Hgb (13.0-17.0) g/dL Hct (39.6-50.0) % MCHC (32.0-37.0) g/dL Eosinophils # (0.04-0.35) X 10*3/uL Carbon Dioxide (20.0-27.5) mmol/L BUN/Creatinine Ratio (12.00-20.00) Ratio Glucose (70-110) mg/dL POC Glucose (mg/dL) 209 H 288 H 182 H (75-99) mg/dL 04/11/21 04/11/21 04/11/21 Range/Units 07:57 07:57 12:13 RBC 3.79 L (4.40-5.60) X 10*6/uL Hgb 10.7 L (13.0-17.0) g/dL Hct 33.5 L (39.6-50.0) % MCHC 31.9 L (32.0-37.0) g/dL Eosinophils # 0.46 H (0.04-0.35) X 10*3/uL Carbon Dioxide 18.2 L (20.0-27.5) mmol/L BUN/Creatinine Ratio 10.75 L (12.00-20.00) Ratio Glucose 183 H (70-110) mg/dL POC Glucose (mg/dL) 253 H (75-99) mg/dL Microbiology - Last 24 Hours (Table) 04/08/21 16:30 Urine Culture - Preliminary Urine,Suprapubic Gram Neg Bacilli Group D Enterococcus Assessment and Plan Assessment: * Altered mental status:Possibly encephalopathy from UTI. MRI showed no acute stroke. 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 * Vascular dementia * Acute UTI (gram neg bacilli group D enterococcus). * Diabetes * Hypertension * Hyperlipidemia Plan: * Patient was not taking any antiplatelet medication at home. Was started on ASA 81mg and Plavix 75mg daily. Increased Lipitor from 20mg to 40mg qhs. * Vascular surgery team consulted and no intervention as inpatient and will follow-up as outpatient * Speech and swallow evaluation. * As the MRI did not reveal any acute stroke, with significant altered mental status, stat EEG was performed to rule out partial status. It revealed background slowing of moderate to severe degree, consistent with encephalopathy of metabolic, vascular or degenerative origin. No epileptiform activity was seen.Patient's mentation has stabilized. Probably back to baseline. Altered mental status perhaps related to UTI vs ? TIA. Patient currently on Unasyn. * Will defer the rest of management to the primary team. * Upon discharge, the patient needs to follow-up with a neurologist within 1-2 weeks. The plan is discussed with his nurse. There is no further neurological work-up needed. Alton Naranjo M.D. Neuro-Hospitalist. Time with Patient: Less than 30
--- NOTE | 2021-04-11 14:42 | P.DS ---
Providers Date of admission: 04/08/21 13:54 Expected date of discharge: 04/11/21 Attending physician: Luis Wise Consults: 04/06/21 23:28 Consult Physician Urgent Consulting Provider: Jose Flores Consult Reason/Comments: hx L MCA cva, altered mental status - less verbal than usual Do you want consulting provider notified?: Yes 04/07/21 14:17 Consult Physician Stat Consulting Provider: Pauly Alba Consult Reason/Comments: critical carotid ultrasound Do you want consulting provider notified?: Yes 04/07/21 14:52 Consult Physician Routine Consulting Provider: Pauly Alba Consult Reason/Comments: carotid stenosis follow up Do you want consulting provider notified?: Yes Primary care physician: Antione Johnson Hospital Course: Final Diagnosis Acute urinary tract infection, with sepsis present on admission with gram negative bacilli and group d enterococcus change in mental status, acute metabolic encephalopathy, secondary to acute UTI 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 and 85% on the right large left MCA territory old infarct increased WBC anemia, normocytic anemia of chronic disease elevated creatinine with ATN with acute renal failure with possible prerenal factors and dehydration history of dementia diabetes mellitus, type 2 hypertension hyperlipidemia history of prostate disorder history of chronic kidney disease stage 3 history of peripheral neuropathy history of falls gait dysfunction vascular dementia history of UTI history of tonsillectomy history of anxiety, depression full code Discharge disposition Patient is being discharged in a stable condition with guarded prognosis to [facility]. Patient will follow-up with Dr. Johnson in the outpatient setting upon discharge. Patient is to continue with oral ceftin twice daily for 7 days on discharge. Patient is to continue with aspirin and plavix and close outpatient follow up with Dr. Alba vascular surgery on discharge. Total time taken is greater than 35 minutes. Hospital course This is a 76-year-old male who was admitted for acute UTI with sepsis and also had some altered mental status and being closely monitored. Patient with gram negative bacilli and group d enteroccoccus and will continue oral ceftin 500mg twice daily for 7 days. Patient was also evaluated by neurology and vascular surgery and will continue on aspirin and plavix and will follow up outpatient in 1-2 weeks for carotid stenosis per Dr. Alba recommendations. Currently no reports of chest pain, worsening shortness of breath, or palpitations. Patient is afebrile. No reports of nausea or vomiting and patient is tolerating diet. Patient will be discharged to [facility]. Guarded prognosis. On exam vital signs are stable. Cardio S1, S2 are muffled. Respiratory system shows diminished breath sounds at the bases with no wheezing or rhonchi noted. Abdomen is soft and obese, and nontender. Nervous system shows diffuse weakness. Please refer to medication reconciliation sheet for a list of medications. Patient Condition at Discharge: Stable Plan - Discharge Summary Discharge Rx Participant: No New Discharge Prescriptions: New Aspirin 81 mg PO DAILY tab Cefuroxime Axetil [Ceftin] 500 mg PO BID 4 Days #8 tab HYDROcodone/APAP 5-325MG [Gilsum 5-325] 1 each PO Q6HR PRN #3 tab PRN Reason: Pain INSULIN ASPART (NovoLOG) [NovoLOG (formulary)] 0 unit SQ ACHS ml Clopidogrel [Plavix] 75 mg PO DAILY tab Continue Atorvastatin Calcium [Lipitor] 40 mg PO HS Melatonin 3 mg PO HS Acetaminophen [Tylenol 8 Hour] 650 mg PO Q6H PRN PRN Reason: Pain Sudogest 10mg 10 mg PO BID INSULIN ASPART (NovoLOG) [NovoLOG (formulary)] 10 unit SQ AC-TID metFORMIN HCL 500 mg PO BID@0700,1600 Gabapentin [Neurontin] 100 mg PO DAILY #3 cap Mag Hydrox/Aluminum Hyd/Simeth [Mylanta Maximum Strength Liq] 15 ml PO Q6H PRN PRN Reason: Heartburn Lisinopril [Zestril] 10 mg PO HS Mirtazapine 7.5 mg PO HS INSULIN ASPART (NovoLOG) [NovoLOG (formulary)] See Protocol SQ ACHS Insulin Detemir [Levemir Flextouch Pen] 30 units SQ DAILY Multivitamins, Thera [Multivitamin (formulary)] 1 tab PO DAILY risperiDONE [RisperDAL] 1.5 mg PO HS #2 tab Discharge Medication List Atorvastatin Calcium [Lipitor] 40 mg PO HS 10/20/20 [History] Lisinopril [Zestril] 10 mg PO HS 10/20/20 [History] Mag Hydrox/Aluminum Hyd/Simeth [Mylanta Maximum Strength Liq] 15 ml PO Q6H PRN 10/20/20 [History] Acetaminophen [Tylenol 8 Hour] 650 mg PO Q6H PRN 12/29/20 [History] Melatonin 3 mg PO HS 12/29/20 [History] Mirtazapine 7.5 mg PO HS 12/29/20 [History] INSULIN ASPART (NovoLOG) [NovoLOG (formulary)] 10 unit SQ AC-TID 04/06/21 [History] INSULIN ASPART (NovoLOG) [NovoLOG (formulary)] See Protocol SQ ACHS 04/06/21 [History] Insulin Detemir [Levemir Flextouch Pen] 30 units SQ DAILY 04/06/21 [History] Multivitamins, Thera [Multivitamin (formulary)] 1 tab PO DAILY 04/06/21 [History] Sudogest 10mg 10 mg PO BID 04/06/21 [History] metFORMIN HCL 500 mg PO BID@0700,1600 04/06/21 [History] Aspirin 81 mg PO DAILY tab 04/11/21 [Rx] Cefuroxime Axetil [Ceftin] 500 mg PO BID 4 Days #8 tab 04/11/21 [Rx] Clopidogrel [Plavix] 75 mg PO DAILY tab 04/11/21 [Rx] Gabapentin [Neurontin] 100 mg PO DAILY #3 cap 04/11/21 [Rx] HYDROcodone/APAP 5-325MG [Gilsum 5-325] 1 each PO Q6HR PRN #3 tab 04/11/21 [Rx] INSULIN ASPART (NovoLOG) [NovoLOG (formulary)] 0 unit SQ ACHS ml 04/11/21 [Rx] risperiDONE [RisperDAL] 1.5 mg PO HS #2 tab 04/11/21 [Rx] Follow up Appointment(s)/Referral(s): Antione Johnson MD [Primary Care Provider] - 1-2 days Pauly Alba DO [STAFF PHYSICIAN] - 1 Week Adelso Huynh MD [Medical Doctor] - 1 Week Ambulatory/Diagnostic Orders: Complete Blood Count w/diff [LAB.AMB] Time Frame: 3 Days, Location: None Selected Activity/Diet/Wound Care/Special Instructions: Patient is going to [place] activity as tolerated continue taking antibiotics for 4 days and then may discontinue follow up with Dr. Alba vascular surgery outpatient follow up neurology outpatient follow up pcp outpatient repeat labs of cbc and bmp in 2-3 days continue current diet continue to monitor accuchecks achs and continue current medications Discharge Disposition: TRANSFER TO SNF/ECF
[2021-04-11 15:34] VITALS: BP 183/81; PULSE 81; RESP 16
[2021-04-11 16:46] LABS: Glucose,Whole Blood 194 mg/dL (75-99)
[2021-04-11] MEDS ORDERED: ATORVASTATIN 40 MG TAB PO SCH (21:00)
== END 2021-04-11 18:29 | DRG 871 ==
LOC: EC 22:05 → 5NMEDONC 23:28 → 4SSUR 04-07 20:09 → OBSVTOIN 04-08 13:54 → 4SSUR 04-08 19:55
PROVIDERS: ADMIT Internal Medicine; ATTEND Internal Medicine
DX: A41.9 Sepsis, unspecified organism (principal); G93.41 Metabolic encephalopathy; I63.512 Cerebral infarction due to unspecified occlusion or stenosis of left middle cerebral artery; J18.9 Pneumonia, unspecified organism; N17.0 Acute kidney failure with tubular necrosis; I69.351 Hemiplegia and hemiparesis following cerebral infarction affecting right dominant side; J98.11 Atelectasis; N39.0 Urinary tract infection, site not specified; R47.01 Aphasia; D63.8 Anemia in other chronic diseases classified elsewhere; E11.22 Type 2 diabetes mellitus with diabetic chronic kidney disease; E66.9 Obesity, unspecified; E78.5 Hyperlipidemia, unspecified; E86.0 Dehydration; F01.50 Vascular dementia, unspecified severity, without behavioral disturbance, psychotic disturbance, mood disturbance, and anxiety; I12.9 Hypertensive chronic kidney disease with stage 1 through stage 4 chronic kidney disease, or unspecified chronic kidney disease; I65.23 Occlusion and stenosis of bilateral carotid arteries; N18.30 Chronic kidney disease, stage 3 unspecified; S80.211A Abrasion, right knee, initial encounter; S80.212A Abrasion, left knee, initial encounter; W19.XXXA Unspecified fall, initial encounter; Z79.4 Long term (current) use of insulin; Z79.84 Long term (current) use of oral hypoglycemic drugs; Z79.899 Other long term (current) drug therapy; Z83.3 Family history of diabetes mellitus; Z87.440 Personal history of urinary (tract) infections; Z91.81 History of falling; F32.A Depression, unspecified; F41.9 Anxiety disorder, unspecified; G47.00 Insomnia, unspecified; R40.2420 Glasgow coma scale score 9-12, unspecified time
CPT/HCPCS: 36415; 70450; 70496; 70498; 70551; 71045; 72125; 80048; 80053; 80061; 80306; 80320; 81001; 82607; 82746; 83036; 84443; 85025; 85610; 85730; 86850; 86900; 86901; 87077; 87086; 87186; 87324; 87635; 93005; 93308; 93880; 95816; 99285

== ENCOUNTER 2021-10-24 18:02 | Inpatient (IN) | payer MEDICARE, BC, OTHER ==
[2021-10-24] MEDS ORDERED: ACETAMINOPHEN TAB 325 MG TAB PO STA (18:17)
[2021-10-24] MEDS ORDERED: SODIUM CHLORIDE 0.9% 1,000 ML IV STA ×2 (18:17→19:17)
--- NOTE | 2021-10-24 18:21 | ED ---
General Adult HPI - General Stated complaint: Sepsis Time Seen by Provider: 10/24/21 18:16 Source: patient, EMS, RN notes reviewed, old records reviewed Mode of arrival: EMS - History of Present Illness Initial comments: 76-year-old male with a history of encephalopathy in the past who just finished a course of Macrobid who was sent in today because of elevated temperature. Sepsis is concerning the staff members at the nursing facility. No nausea no vomiting no reported chills or sweats patient himself is a poor historian. Patient does have a chronic indwelling Alba catheter. - Related Data Home Medications Medication Instructions Recorded Confirmed lisinopriL [Zestril] 10 mg PO HS 10/20/20 10/24/21 Melatonin 3 mg PO HS 12/29/20 10/24/21 Mirtazapine 7.5 mg PO HS 12/29/20 10/24/21 INSULIN ASPART (NovoLOG) [NovoLOG See Protocol SQ ACHS 04/06/21 10/24/21 (formulary)] Insulin Detemir [Levemir Flextouch 30 units SQ DAILY 04/06/21 10/24/21 Pen] Multivitamins, Thera [Multivitamin 1 tab PO DAILY 04/06/21 10/24/21 (formulary)] metFORMIN HCL 500 mg PO BID 04/06/21 10/24/21 Acetaminophen [Tylenol] 650 mg PO Q6H PRN 10/24/21 10/24/21 Atorvastatin Calcium [Lipitor] 40 mg PO HS 10/24/21 10/24/21 HYDROcodone/APAP 5-325MG [[place] 1 tab PO Q6HR PRN 10/24/21 10/24/21 5-325] INSULIN ASPART (NovoLOG) [NovoLOG 10 unit SQ AC-TID 10/24/21 10/24/21 (formulary)] risperiDONE [RisperDAL] 1.5 mg PO HS 10/24/21 10/24/21 Previous Rx's Medication Instructions Recorded Aspirin 81 mg PO DAILY tab 04/11/21 Clopidogrel [Plavix] 75 mg PO DAILY tab 04/11/21 Gabapentin [Neurontin] 100 mg PO DAILY #10 cap 04/11/21 Allergies Allergy/AdvReac Type Severity Reaction Status Date / Time latex Allergy Rash/Hives Verified 10/24/21 19:54 Review of Systems ROS Statement: Those systems with pertinent positive or pertinent negative responses have been documented in the HPI. ROS Other: All systems not noted in ROS Statement are negative. 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 History of Any Multi-Drug Resistant Organisms: None Reported Past Surgical History: Tonsillectomy Additional Past Surgical History / Comment(s): Suprapubic catheter Past Anesthesia/Blood Transfusion Reactions: No Reported Reaction Smoking Status: Never smoker - Past Family History Mother Family Medical History: Diabetes Mellitus Father History Unknown: Yes General Exam - General Exam Comments Initial Comments: This a well-developed well-nourished awake alert but confused male General appearance: alert Head exam: Present: atraumatic, normocephalic, normal inspection Eye exam: Present: normal appearance, PERRL, EOMI. Absent: scleral icterus, conjunctival injection, periorbital swelling ENT exam: Present: mucous membranes dry Neck exam: Present: normal inspection, full ROM, other. Absent: tenderness, meningismus, lymphadenopathy Respiratory exam: Present: decreased breath sounds. Absent: respiratory distress, wheezes, rales, rhonchi, stridor Cardiovascular Exam: Present: regular rate, normal rhythm, normal heart sounds. Absent: systolic murmur, diastolic murmur, rubs, gallop, clicks GI/Abdominal exam: Present: soft, normal bowel sounds. Absent: distended, tenderness, guarding, rebound, rigid exam: Present: normal inspection, other (Alba catheter in place edwin urine that appears be clear) Extremities exam: Present: normal inspection, full ROM, normal capillary refill. Absent: tenderness, pedal edema, joint swelling, calf tenderness Back exam: Present: normal inspection Neurological exam: Present: alert, CN II-XII intact. Absent: oriented X3 Psychiatric exam: Present: normal affect, normal mood Skin exam: Present: warm, dry, intact, normal color. Absent: rash Course Vital Signs 10/24/21 10/24/21 10/24/21 18:13 20:13 20:25 Temperature 103.1 F H 100 F H Pulse Rate 98 114 H Respiratory 17 18 Rate Blood Pressure 177/73 O2 Sat by Pulse 97 95 Oximetry Medical Decision Making - Medical Decision Making Patient does demonstrate evidence of dehydration and UTI elevated lactic acidosis secondary to dehydration - Lab Data Result diagrams: 10/24/21 18:25 10/24/21 18:25 Lab Results 10/24/21 10/24/21 10/24/21 Range/Units 18:25 18:25 18:25 WBC 10.6 (3.8-10.6) k/uL RBC 4.00 L (4.30-5.90) m/uL Hgb 11.3 L (13.0-17.5) gm/dL Hct 35.4 L (39.0-53.0) % MCV 88.5 (80.0-100.0) fL MCH 28.3 (25.0-35.0) pg MCHC 32.0 (31.0-37.0) g/dL RDW 13.7 (11.5-15.5) % Plt Count 205 (150-450) k/uL MPV 7.5 Neutrophils % 89 % Lymphocytes % 3 % Monocytes % 4 % Eosinophils % 3 % Basophils % 0 % Neutrophils # 9.4 H (1.3-7.7) k/uL Lymphocytes # 0.3 L (1.0-4.8) k/uL Monocytes # 0.4 (0-1.0) k/uL Eosinophils # 0.4 (0-0.7) k/uL Basophils # 0.0 (0-0.2) k/uL Sodium 133 L (137-145) mmol/L Potassium 4.4 (3.5-5.1) mmol/L Chloride 103 (98-107) mmol/L Carbon Dioxide 22 (22-30) mmol/L Anion Gap 8 mmol/L BUN 19 (9-20) mg/dL Creatinine 0.97 (0.66-1.25) mg/dL Est GFR (CKD-EPI)AfAm 87 (>60 ml/min/1.73 sqM) Est GFR (CKD-EPI)NonAf 76 (>60 ml/min/1.73 sqM) Glucose 149 H (74-99) mg/dL Lactic Ac Sepsis Rflx Plasma Lactic Acid Ezekiel (0.7-2.0) mmol/L Calcium 8.9 (8.4-10.2) mg/dL Magnesium 1.5 L (1.6-2.3) mg/dL Total Bilirubin 0.3 (0.2-1.3) mg/dL AST 59 (17-59) U/L ALT 39 (4-49) U/L Alkaline Phosphatase 115 (38-126) U/L Creatine Kinase 111 (55-170) U/L Total Protein 7.2 (6.3-8.2) g/dL Albumin 3.9 (3.5-5.0) g/dL Urine Color Yellow Urine Appearance Turbid (Clear) Urine pH 8.0 (5.0-8.0) Ur Specific Wheelwright 1.021 (1.001-1.035) Urine Protein 1+ H (Negative) Urine Glucose (UA) Negative (Negative) Urine Ketones Negative (Negative) Urine Blood Small H (Negative) Urine Nitrite Positive (Negative) Urine Bilirubin Negative (Negative) Urine Urobilinogen <2.0 (<2.0) mg/dL Ur Leukocyte Esterase Large H (Negative) Urine RBC 35 H (0-5) /hpf Urine WBC 86 H (0-5) /hpf Ur Squamous Epith Cells 1 (0-4) /hpf Amorphous Sediment Rare H (None) /hpf Urine Bacteria Many H (None) /hpf Urine Mucus Occasional H (None) /hpf Coronavirus (PCR) (Not Detectd) Influenza Type A RNA (Not Detectd) Influenza Type B (PCR) (Not Detectd) 10/24/21 10/24/21 10/24/21 Range/Units 18:25 18:45 18:49 WBC (3.8-10.6) k/uL RBC (4.30-5.90) m/uL Hgb (13.0-17.5) gm/dL Hct (39.0-53.0) % MCV (80.0-100.0) fL MCH (25.0-35.0) pg MCHC (31.0-37.0) g/dL RDW (11.5-15.5) % Plt Count (150-450) k/uL MPV Neutrophils % % Lymphocytes % % Monocytes % % Eosinophils % % Basophils % % Neutrophils # (1.3-7.7) k/uL Lymphocytes # (1.0-4.8) k/uL Monocytes # (0-1.0) k/uL Eosinophils # (0-0.7) k/uL Basophils # (0-0.2) k/uL Sodium (137-145) mmol/L Potassium (3.5-5.1) mmol/L Chloride (98-107) mmol/L Carbon Dioxide (22-30) mmol/L Anion Gap mmol/L BUN (9-20) mg/dL Creatinine (0.66-1.25) mg/dL Est GFR (CKD-EPI)AfAm (>60 ml/min/1.73 sqM) Est GFR (CKD-EPI)NonAf (>60 ml/min/1.73 sqM) Glucose (74-99) mg/dL Lactic Ac Sepsis Rflx Y Plasma Lactic Acid Ezekiel 2.6 H* (0.7-2.0) mmol/L Calcium (8.4-10.2) mg/dL Magnesium (1.6-2.3) mg/dL Total Bilirubin (0.2-1.3) mg/dL AST (17-59) U/L ALT (4-49) U/L Alkaline Phosphatase (38-126) U/L Creatine Kinase (55-170) U/L Total Protein (6.3-8.2) g/dL Albumin (3.5-5.0) g/dL Urine Color Urine Appearance (Clear) Urine pH (5.0-8.0) Ur Specific Wheelwright (1.001-1.035) Urine Protein (Negative) Urine Glucose (UA) (Negative) Urine Ketones (Negative) Urine Blood (Negative) Urine Nitrite (Negative) Urine Bilirubin (Negative) Urine Urobilinogen (<2.0) mg/dL Ur Leukocyte Esterase (Negative) Urine RBC (0-5) /hpf Urine WBC (0-5) /hpf Ur Squamous Epith Cells (0-4) /hpf Amorphous Sediment (None) /hpf Urine Bacteria (None) /hpf Urine Mucus (None) /hpf Coronavirus (PCR) (Not Detectd) Influenza Type A RNA Not Detected (Not Detectd) Influenza Type B (PCR) Not Detected (Not Detectd) 10/24/21 Range/Units 18:49 WBC (3.8-10.6) k/uL RBC (4.30-5.90) m/uL Hgb (13.0-17.5) gm/dL Hct (39.0-53.0) % MCV (80.0-100.0) fL MCH (25.0-35.0) pg MCHC (31.0-37.0) g/dL RDW (11.5-15.5) % Plt Count (150-450) k/uL MPV Neutrophils % % Lymphocytes % % Monocytes % % Eosinophils % % Basophils % % Neutrophils # (1.3-7.7) k/uL Lymphocytes # (1.0-4.8) k/uL Monocytes # (0-1.0) k/uL Eosinophils # (0-0.7) k/uL Basophils # (0-0.2) k/uL Sodium (137-145) mmol/L Potassium (3.5-5.1) mmol/L Chloride (98-107) mmol/L Carbon Dioxide (22-30) mmol/L Anion Gap mmol/L BUN (9-20) mg/dL Creatinine (0.66-1.25) mg/dL Est GFR (CKD-EPI)AfAm (>60 ml/min/1.73 sqM) Est GFR (CKD-EPI)NonAf (>60 ml/min/1.73 sqM) Glucose (74-99) mg/dL Lactic Ac Sepsis Rflx Plasma Lactic Acid Ezekiel (0.7-2.0) mmol/L Calcium (8.4-10.2) mg/dL Magnesium (1.6-2.3) mg/dL Total Bilirubin (0.2-1.3) mg/dL AST (17-59) U/L ALT (4-49) U/L Alkaline Phosphatase (38-126) U/L Creatine Kinase (55-170) U/L Total Protein (6.3-8.2) g/dL Albumin (3.5-5.0) g/dL Urine Color Urine Appearance (Clear) Urine pH (5.0-8.0) Ur Specific Wheel[place] (1.001-1.035) Urine Protein (Negative) Urine Glucose (UA) (Negative) Urine Ketones (Negative) Urine Blood (Negative) Urine Nitrite (Negative) Urine Bilirubin (Negative) Urine Urobilinogen (<2.0) mg/dL Ur Leukocyte Esterase (Negative) Urine RBC (0-5) /hpf Urine WBC (0-5) /hpf Ur Squamous Epith Cells (0-4) /hpf Amorphous Sediment (None) /hpf Urine Bacteria (None) /hpf Urine Mucus (None) /hpf Coronavirus (PCR) Not Detected (Not Detectd) Influenza Type A RNA (Not Detectd) Influenza Type B (PCR) (Not Detectd) - Radiology Data Radiology results: report reviewed (Imaging reviewed no acute findings), image reviewed Disposition Clinical Impression: Urinary tract infection, Dehydration, Elevated lactic acid level, Febrile illne ss, acute Disposition: ADMITTED IP TO THIS [facility] Condition: Fair Referrals: Nonstaff,Physician [Primary Care Provider] - 1-2 days Decision Date: 10/24/21 Decision Time: 20:30
[2021-10-24 18:31] LABS: Basophils % (A) 0 %; Eosinophils # (A) 0.4 k/uL (0-0.7); Eosinophils % (A) 3 %; HCT 35.4 % (39.0-53.0); HGB 11.3 gm/dL (13.0-17.5); Lymphocytes # (A) 0.3 k/uL (1.0-4.8); Lymphocytes % (A) 3 %; MCH 28.3 pg (25.0-35.0); MCV 88.5 fL (80.0-100.0); Mean Platelet Volume 7.5; Monocytes # (A) 0.4 k/uL (0-1.0); Monocytes % (A) 4 %; Neutrophils # (A) 9.4 k/uL (1.3-7.7); Neutrophils % (A) 89 %; Platelet Count 205 k/uL (150-450); RDW 13.7 % (11.5-15.5); WBC 10.6 k/uL (3.8-10.6)
[2021-10-24 18:35] LABS: Amorphous Sediment,Urine Rare /hpf; Appearance,Urine Turbid (Clear); Bacteria,Urine Many /hpf; Bilirubin,Urine Negative (Negative); Blood,Urine Small (Negative); Color,Urine Yellow; Glucose,Urine (UA) Negative (Negative); Ketones,Urine Negative (Negative); Leukocyte Esterase,Urine Large (Negative); Mucus,Urine Occasional /hpf; Nitrite,Urine Positive (Negative); Protein,Urine 1+ (Negative); RBC,Urine 35 /hpf (0-5); Specific Gravity,Urine 1.021 (1.001-1.035); Squamous Epithelial Cell,Urine 1 /hpf (0-4); Urobilinogen,Urine <2.0 mg/dL (<2.0); WBC,Urine 86 /hpf (0-5)
[2021-10-24 18:43] LABS: Albumin 3.9 g/dL (3.5-5.0); Calcium 8.9 mg/dL (8.4-10.2); Magnesium 1.5 mg/dL (1.6-2.3); Potassium 4.4 mmol/L (3.5-5.1); Total Bilirubin 0.3 mg/dL (0.2-1.3); Total Protein 7.2 g/dL (6.3-8.2)
[2021-10-24] MEDS ORDERED: cefTRIAXone IN SWFI 1,000 MG/10 ML SYRINGE IVP STA (19:17)
--- NOTE | 2021-10-24 19:17 | XR ---
EXAMINATION TYPE: XR chest 2V DATE OF EXAM: 10/24/2021 COMPARISON: 04/06/2021 HISTORY: Fever TECHNIQUE: FINDINGS: Heart is normal. Lungs are clear of consolidation. There are no hilar masses. Costophrenic angles are clear. Mediastinum is normal. No heart failure. IMPRESSION: There is relative poor inspiration similar to old exam. No heart failure or pulmonary con solidation.
[2021-10-24] MEDS ORDERED: NALOXONE 0.4 MG/ML 1 ML VIAL IV PRN (20:51)
[2021-10-24] MEDS ORDERED: ACETAMINOPHEN TAB 325 MG TAB PO PRN (20:51)
[2021-10-24] MEDS ORDERED: MAGNESIUM SULFATE-D5W PMX 1 GM in DEXTROSE/WATER 1 100ML.BAG IVPB ONE (21:42)
[2021-10-24] MEDS: MIRTAZAPINE 15 MG TAB PO SCH (22:12)
[2021-10-24] MEDS: lisinopriL 10 MG TAB PO SCH (22:12)
[2021-10-24] MEDS: metFORMIN 500 MG TAB PO SCH (22:12)
[2021-10-24] MEDS: ATORVASTATIN 40 MG TAB PO SCH (22:12)
[2021-10-24] MEDS: risperiDONE 0.5 MG TAB PO SCH (22:13)
[2021-10-24] MEDS: MELATONIN 3 MG TABLET PO SCH (23:50)
[2021-10-25 04:16] LABS: Iron 15 ug/dL (65-175); Total Iron Binding Capacity 273 ug/dL (228-460)
[2021-10-25 07:03] LABS: Glucose,Whole Blood 138 mg/dL (70-110)
--- NOTE | 2021-10-25 07:53 | HP ---
HISTORY AND PHYSICAL 76-year-old white male with history of encephalopathy, failed Macrobid for UTI. He came in with elevated temperature, found to have urosepsis. He was yelling and screaming at people in the ER. He is out of control with his speech and no reported chills or sweats or nausea or vomiting. He has chronic indwelling Alba. Home medicines list: Zestril 10 daily. Melatonin 3 at night, mirtazapine 7.5 at night, NovoLog a.c., q.h.s., Levemir 30 units subcu daily, multivitamin daily, metformin 500 b.i.d., Lipitor 40 q.h.s., [place] 5/325 every 6, Risperdal 1.5 mg daily, NovoLog 10 units subcu a.c. t.i.d. ALLERGIES: LATEX. 14-point review of systems unobtainable as patient does not really respond positive or negative. He is screaming and yelling out of control. PAST MEDICAL HISTORY: CVA, TIA, dementia, diabetes mellitus, hypertension, dyslipidemia, prostate disorder, renal disease, insulin-dependent type 2, prior CVA with right-sided weakness. He has had falls with vascular dementia, obstructive uropathy, UTIs with sepsis, enlarged heart, muscle weakness, anemia, insomnia. Surgeries: Tonsillectomy. FAMILY HISTORY: Diabetes mellitus in mother. PHYSICAL EXAMINATION: T-max 103.1, T now 100 degrees, pulse is 90s to low 100s, respiratory 16 to 18, blood pressure 170s over 70s, O2 95, 97. Cardiovascular: Regular rate and rhythm. Lungs are clear. No stridor. Psych: He screams and yells. He can talk just fine. Neurologic: He moves 4 extremities. Extremities: He has a Alba in. No cyanosis, clubbing, edema. GI soft, nontender. Neck is supple. No mass. Skin warm, dry, intact. No rashes. ASSESSMENT: 1. Dehydration. 2. Urinary tract infection. 3. Elevated lactic acidosis secondary to dehydration. 4. Abnormal UA. 5. Possible metabolic encephalopathy, worsening dementia secondary to urinary tract infection. 6. Acute on chronic anemia, hemoglobin 11.3. Urine shows white blood cells 86, red cells 35, large leukocyte esterase, failing Macrobid outpatient. 7. Lactic acid 2.6 for lactic acidosis. 8. Continue with IV Rocephin where urine culture is pending. Dr. Etienne consulted for this. 9. Rehydrate. 10.IV normal saline overnight. 11.Check for other labs. 12.Prognosis is guarded. 13. for urosepsis with metabolic encephalopathy. MMODL / IJN: [id number] /
[2021-10-25] MEDS: GABAPENTIN 100 MG CAP PO SCH (08:30)
[2021-10-25] MEDS: INSULIN ASPART (NovoLOG) 100 UNIT/ML VIAL SQ SCH ×3 (08:30→17:23)
[2021-10-25] MEDS: INSULIN DETEMIR (LEVEMIR) 100 UNIT/ML SYR SQ SCH (08:30)
[2021-10-25] MEDS: MULTIVITAMINS, THERA 1 EACH TAB PO SCH (08:30)
[2021-10-25] MEDS: metFORMIN 500 MG TAB PO SCH ×2 (08:31→21:29)
[2021-10-25] MEDS: ASPIRIN 81 MG PO SCH (08:31)
[2021-10-25] MEDS: CLOPIDOGREL 75 MG TAB PO SCH (08:31)
[2021-10-25] MEDS ORDERED: cefTRIAXone 1,000 MG VIAL (IM USE) IM SCH (09:00)
[2021-10-25 11:22] LABS: Glucose,Whole Blood 137 mg/dL (70-110)
[2021-10-25 12:28] LABS: Lyme IgG/IgM 0.06 Index
[2021-10-25 17:12] LABS: Glucose,Whole Blood 115 mg/dL (70-110)
[2021-10-25 20:19] LABS: Glucose,Whole Blood 106 mg/dL (70-110)
[2021-10-25] MEDS: lisinopriL 10 MG TAB PO SCH (21:29)
[2021-10-25] MEDS: MELATONIN 3 MG TABLET PO SCH (21:29)
[2021-10-25] MEDS: ATORVASTATIN 40 MG TAB PO SCH (21:29)
[2021-10-25] MEDS: risperiDONE 0.5 MG TAB PO SCH (21:29)
[2021-10-25] MEDS: MIRTAZAPINE 15 MG TAB PO SCH (21:29)
--- NOTE | 2021-10-25 23:34 | P.CONS ---
History of Present Illness - Reason for Consult Consult date: 10/25/21 Urosepsis Requesting physician: Mandeep Waters - Chief Complaint Mental status changes x one day - History of Present Illness Patient is a 76-year male presented to hospital last evening for evaluation of mental status changes and fever in this patient did have a chronic indwelling Alba catheter and apparently recently completed a course of oral Macrobid without any improvement, patient on presentation to the hospital was running a fever of 103.1 F patient was not hypoxic or need for supplemental oxygen patient did have normal white count with left shift kidney function was normal elevated lactic acid liver exams are normal patient did have a positive UA influenza and glover PCR was negative urine showing gram-negative blood cultures are pending patient did have a chest x-ray poor inspiration no heart failure a pulmonary consultation patient was started on Rocephin 1 g daily infectious disease was consulted for further management of antibiotic therapy most information has been obtained from review the chart and talking nursing staff as the patient himself however unable to provide any history Review of Systems Positive points has been mentioned in HPI complete review could not be obtained because of his underlying mental status Past Medical History Past Medical History: CVA/TIA, Dementia, Diabetes Mellitus, Hyperlipidemia, Hypertension, Prostate Disorder, Renal Disease Additional Past Medical History / Comment(s): IDDM type II, neuropathy bilateral hands/feet and legs, past "kidney problems", CVA with R sided weakness/aphasia/6 word vocabulary/spouse denies dysphagia, FALLS, vascular dementia, BPH, obstructive reflux/uropathy/has suprapubic catheter, UTIs, UTI with sepsis, enlarged heart, muscle weakness, anemia, insomnia. History of Any Multi-Drug Resistant Organisms: None Reported Past Surgical History: Tonsillectomy Additional Past Surgical History / Comment(s): Suprapubic catheter Past Anesthesia/Blood Transfusion Reactions: No Reported Reaction Past Psychological History: Anxiety, Depression Additional Psychological History / Comment(s): Mood disorder. Pt resides at [facility] Smoking Status: Never smoker Past Alcohol Use History: Unable to Obtain Past Drug Use History: Unable to Obtain - Past Family History Mother Family Medical History: Diabetes Mellitus Father History Unknown: Yes Medications and Allergies Home Medications Medication Instructions Recorded Confirmed Type lisinopriL [Zestril] 10 mg PO HS 10/20/20 10/24/21 History Melatonin 3 mg PO HS 12/29/20 10/24/21 History Mirtazapine 7.5 mg PO HS 12/29/20 10/24/21 History INSULIN ASPART (NovoLOG) [NovoLOG See Protocol SQ ACHS 04/06/21 10/24/21 History (formulary)] Insulin Detemir [Levemir Flextouch 30 units SQ DAILY 04/06/21 10/24/21 History Pen] Multivitamins, Thera [Multivitamin 1 tab PO DAILY 04/06/21 10/24/21 History (formulary)] metFORMIN HCL 500 mg PO BID 04/06/21 10/24/21 History Aspirin 81 mg PO DAILY tab 04/11/21 10/24/21 Rx Clopidogrel [Plavix] 75 mg PO DAILY tab 04/11/21 10/24/21 Rx Gabapentin [Neurontin] 100 mg PO DAILY #10 cap 04/11/21 10/24/21 Rx Acetaminophen [Tylenol] 650 mg PO Q6H PRN 10/24/21 10/24/21 History Atorvastatin Calcium [Lipitor] 40 mg PO HS 10/24/21 10/24/21 History HYDROcodone/APAP 5-325MG [[place] 1 tab PO Q6HR PRN 10/24/21 10/24/21 History 5-325] INSULIN ASPART (NovoLOG) [NovoLOG 10 unit SQ AC-TID 10/24/21 10/24/21 History (formulary)] risperiDONE [RisperDAL] 1.5 mg PO HS 10/24/21 10/24/21 History Allergies Allergy/AdvReac Type Severity Reaction Status Date / Time latex Allergy Rash/Hives Verified 10/24/21 19:54 Physical Exam Vitals: Vital Signs Temp Pulse Pulse Resp BP BP Pulse Ox 10/25/21 11:19 99.3 F 71 18 156/72 96 10/25/21 05:05 99.3 F 74 18 164/76 93 L 10/25/21 01:00 16 10/24/21 23:56 98.5 F 68 16 116/68 95 10/24/21 22:10 99.6 F 94 22 162/97 95 10/24/21 22:01 96 16 185/87 95 10/24/21 20:25 114 H 18 95 10/24/21 20:13 100 F H 10/24/21 18:13 103.1 F H 98 17 177/73 97 Intake and Output 10/24/21 10/25/21 10/25/21 22:59 06:59 14:59 Other: Voiding Method Indwelling Catheter Indwelling Catheter Weight 90.129 kg GENERAL DESCRIPTION: An elderly male lying in bed, no distress. No tachypnea or accessory muscle of respiration use. HEENT: Shows Pallor , no scleral icterus. Oral mucous membrane is dry. No pharyngeal erythema or thrush NECK: Trachea central, no thyromegaly. LUNGS: Unlabored breathing. Clear to auscultation anteriorly. No wheeze or crackle. HEART: S1, S2, regular rate and rhythm. No loud murmur ABDOMEN: Soft, no tenderness , guarding or rigidity, no organomegaly EXTREMITIES: No edema of feet. SKIN: No rash, no masses palpable. NEUROLOGICAL: The patient is sleepy lethargic orientation couldn't be determined Results CBC & Chem 7: 10/30/21 05:03 10/30/21 05:03 Labs: Abnormal Lab Results - Last 24 Hours (Table) 10/24/21 10/24/21 10/24/21 Range/Units 18:25 18:25 18:25 RBC 4.00 L (4.30-5.90) m/uL Hgb 11.3 L (13.0-17.5) gm/dL Hct 35.4 L (39.0-53.0) % Neutrophils # 9.4 H (1.3-7.7) k/uL Lymphocytes # 0.3 L (1.0-4.8) k/uL Sodium 133 L (137-145) mmol/L Glucose 149 H (74-99) mg/dL POC Glucose (mg/dL) (70-110) mg/dL Plasma Lactic Acid Ezekiel (0.7-2.0) mmol/L Magnesium 1.5 L (1.6-2.3) mg/dL Iron (65-175) ug/dL % Saturation (15.00-50.00) Transferrin (204.0-354.0) mg/dL Urine Protein 1+ H (Negative) Urine Blood Small H (Negative) Ur Leukocyte Esterase Large H (Negative) Urine RBC 35 H (0-5) /hpf Urine WBC 86 H (0-5) /hpf Amorphous Sediment Rare H (None) /hpf Urine Bacteria Many H (None) /hpf Urine Mucus Occasional H (None) /hpf 10/24/21 10/24/21 10/25/21 Range/Units 18:25 22:28 07:01 RBC (4.30-5.90) m/uL Hgb (13.0-17.5) gm/dL Hct (39.0-53.0) % Neutrophils # (1.3-7.7) k/uL Lymphocytes # (1.0-4.8) k/uL Sodium (137-145) mmol/L Glucose (74-99) mg/dL POC Glucose (mg/dL) 138 H (70-110) mg/dL Plasma Lactic Acid Ezekiel 2.6 H* (0.7-2.0) mmol/L Magnesium (1.6-2.3) mg/dL Iron 15 L (65-175) ug/dL % Saturation 5.60 L (15.00-50.00) Transferrin 195.0 L (204.0-354.0) mg/dL Urine Protein (Negative) Urine Blood (Negative) Ur Leukocyte Esterase (Negative) Urine RBC (0-5) /hpf Urine WBC (0-5) /hpf Amorphous Sediment (None) /hpf Urine Bacteria (None) /hpf Urine Mucus (None) /hpf 10/25/21 Range/Units 11:21 RBC (4.30-5.90) m/uL Hgb (13.0-17.5) gm/dL Hct (39.0-53.0) % Neutrophils # (1.3-7.7) k/uL Lymphocytes # (1.0-4.8) k/uL Sodium (137-145) mmol/L Glucose (74-99) mg/dL POC Glucose (mg/dL) 137 H (70-110) mg/dL Plasma Lactic Acid Ezekiel (0.7-2.0) mmol/L Magnesium (1.6-2.3) mg/dL Iron (65-175) ug/dL % Saturation (15.00-50.00) Transferrin (204.0-354.0) mg/dL Urine Protein (Negative) Urine Blood (Negative) Ur Leukocyte Esterase (Negative) Urine RBC (0-5) /hpf Urine WBC (0-5) /hpf Amorphous Sediment (None) /hpf Urine Bacteria (None) /hpf Urine Mucus (None) /hpf Microbiology - Last 24 Hours (Table) 10/24/21 18:25 Urine Culture - Preliminary Urine,Voided Assessment and Plan (1) Urinary tract infection Status: Acute Code(s): N39.0 - URINARY TRACT INFECTION, SITE NOT SPECIFIED SNOMED Code(s): 79245520 Plan: 1patient presented to hospital with a fever mental status changes likely secondary to catheter associated urine tract infection in this patient who did have chronic indwelling Alba catheter failing outpatient oral Macrobid therapy. 2patient to continue with Rocephin 1 g daily in view of resolution of his fever. 3gentle IV fluid. We will follow on clinical condition and cultures to further adjust medication if needed Thank you for this consultation will follow this patient along with you Time with Patient: Greater than 30
[2021-10-26 07:21] LABS: Glucose,Whole Blood 105 mg/dL (70-110)
--- NOTE | 2021-10-26 07:21 | PN ---
PROGRESS NOTE 76-year-old white male. He is on Rocephin for urosepsis. Waiting for urine culture to come back. Dr. Etienne has seen him for medical consultation. Vital signs stable. Cardiovascular S1, S2. Lungs clear. GI soft. Hematologic: Negative Homans. T-max is 103. Remains on Rocephin. Wait for Dr. Etienne to evaluate. Rule out COVID. Treat for UTI. Pyelonephritis. PROGNOSIS: Guarded. Follow up as an outpatient. Diabetes. Continue current treatment. Prognosis guarded. Follow up in next 24 to 48 hours. MMODL / IJN: [id number] /
[2021-10-26] MEDS: INSULIN ASPART (NovoLOG) 100 UNIT/ML VIAL SQ SCH ×3 (08:25→17:53)
[2021-10-26] MEDS: ASPIRIN 81 MG PO SCH (08:26)
[2021-10-26] MEDS: INSULIN DETEMIR (LEVEMIR) 100 UNIT/ML SYR SQ SCH (08:26)
[2021-10-26] MEDS: metFORMIN 500 MG TAB PO SCH ×2 (08:26→20:40)
[2021-10-26] MEDS: GABAPENTIN 100 MG CAP PO SCH (08:26)
[2021-10-26] MEDS: MULTIVITAMINS, THERA 1 EACH TAB PO SCH (08:26)
[2021-10-26] MEDS: CLOPIDOGREL 75 MG TAB PO SCH (08:26)
[2021-10-26 11:50] LABS: Glucose,Whole Blood 171 mg/dL (70-110)
[2021-10-26 16:55] LABS: Glucose,Whole Blood 124 mg/dL (70-110)
--- NOTE | 2021-10-26 20:09 | P.PN ---
Progress Note - Text Progress Note Date: 10/26/21 I'm rounding for Dr. Mandeep Waters today Interval history: October 26: As per Dr. block:Patient is a 76-year male presented to hospital last evening for evaluation of mental status changes and fever in this patient did have a chronic indwelling Alba catheter and apparently recently completed a course of oral Macrobid without any improvement, patient on presentation to the hospital was running a fever of 103.1 F patient was not hypoxic or need for supplemental oxygen patient did have normal white count with left shift kidney function was normal elevated lactic acid liver exams are normal patient did have a positive UA influenza and glover PCR was negative urine showing gram-negative blood cultures are pending patient did have a chest x-ray poor inspiration no heart failure a pulmonary consultation patient was started on Rocephin Patient rather tired sleepy. Alba catheter. He did some breakfast and lunch today. On IV ceftriaxone. Active Medications Acetaminophen (Acetaminophen Tab 325 Mg Tab) 650 mg PO Q6HR PRN PRN Reason: Mild Pain or Fever > 100.5 Hydrocodone Bitart/Acetaminophen (Hydrocodone/Apap 5-325mg 1 Each Tab) 1 each PO Q6HR PRN PRN Reason: Pain Aspirin (Aspirin 81 Mg) 81 mg PO DAILY ON LICENSE OF [facility] Last Admin: 10/26/21 08:26 Dose: 81 mg Atorvastatin Calcium (Atorvastatin 40 Mg Tab) 40 mg PO HS ON LICENSE OF [facility] Last Admin: 10/25/21 21:29 Dose: 40 mg Clopidogrel Bisulfate (Clopidogrel 75 Mg Tab) 75 mg PO DAILY ON LICENSE OF [facility] Last Admin: 10/26/21 08:26 Dose: 75 mg Gabapentin (Gabapentin 100 Mg Cap) 100 mg PO DAILY ON LICENSE OF [facility] Last Admin: 10/26/21 08:26 Dose: 100 mg Ceftriaxone Sodium 1 gm/ (Sodium Chloride) 50 mls @ 100 mls/hr IVPB Q24HR ON LICENSE OF [facility]; Protocol Last Admin: 10/26/21 08:25 Dose: 100 mls/hr Insulin Aspart (Insulin Aspart (Novolog) 100 Unit/Ml Vial) 10 unit SQ AC-TID ON LICENSE OF [facility] Last Admin: 10/26/21 17:53 Dose: 10 unit Insulin Detemir (Insulin Detemir (Levemir) 100 Unit/Ml Syr) 30 unit SQ DAILY@0700 ON LICENSE OF [facility] Last Admin: 10/26/21 08:26 Dose: 30 unit Lisinopril (Lisinopril 10 Mg Tab) 10 mg PO [facility] Last Admin: 10/25/21 21: Dose: 10 mg Melatonin (Melatonin 3 Mg Tablet) 3 mg PO [facility] Last Admin: 10/25/21: Dose: 3 mg Metformin HCl (Metformin 500 Mg Tab) 500 mg PO BID ON LICENSE OF [facility] Last Admin: 10/26/21 08:26 Dose: 500 mg Mirtazapine (Mirtazapine 15 Mg Tab) 7.5 mg PO [facility] Last Admin: 10/25/21: Dose: 7.5 mg Multivitamins (Multivitamins, Thera 1 Each Tab) 1 each PO DAILY ON LICENSE OF [facility] Last Admin: 10/26/21 08: Dose: 1 each Naloxone HCl (Naloxone 0.4 Mg/Ml 1 Ml Vial) 0.2 mg IV Q2M PRN PRN Reason: Opioid Reversal Risperidone (Risperidone 0.5 Mg Tab) 1.5 mg PO [facility] Last Admin: 10/25/21: Dose: 1.5 mg On examination: VITAL SIGNS: [Afebrile, 58, 16, 136/59, 99% room air] GENERAL APPEARANCE: Laying in bed, sleepy tired HEENT: Normal external appearance of nose and ear. Oral cavity normal EYES: Pupils equal. Conjunctiva normal. NECK: JVD not raised. Mass not palpable. RESPIRATORY: Respiratory effort normal. Lungs clear to auscultation. CARDIOVASCULAR: First and second sounds normal. No edema. ABDOMEN: Soft. Liver and spleen not palpable. No tenderness. No mass palpable. PSYCHIATRY: Sleepy tired, unable to assess . INVESTIGATIONS, reviewed in the clinical context: Lives screen IgG and IgM negative COVID 19/influenza type A/influenza type B: All negative Chest x-ray: Unremarkable Urine culture growing gram-negative bacilli Assessment and plan: -Acute metabolic encephalopathy and delirium from sepsis from UTI -Acute UTI with cystitis secondary to chronic suprapubic catheter, from gram- negative bacilli IV ceftriaxone -Late onset dementia -Diabetes mellitus type 2, chronically on insulin Follow Accu-Cheks and sliding scale -Hyperlipidemia Lipitor -Essential hypertension Zestril -Diabetic peripheral neuropathy Neurontin -CVA with chronic dysarthria Aspirin, Lipitor -Anxiety depression, mood disorder Risperdal 1.5 mg daily at bedtime, mirtazapine 7.5 mg by mouth daily at bedtime -Chronic insomnia Melatonin 3 mg daily at bedtime
[2021-10-26 20:18] LABS: Glucose,Whole Blood 140 mg/dL (70-110)
[2021-10-26] MEDS: MELATONIN 3 MG TABLET PO SCH (20:40)
[2021-10-26] MEDS: ATORVASTATIN 40 MG TAB PO SCH (20:40)
[2021-10-26] MEDS: lisinopriL 10 MG TAB PO SCH (20:40)
[2021-10-26] MEDS: risperiDONE 0.5 MG TAB PO SCH (20:41)
[2021-10-26] MEDS: MIRTAZAPINE 15 MG TAB PO SCH (20:41)
[2021-10-27 07:07] LABS: Glucose,Whole Blood 128 mg/dL (70-110)
[2021-10-27] MEDS: ASPIRIN 81 MG PO SCH (08:00)
[2021-10-27] MEDS: metFORMIN 500 MG TAB PO SCH ×2 (08:00→20:46)
[2021-10-27] MEDS: MULTIVITAMINS, THERA 1 EACH TAB PO SCH (08:00)
[2021-10-27] MEDS: INSULIN ASPART (NovoLOG) 100 UNIT/ML VIAL SQ SCH ×4 (08:01→18:09)
[2021-10-27] MEDS: CLOPIDOGREL 75 MG TAB PO SCH (08:01)
[2021-10-27] MEDS: GABAPENTIN 100 MG CAP PO SCH (08:02)
[2021-10-27] MEDS: INSULIN DETEMIR (LEVEMIR) 100 UNIT/ML SYR SQ SCH (09:53)
[2021-10-27 10:50] LABS: Basophils # (A) 0.04 X 10*3/uL (0.00-0.10); Basophils % (A) 0.4 %; Eosinophils % (A) 11.1 %; HCT 29.3 % (39.6-50.0); Immature Grans, Automated 0.3 %; Lymphocytes # (A) 2.22 X 10*3/uL (0.90-5.00); Lymphocytes % (A) 22.5 %; MCH 27.2 pg (27.0-32.0); MCHC 30.7 g/dL (32.0-37.0); MCV 88.5 fL (80.0-97.0); Mean Platelet Volume 11.5 fL (9.5-12.2); Monocytes # (A) 1.03 X 10*3/uL (0.20-1.00); Monocytes % (A) 10.4 %; NRBC Per 100 WBC 0 /100 WBCS (0.0-0.0); Neutrophils # (A) 5.46 X 10*3/uL (1.80-7.70); Neutrophils % (A) 55.3 %; Platelet Count 180 X 10*3/uL (140-440); RBC 3.31 X 10*6/uL (4.40-5.60); RDW 13.6 % (11.5-14.5); WBC 9.88 X 10*3/uL (4.50-10.00)
[2021-10-27 10:57] LABS: ALT 31 U/L (10-49); AST 15 U/L (14-35); African American GFR (CKD) 85.3 (60.0-200.0); Albumin 2.9 g/dL (3.8-4.9); Albumin/Globulin Ratio 1.16 (1.60-3.17); Alkaline Phosphatase 75 U/L (41-126); BUN/Creat Ratio 16.65 Ratio (12.00-20.00); Blood Urea Nitrogen 16.4 mg/dL (9.0-27.0); Calcium 8.3 mg/dL (8.7-10.3); Carbon Dioxide 19.6 mmol/L (20.0-27.5); Chloride 107 mmol/L (96-109); Globulin 2.5 g/dL (1.6-3.3); Glucose 126 mg/dL (70-110); Non-African American GFR(CKD) 73.6 (60.0-200.0); Potassium 3.7 mmol/L (3.5-5.5); Sodium 138 mmol/L (135-145); Total Bilirubin <0.15 mg/dL (0.30-1.20); Total Protein 5.4 g/dL (6.2-8.2)
[2021-10-27 11:10] LABS: Glucose,Whole Blood 141 mg/dL (70-110)
--- NOTE | 2021-10-27 15:05 | P.PN ---
Subjective Progress Note Date: 10/26/21 Principal diagnosis: Catheter associated tract infection Patient is a 76 year old male with a past medical history taken for urinary retention with indwelling Alba catheter recently failing outpatient oral Macrobid therapy admitted to the hospital with mental status changes and fever concerning for catheter associated UTI. On today's evaluation that is 10/26/2021, patient did have a low-grade fever 100.4 F last night is afebrile since then, the patient is currently breathing comfortably on room air is slightly sleepy lethargic and unable to provide any history no vomiting or diarrhea was reported by the nursing staff Objective - Vital Signs Vital signs: Vital Signs Temp 98.3 F 10/26/21 12:44 Pulse 57 L 10/26/21 12:44 Resp 16 10/26/21 12:44 BP 136/59 10/26/21 12:44 Pulse Ox 99 10/26/21 12:44 FiO2 Intake & Output 10/25/21 10/26/21 10/26/21 18:59 06:59 18:59 Intake Total 60 Output Total 700 500 Balance -700 -440 Intake: Oral 60 Output: Urine 700 500 Other: Voiding Method Indwelling Catheter Indwelling Catheter Indwelling Catheter - Exam GENERAL DESCRIPTION: Elderly male lying in bed, no distress. No tachypnea or accessory muscle of respiration use. LUNGS: Unlabored breathing. Clear to auscultation anteriorly. No wheeze or crackle . HEART: S1, S2, regular rate and rhythm. No loud murmur ABDOMEN: Soft, no tenderness , guarding or rigidity, no organomegaly EXTREMITIES: No edema of feet. - Labs CBC & Chem 7: 10/27/21 06:36 10/27/21 06:36 Labs: Abnormal Lab Results - Last 24 Hours (Table) 10/25/21 10/26/21 Range/Units 17:08 11:48 POC Glucose (mg/dL) 115 H 171 H (70-110) mg/dL Microbiology - Last 24 Hours (Table) 10/24/21 18:25 Urine Culture - Preliminary Urine,Voided Gram Neg Bacilli 10/24/21 18:32 Blood Culture - Preliminary Blood No Growth after 24 hours 10/24/21 18:24 Blood Culture - Preliminary Blood No Growth after 24 hours Assessment and Plan (1) Urinary tract infection Current Visit: Yes Status: Acute Code(s): N39.0 - URINARY TRACT INFECTION, SITE NOT SPECIFIED SNOMED Code(s): 65628375 Plan: 1patient presented to hospital with a fever mental status changes likely secondary to catheter associated urine tract infection in this patient who did have chronic indwelling Alba catheter failing outpatient oral Macrobid therapy. 2RN has been advised to change her catheter and obtain urine culture from the new Alba. 3continue with Rocephin 1 g daily while waiting for the culture to finalize Time with Patient: Less than 30
[2021-10-27 15:23] VITALS: BMI 28.5
[2021-10-27 17:18] LABS: Glucose,Whole Blood 111 mg/dL (70-110)
[2021-10-27 20:15] LABS: Glucose,Whole Blood 138 mg/dL (70-110)
[2021-10-27] MEDS: MIRTAZAPINE 15 MG TAB PO SCH (20:45)
[2021-10-27] MEDS: MELATONIN 3 MG TABLET PO SCH (20:45)
[2021-10-27] MEDS: ATORVASTATIN 40 MG TAB PO SCH (20:46)
[2021-10-27] MEDS: risperiDONE 0.5 MG TAB PO SCH (20:46)
[2021-10-27] MEDS: lisinopriL 10 MG TAB PO SCH (20:46)
[2021-10-28 06:56] LABS: Glucose,Whole Blood 163 mg/dL (70-110)
[2021-10-28] MEDS: INSULIN ASPART (NovoLOG) 100 UNIT/ML VIAL SQ SCH ×3 (08:06→17:49)
[2021-10-28] MEDS: INSULIN DETEMIR (LEVEMIR) 100 UNIT/ML SYR SQ SCH (08:06)
[2021-10-28] MEDS: metFORMIN 500 MG TAB PO SCH ×2 (09:12→20:36)
[2021-10-28] MEDS: CLOPIDOGREL 75 MG TAB PO SCH (09:12)
[2021-10-28] MEDS: ASPIRIN 81 MG PO SCH (09:12)
[2021-10-28] MEDS: GABAPENTIN 100 MG CAP PO SCH (09:13)
[2021-10-28] MEDS: MULTIVITAMINS, THERA 1 EACH TAB PO SCH (09:13)
[2021-10-28 10:59] LABS: Glucose,Whole Blood 193 mg/dL (70-110)
[2021-10-28 17:11] LABS: Glucose,Whole Blood 142 mg/dL (70-110)
--- NOTE | 2021-10-28 18:59 | PN ---
PROGRESS NOTE DATE OF SERVICE: 10/27/2021 This is a white male with urinary tract infection. Waiting for urine culture to come back. His blood cultures are negative. He had Gram-negative bacilli in his urine cultures; we do not have the final pathology back yet. antibiotics. Remains on IV antibiotics. Cardiovascular S1-S2. Lungs clear. GI soft. Hematology negative Homans. ASSESSMENT: 1. Urinary tract infection. 2. Altered mental status secondary to urinary tract infection. 3. Acute on chronic anemia. 4. Mental status changes. 5. Metabolic encephalopathy secondary to urinary tract infection. Wait for final culture to come back. Otherwise continue current care. MMODL / IJN: [id number] /
[2021-10-28 19:58] LABS: Glucose,Whole Blood 102 mg/dL (70-110)
[2021-10-28] MEDS: HYDROcodone/APAP 5-325MG 1 EACH TAB PO PRN (20:35)
[2021-10-28] MEDS: lisinopriL 10 MG TAB PO SCH (20:36)
[2021-10-28] MEDS: ATORVASTATIN 40 MG TAB PO SCH (20:36)
[2021-10-28] MEDS: MELATONIN 3 MG TABLET PO SCH (20:36)
[2021-10-28] MEDS: risperiDONE 0.5 MG TAB PO SCH (20:37)
[2021-10-28] MEDS: MIRTAZAPINE 15 MG TAB PO SCH (20:38)
[2021-10-29 07:09] LABS: Glucose,Whole Blood 109 mg/dL (70-110)
[2021-10-29] MEDS: INSULIN ASPART (NovoLOG) 100 UNIT/ML VIAL SQ SCH ×3 (08:33→17:15)
[2021-10-29] MEDS: metFORMIN 500 MG TAB PO SCH ×2 (08:34→20:59)
[2021-10-29] MEDS: INSULIN DETEMIR (LEVEMIR) 100 UNIT/ML SYR SQ SCH (08:34)
[2021-10-29] MEDS: GABAPENTIN 100 MG CAP PO SCH (08:34)
[2021-10-29] MEDS: MULTIVITAMINS, THERA 1 EACH TAB PO SCH (08:34)
[2021-10-29] MEDS: ASPIRIN 81 MG PO SCH (08:34)
[2021-10-29] MEDS: CLOPIDOGREL 75 MG TAB PO SCH (08:34)
[2021-10-29] MEDS: HYDROcodone/APAP 5-325MG 1 EACH TAB PO PRN ×3 (10:18→23:49)
[2021-10-29 11:12] LABS: Glucose,Whole Blood 234 mg/dL (70-110)
--- NOTE | 2021-10-29 16:43 | P.PN ---
Subjective Progress Note Date: 10/27/21 Principal diagnosis: Catheter associated tract infection Patient is a 76 year old male with a past medical history taken for urinary retention with indwelling Alba catheter recently failing outpatient oral Macrobid therapy admitted to the hospital with mental status changes and fever concerning for catheter associated UTI. On today's evaluation that is 10/27/2021, patient is afebrile today, the patient is breathing comfortably on room air, patient did not provide any history no vomiting or diarrhea was reported by the nursing staff Objective - Vital Signs Vital signs: Vital Signs Temp 98.2 F 10/27/21 07:00 Pulse 59 L 10/27/21 07:00 Resp 16 10/27/21 07:00 BP 123/73 10/27/21 07:00 Pulse Ox 94 L 10/27/21 07:00 FiO2 Intake & Output 10/26/21 10/27/21 10/27/21 18:59 06:59 18:59 Intake Total 1630 Output Total 451 750 Balance 1179 -750 Intake: Intake, IV Titration 50 Amount cefTRIAXone 1 gm In 50 Sodium Chloride 0.9% 50 ml @ 100 mls/hr IVPB Q24HR [facility] Rx#:[id number] Oral 1580 Output: Urine 450 750 Stool 1 Other: Voiding Method Indwelling Catheter Indwelling Catheter Indwelling Catheter # Voids 2 # Bowel Movements 3 - Exam GENERAL DESCRIPTION: Elderly male lying in bed, no distress. No tachypnea or accessory muscle of respiration use. LUNGS: Unlabored breathing. Clear to auscultation anteriorly. No wheeze or crackle . HEART: S1, S2, regular rate and rhythm. No loud murmur ABDOMEN: Soft, no tenderness , guarding or rigidity, no organomegaly EXTREMITIES: No edema of feet. - Labs CBC & Chem 7: 10/27/21 06:36 10/27/21 06:36 Labs: Abnormal Lab Results - Last 24 Hours (Table) 10/26/21 10/26/21 10/26/21 Range/Units 11:48 16:54 20:16 POC Glucose (mg/dL) 171 H 124 H 140 H (70-110) mg/dL 10/27/21 Range/Units 07:06 POC Glucose (mg/dL) 128 H (70-110) mg/dL Microbiology - Last 24 Hours (Table) 10/24/21 18:32 Blood Culture - Preliminary Blood No Growth after 48 hours 10/24/21 18:24 Blood Culture - Preliminary Blood No Growth after 48 hours Assessment and Plan (1) Urinary tract infection Current Visit: Yes Status: Acute Code(s): N39.0 - URINARY TRACT INFECTION, SITE NOT SPECIFIED SNOMED Code(s): 22771340 Plan: 1patient presented to hospital with a fever mental status changes likely secondary to catheter associated urine tract infection in this patient who did have chronic indwelling Alba catheter failing outpatient oral Macrobid therapy. 2patient Alba catheter has been changed repeat UA has been obtained 3patient to continue with Rocephin 1 g daily while waiting for the culture to finalize Time with Patient: Less than 30
--- NOTE | 2021-10-29 16:45 | P.PN ---
Subjective Progress Note Date: 10/28/21 Principal diagnosis: Catheter associated tract infection Patient is a 76 year old male with a past medical history taken for urinary retention with indwelling Alba catheter recently failing outpatient oral Macrobid therapy admitted to the hospital with mental status changes and fever concerning for catheter associated UTI. On today's evaluation that is 10/28/2021, patient remains to be afebrile, the patient is breathing comfortably on room air, patient is not a good historian, no vomiting or diarrhea was reported by the nursing staff Objective - Vital Signs Vital signs: Vital Signs Temp 98 F 10/28/21 12:43 Pulse 57 L 10/28/21 12:43 Resp 16 10/28/21 12:43 BP 149/57 10/28/21 12:43 Pulse Ox 97 10/28/21 12:43 FiO2 Intake & Output 10/27/21 10/28/21 10/28/21 18:59 06:59 18:59 Output Total 700 1400 450 Balance -700 -1400 -450 Weight 90.129 kg Output: Urine 700 1400 450 Suprapubic 400 Stool 0 Other: Voiding Method Indwelling Catheter Indwelling Catheter Indwelling Catheter # Voids 0 # Bowel Movements 2 0 1 - Exam GENERAL DESCRIPTION: Elderly male lying in bed, no distress. No tachypnea or accessory muscle of respiration use. LUNGS: Unlabored breathing. Clear to auscultation anteriorly. No wheeze or crackle . HEART: S1, S2, regular rate and rhythm. No loud murmur ABDOMEN: Soft, no tenderness , guarding or rigidity, no organomegaly EXTREMITIES: No edema of feet. - Labs CBC & Chem 7: 10/27/21 06:36 10/27/21 06:36 Labs: Abnormal Lab Results - Last 24 Hours (Table) 10/27/21 10/27/21 10/28/21 Range/Units 17:16 20:13 06:54 POC Glucose (mg/dL) 111 H 138 H 163 H (70-110) mg/dL 10/28/21 Range/Units 10:58 POC Glucose (mg/dL) 193 H (70-110) mg/dL Microbiology - Last 24 Hours (Table) 10/24/21 18:24 Blood Culture - Preliminary Blood No Growth after 72 hours 10/24/21 18:32 Blood Culture - Preliminary Blood No Growth after 72 hours Assessment and Plan (1) Urinary tract infection Current Visit: Yes Status: Acute Code(s): N39.0 - URINARY TRACT INFECTION, SITE NOT SPECIFIED SNOMED Code(s): 37187002 Plan: 1patient presented to hospital with a fever mental status changes likely secondary to catheter associated urine tract infection in this patient who did have chronic indwelling Alba catheter failing outpatient oral Macrobid therapy. 2patient Alba catheter has been changed 3patient seemed to showing clinical improvement as fever has resolved urinary showing gram-negative ID sensitivities pending, patient to continue with Rocephin 1 g daily while waiting for the culture to finalize Time with Patient: Less than 30
--- NOTE | 2021-10-29 16:46 | P.PN ---
Subjective Progress Note Date: 10/29/21 Principal diagnosis: Catheter associated tract infection Patient is a 76 year old male with a past medical history taken for urinary retention with indwelling Alba catheter recently failing outpatient oral Macrobid therapy admitted to the hospital with mental status changes and fever concerning for catheter associated UTI. On today's evaluation that is 10/29/2021, patient continues to be afebrile, the patient is breathing comfortably on room air, patient is not a good historian as he did not answer any question and no vomiting or diarrhea was reported by the nursing staff Objective - Vital Signs Vital signs: Vital Signs Temp 97.5 F L 10/29/21 11:29 Pulse 73 10/29/21 11:29 Resp 20 10/29/21 11:29 BP 146/78 10/29/21 11:29 Pulse Ox 95 10/29/21 11:29 FiO2 Intake & Output 10/28/21 10/29/21 10/29/21 18:59 06:59 18:59 Intake Total 2170 Output Total 750 1700 1000 Balance -750 470 -1000 Intake: Oral 2170 Output: Urine 750 1700 1000 Suprapubic 1700 Stool 0 Other: Voiding Method Indwelling Catheter Indwelling Catheter Indwelling Catheter # Voids 0 # Bowel Movements 1 3 - Exam GENERAL DESCRIPTION: Elderly male lying in bed, no distress. No tachypnea or accessory muscle of respiration use. LUNGS: Unlabored breathing. Clear to auscultation anteriorly. No wheeze or crackle . HEART: S1, S2, regular rate and rhythm. No loud murmur ABDOMEN: Soft, no tenderness , guarding or rigidity, no organomegaly EXTREMITIES: No edema of feet. - Labs CBC & Chem 7: 10/27/21 06:36 10/27/21 06:36 Labs: Abnormal Lab Results - Last 24 Hours (Table) 10/28/21 10/29/21 Range/Units 17:10 11:10 POC Glucose (mg/dL) 142 H 234 H (70-110) mg/dL Microbiology - Last 24 Hours (Table) 10/24/21 18:32 Blood Culture - Preliminary Blood No Growth after 96 hours 10/24/21 18:24 Blood Culture - Preliminary Blood No Growth after 96 hours 10/24/21 18:25 Urine Culture - Final Urine,Voided Providencia stuartii Proteus mirabilis Assessment and Plan (1) Urinary tract infection Current Visit: Yes Status: Acute Code(s): N39.0 - URINARY TRACT INFECTION, SITE NOT SPECIFIED SNOMED Code(s): 52986061 Plan: 1patient presented to hospital with a fever mental status changes likely secon keeley to catheter associated urine tract infection in this patient who did have chronic indwelling Alba catheter failing outpatient oral Macrobid therapy. 2 patient seemed to showing clinical improvement as fever has resolved urinary culture had been finalized Proteus and providencia for the patient is covered with Rocephin 1 g daily which will be continued while inpatient Time with Patient: Less than 30
[2021-10-29 17:02] LABS: Glucose,Whole Blood 182 mg/dL (70-110)
[2021-10-29 20:48] LABS: Glucose,Whole Blood 149 mg/dL (70-110)
[2021-10-29] MEDS: lisinopriL 10 MG TAB PO SCH (20:58)
[2021-10-29] MEDS: MIRTAZAPINE 15 MG TAB PO SCH (20:58)
[2021-10-29] MEDS: risperiDONE 0.5 MG TAB PO SCH (20:59)
[2021-10-29] MEDS: ATORVASTATIN 40 MG TAB PO SCH (20:59)
[2021-10-29] MEDS: MELATONIN 3 MG TABLET PO SCH (20:59)
--- NOTE | 2021-10-30 03:41 | PN ---
PROGRESS NOTE 76-year-old white male with urinary retention with a Alba catheter with mental status changes, came in with UTI. He has a drug-resistant Proteus infection. Temperature 97.5, pulse 72, respiration 18 to 20, blood pressure 140s over 70s. O2 95%. Cardiovascular S1, S2. Lungs clear. GI is soft. Acute on chronic anemia, discharge on Rocephin 1 g daily and will be continued while inpatient. Possible discharge home Sunday. MMODL / IJN: [id number] /
[2021-10-30 07:47] LABS: Glucose,Whole Blood 200 mg/dL (70-110)
[2021-10-30] MEDS: ASPIRIN 81 MG PO SCH (08:45)
[2021-10-30] MEDS: metFORMIN 500 MG TAB PO SCH ×2 (08:45→20:18)
[2021-10-30] MEDS: HYDROcodone/APAP 5-325MG 1 EACH TAB PO PRN ×2 (08:45→18:04)
[2021-10-30] MEDS: GABAPENTIN 100 MG CAP PO SCH (08:45)
[2021-10-30] MEDS: MULTIVITAMINS, THERA 1 EACH TAB PO SCH (08:45)
[2021-10-30] MEDS: INSULIN DETEMIR (LEVEMIR) 100 UNIT/ML SYR SQ SCH (08:46)
[2021-10-30] MEDS: CLOPIDOGREL 75 MG TAB PO SCH (08:46)
[2021-10-30] MEDS: INSULIN ASPART (NovoLOG) 100 UNIT/ML VIAL SQ SCH ×3 (08:46→18:04)
[2021-10-30 09:36] LABS: Basophils # (A) 0.09 X 10*3/uL (0.00-0.10); Basophils % (A) 0.9 %; Eosinophils # (A) 1.36 X 10*3/uL (0.04-0.35); Eosinophils % (A) 12.9 %; HCT 31.3 % (39.6-50.0); HGB 9.9 g/dL (13.0-17.0); Immature Grans, Automated 0.4 %; Lymphocytes # (A) 2.65 X 10*3/uL (0.90-5.00); Lymphocytes % (A) 25.2 %; MCH 27.4 pg (27.0-32.0); MCHC 31.6 g/dL (32.0-37.0); MCV 86.7 fL (80.0-97.0); Mean Platelet Volume 10.9 fL (9.5-12.2); Monocytes # (A) 0.84 X 10*3/uL (0.20-1.00); NRBC Per 100 WBC 0 /100 WBCS (0.0-0.0); Neutrophils # (A) 5.55 X 10*3/uL (1.80-7.70); Neutrophils % (A) 52.6 %; Platelet Count 262 X 10*3/uL (140-440); RBC 3.61 X 10*6/uL (4.40-5.60); RDW 13.2 % (11.5-14.5); WBC 10.53 X 10*3/uL (4.50-10.00)
[2021-10-30 10:23] LABS: ALT 27 U/L (10-49); AST 14 U/L (14-35); African American GFR (CKD) 87.3 (60.0-200.0); Albumin 3.4 g/dL (3.8-4.9); Albumin/Globulin Ratio 1.09 (1.60-3.17); Alkaline Phosphatase 101 U/L (41-126); BUN/Creat Ratio 21.84 Ratio (12.00-20.00); Blood Urea Nitrogen 21.1 mg/dL (9.0-27.0); Carbon Dioxide 23.4 mmol/L (20.0-27.5); Chloride 103 mmol/L (96-109); Globulin 3.1 g/dL (1.6-3.3); Glucose 150 mg/dL (70-110); Non-African American GFR(CKD) 75.4 (60.0-200.0); Potassium 4.4 mmol/L (3.5-5.5); Sodium 138 mmol/L (135-145); Total Bilirubin <0.15 mg/dL (0.30-1.20); Total Protein 6.5 g/dL (6.2-8.2)
[2021-10-30 11:35] LABS: Glucose,Whole Blood 193 mg/dL (70-110)
--- NOTE | 2021-10-30 12:31 | PN ---
PROGRESS NOTE 76-year-old white male who was admitted with UTI with metabolic encephalopathy on top of dementia. He has drug-resistant organisms with Proteus. Waiting for long-term antibiotics to be set in place by Dr. Etienne. Cardiovascular S1, S2. Lungs clear. GI soft. Psych: Pleasantly confused. White count 9.8, hemoglobin is 9, BUN 16, creatinine 1.0. Urinary tract infection altered mental status, metabolic encephalopathy, on top of dementia. Wait for long-term IV antibiotics per Dr. Etienne. Prognosis guarded. Continue current treatment. MMODL / IJN: [id number] /
[2021-10-30 17:06] LABS: Glucose,Whole Blood 151 mg/dL (70-110)
[2021-10-30 20:11] LABS: Glucose,Whole Blood 183 mg/dL (70-110)
[2021-10-30] MEDS: MELATONIN 3 MG TABLET PO SCH (20:18)
[2021-10-30] MEDS: MIRTAZAPINE 15 MG TAB PO SCH (20:18)
[2021-10-30] MEDS: lisinopriL 10 MG TAB PO SCH (20:18)
[2021-10-30] MEDS: ATORVASTATIN 40 MG TAB PO SCH (20:18)
[2021-10-30] MEDS: risperiDONE 0.5 MG TAB PO SCH (20:19)
[2021-10-31 07:01] LABS: Glucose,Whole Blood 161 mg/dL (70-110)
[2021-10-31] MEDS: INSULIN ASPART (NovoLOG) 100 UNIT/ML VIAL SQ SCH ×3 (08:39→16:59)
[2021-10-31] MEDS: HYDROcodone/APAP 5-325MG 1 EACH TAB PO PRN (08:40)
[2021-10-31] MEDS: INSULIN DETEMIR (LEVEMIR) 100 UNIT/ML SYR SQ SCH (08:40)
[2021-10-31] MEDS: ASPIRIN 81 MG PO SCH (08:40)
[2021-10-31] MEDS: GABAPENTIN 100 MG CAP PO SCH (08:40)
[2021-10-31] MEDS: metFORMIN 500 MG TAB PO SCH ×2 (08:41→20:36)
[2021-10-31] MEDS: MULTIVITAMINS, THERA 1 EACH TAB PO SCH (08:41)
[2021-10-31] MEDS: CLOPIDOGREL 75 MG TAB PO SCH (08:41)
--- NOTE | 2021-10-31 08:44 | P.PN ---
Subjective Progress Note Date: 10/30/21 Principal diagnosis: Catheter associated tract infection Patient is a 76 year old male with a past medical history taken for urinary retention with indwelling Alba catheter recently failing outpatient oral Macrobid therapy admitted to the hospital with mental status changes and fever concerning for catheter associated UTI. On today's evaluation that is 10/30/2021, patient remains to be afebrile, the patient is breathing comfortably on room air, patient did not answer any question and no vomiting or diarrhea was reported by the nursing staff Objective - Vital Signs Vital signs: Vital Signs Temp 97.7 F 10/30/21 15:00 Pulse 67 10/30/21 15:00 Resp 16 10/30/21 15:00 BP 134/57 10/30/21 15:00 Pulse Ox 98 10/30/21 15:00 FiO2 Intake & Output 10/30/21 12:59 Intake Total Output Total 1600 Balance -1600 Intake: Oral Output: Urine 1600 Other: Voiding Method Indwelling Catheter # Bowel Movements - Exam GENERAL DESCRIPTION: Elderly male lying in bed, no distress. No tachypnea or accessory muscle of respiration use. LUNGS: Unlabored breathing. Clear to auscultation anteriorly. No wheeze or cr ackle . HEART: S1, S2, regular rate and rhythm. No loud murmur ABDOMEN: Soft, no tenderness , guarding or rigidity, no organomegaly EXTREMITIES: No edema of feet. - Labs CBC & Chem 7: 10/30/21 05:03 10/30/21 05:03 Labs: Abnormal Lab Results - Last 24 Hours (Table) 10/30/21 10/30/21 10/30/21 Range/Units 05:03 05:03 11:33 WBC 10.53 H (4.50-10.00) X 10*3/uL RBC 3.61 L (4.40-5.60) X 10*6/uL Hgb 9.9 L (13.0-17.0) g/dL Hct 31.3 L (39.6-50.0) % MCHC 31.6 L (32.0-37.0) g/dL Eosinophils # 1.36 H (0.04-0.35) X 10*3/uL BUN/Creatinine Ratio 21.84 H (12.00-20.00) Ratio Glucose 150 H (70-110) mg/dL POC Glucose (mg/dL) 193 H (70-110) mg/dL Total Bilirubin <0.15 L (0.30-1.20) mg/dL Albumin 3.4 L (3.8-4.9) g/dL Albumin/Globulin Ratio 1.09 L (1.60-3.17) g/dL 10/30/21 10/30/21 10/31/21 Range/Units 17:05 20:08 06:59 WBC (4.50-10.00) X 10*3/uL RBC (4.40-5.60) X 10*6/uL Hgb (13.0-17.0) g/dL Hct (39.6-50.0) % MCHC (32.0-37.0) g/dL Eosinophils # (0.04-0.35) X 10*3/uL BUN/Creatinine Ratio (12.00-20.00) Ratio Glucose (70-110) mg/dL POC Glucose (mg/dL) 151 H 183 H 161 H (70-110) mg/dL Total Bilirubin (0.30-1.20) mg/dL Albumin (3.8-4.9) g/dL Albumin/Globulin Ratio (1.60-3.17) g/dL Microbiology - Last 24 Hours (Table) 10/24/21 18:32 Blood Culture - Final Blood No Growth after 144 hours 10/24/21 18:24 Blood Culture - Final Blood No Growth after 144 hours Assessment and Plan (1) Urinary tract infection Current Visit: Yes Status: Acute Code(s): N39.0 - URINARY TRACT INFECTION, SITE NOT SPECIFIED SNOMED Code(s): 80424726 Plan: 1patient presented to hospital with a fever mental status changes likely secondary to catheter associated urine tract infection in this patient who did have chronic indwelling Alba catheter failing outpatient oral Macrobid therapy. 2 patient has shown clinical improvement as fever has resolved urinary culture had been finalized Proteus and providencia for the patient is covered with Rocephin 1 g daily which will be continued with the plan to finish therapy with oral Ceftin 7 days Time with Patient: Less than 30
[2021-10-31 11:06] LABS: Glucose,Whole Blood 262 mg/dL (70-110)
[2021-10-31 16:58] LABS: Glucose,Whole Blood 67 mg/dL (70-110)
[2021-10-31 17:19] LABS: Glucose,Whole Blood 65 mg/dL (70-110)
--- NOTE | 2021-10-31 17:29 | DS ---
DISCHARGE SUMMARY DISCHARGE DIAGNOSIS: 1. Dehydration. 2. Lactic acidosis. 3. Acute febrile infection. 4. Urinary tract infection. 5. Diabetes mellitus. 6. Neuropathy. 7. Depression. Condition stable. Prognosis guarded. 1. Metabolic encephalopathy with worsening dementia secondary to urinary tract infection. He was placed on broad-spectrum antibiotics for multiple days, then switched to oral Ceftin 500 b.i.d. for the next 7 days at the snf, which he will have to continue. Other medications include melatonin 3 mg at night, metformin 500 b.i.d., aspirin 81 mg daily, Neurontin 100 mg daily, Tylenol p.r.n., Zestril 10 mg daily, mirtazapine 7.5 at night, NovoLog scale, Levemir 30 units subcutaneously daily, multivitamin daily, Plavix 75 mg daily, [place] 5/325 every 6 hours p.r.n., Risperdal 1.5 mg at night, Lipitor 40 mg daily. Ambulate as tolerated. Will follow up in the snf. Continue with Ceftin 500 b.i.d. for another week. Diet as tolerated. The patient improved with improving mental cognition and less metabolic encephalopathy with IV antibiotics. The final cultures were positive for Providencia stuartii and Proteus mirabilis. Ceftin 500 b.i.d. for 7 more days. MMODL / IJN: [id number] /
[2021-10-31 17:34] LABS: Glucose,Whole Blood 80 mg/dL (70-110)
[2021-10-31 20:25] LABS: Glucose,Whole Blood 172 mg/dL (70-110)
[2021-10-31] MEDS: MIRTAZAPINE 15 MG TAB PO SCH (20:36)
[2021-10-31] MEDS: ATORVASTATIN 40 MG TAB PO SCH (20:36)
[2021-10-31] MEDS: lisinopriL 10 MG TAB PO SCH (20:36)
[2021-10-31] MEDS: risperiDONE 0.5 MG TAB PO SCH (20:36)
[2021-10-31] MEDS: MELATONIN 3 MG TABLET PO SCH (20:36)
[2021-11-01] MEDS: HYDROcodone/APAP 5-325MG 1 EACH TAB PO PRN (02:19)
[2021-11-01 06:58] LABS: Glucose,Whole Blood 150 mg/dL (70-110)
[2021-11-01 09:55] LABS: Glucose,Whole Blood 238 mg/dL (70-110)
[2021-11-01] MEDS: metFORMIN 500 MG TAB PO SCH (09:55)
[2021-11-01] MEDS: CLOPIDOGREL 75 MG TAB PO SCH (09:55)
[2021-11-01] MEDS: GABAPENTIN 100 MG CAP PO SCH (09:55)
[2021-11-01] MEDS: ASPIRIN 81 MG PO SCH (09:55)
[2021-11-01] MEDS: MULTIVITAMINS, THERA 1 EACH TAB PO SCH (09:55)
--- NOTE | 2021-11-01 09:55 | CDI ---
Documentation Clarification Form Date: 11/01/2021 09:36:00 AM From: Luzma AshleyBoatengMAICOL winn, CCDS Admit Date: 10/26/2021 10:28:00 AM Patient Name: Newton Molina Visit Number: [id number] Discharge Date: ATTENTION: The Clinical Documentation Specialists (CDI) and [facility] Coding Staff appreciate your assistance in clarifying documentation. Please respond to the clarification below the line at the bottom and electronically sign. The CDI & [facility] Coding staff will review the response and follow-up if needed. Please note: Queries are made part of the Legal Health Record. If you have any questions, please contact the author of this message via ITS. Dr. Mandeep Waters: Per the 10/30 Infectious Disease Progress Note: Patient has a history of urinary retention with indwelling Alba Catheter, recently failing outpatient oral Macrobid therapy admitted with mental status changes and fever concerning for catheter associated UTI. Additional clarification regarding the etiology of the UTI is requested. History/Risk Factors per the 10/24 H/P: CVA with right sided weakness, Diabetes Mellitus, Bilateral extremity neuropathy, Hypertension, Hyperlipidemia, Vascular Dementia, Obstructive Uropathy, UTIs with Sepsis, Enlarged Heart, Muscle Weakness, Frequent falls, Anemia and Insomnia. Clinical Indicators: Presented to the ED on 10/24 from a retirement via EMS with Sepsis. Recently finished a course of Macrobid, elevated temperature. Has a chronic indwelling Alba Catheter. Admit with UTI, Dehydration, Elevated Lactic Acid level, Acute Febrile Illness. 10/24 VS: T 103.1, P 98, 114; R 17, BP 177/73, PO 97 RA, BMI: 28.5 10/24 LAB: Hgb 11.3, Neutrophils 9.4, Lymph 0.3; Na 133, Glucose 149, Lactic Acid 2.6, Mag 1.5, Iron 15, $ Sat 5.60, Transferrin 195.0 UA: Yellow, Turbid, 1+ protein, Small blood, Large Esterase, RBC 35, WBC 86 10/24 Blood culture: Final: No growth @ 144 hours. Repeat 10/24: Final: No growth @ 144 hours. 10/24 Urine culture: Final: Providencia stuartii, Proteus mirabilis 10/26 Nursing Assessment: Suprapubic Catheter for neurogenic bladder POA, draining clear. 10/27 Nursing Assessment: Suprapubic Catheter: Yellow - dark edwin. Treatment 10/24: Fall precautions, Neuro Assessment, Infectious Disease Consult, IV Na Chl 1,000 mls @ 130 mls/hr q7H, IV Rocephin 2,000 mg x1, IV Na Chl 1,000 mls @ 999 mls/hr q1H, IV Mag Sulfate/Dextrose 100 mls @ 100 mls/hr x1. 10/25: IV Rocephin 50 mls @ 100 mls/hr q24H Please clarify the etiology of the UTI, if known: [ ] UTI is related to Alba catheter [ ] UTI is not related to Alba catheter [ ] Other condition, please specify [ ] Unable to determine (Template Last Revised: June 2020) MTDD
[2021-11-01] MEDS: INSULIN ASPART (NovoLOG) 100 UNIT/ML VIAL SQ SCH (10:49)
[2021-11-01] MEDS: INSULIN DETEMIR (LEVEMIR) 100 UNIT/ML SYR SQ SCH (10:49)
[2021-11-01 10:57] LABS: Glucose,Whole Blood 258 mg/dL (70-110)
[2021-11-01 11:28] VITALS: BP 169/76; PULSE 71; RESP 18; TEMP 98.1
--- NOTE | 2021-11-08 21:31 | P.PN ---
Subjective Progress Note Date: 10/31/21 Principal diagnosis: Catheter associated tract infection Patient is a 76 year old male with a past medical history taken for urinary retention with indwelling Alba catheter recently failing outpatient oral Macrobid therapy admitted to the hospital with mental status changes and fever concerning for catheter associated UTI. On today's evaluation that is 10/31/2021, patient continues to be afebrile, the patient is breathing comfortably on room air, paremains to be lethargic and did not answer any questions and no vomiting or diarrhea reported Objective - Vital Signs Vital signs: Vital Signs Temp 98.3 F 10/31/21 11:05 Pulse 60 10/31/21 11:05 Resp 16 10/31/21 11:05 BP 143/84 10/31/21 11:05 Pulse Ox 99 10/31/21 11:05 FiO2 Intake & Output 10/30/21 10/31/21 10/31/21 18:59 06:59 18:59 Intake Total 120 Output Total 1600 900 1 Balance -1600 -780 -1 Intake: Oral 120 Output: Urine 1600 900 Stool 1 Other: Voiding Method Indwelling Catheter Indwelling Catheter Indwelling Catheter # Bowel Movements 1 - Exam GENERAL DESCRIPTION: Elderly male lying in bed, no distress. No tachypnea or accessory muscle of respiration use. LUNGS: Unlabored breathing. Clear to auscultation anteriorly. No wheeze or crackle . HEART: S1, S2, regular rate and rhythm. No loud murmur ABDOMEN: Soft, no tenderness , guarding or rigidity, no organomegaly EXTREMITIES: No edema of feet. - Labs CBC & Chem 7: 10/30/21 05:03 10/30/21 05:03 Labs: Abnormal Lab Results - Last 24 Hours (Table) 10/30/21 10/30/21 10/31/21 Range/Units 17:05 20:08 06:59 POC Glucose (mg/dL) 151 H 183 H 161 H (70-110) mg/dL 10/31/21 Range/Units 11:05 POC Glucose (mg/dL) 262 H (70-110) mg/dL Microbiology - Last 24 Hours (Table) 10/24/21 18:32 Blood Culture - Final Blood No Growth after 144 hours 10/24/21 18:24 Blood Culture - Final Blood No Growth after 144 hours Assessment and Plan (1) Urinary tract infection Status: Acute Code(s): N39.0 - URINARY TRACT INFECTION, SITE NOT SPECIFIED SNOMED Code(s): 69595950 Plan: 1patient presented to hospital with a fever mental status changes likely secondary to catheter associated urine tract infection in this patient who did have chronic indwelling Alba catheter failing outpatient oral Macrobid therapy. 2 patient has shown clinical improvement as fever has resolved urinary culture had been finalized Proteus and providencia for the patient clinically responded to Rocephin 1 g daily which will be continued with the plan to finish therapy with oral Ceftin 7 days on discharge Time with Patient: Less than 30
--- NOTE | 2021-11-08 21:32 | P.PN ---
Subjective Progress Note Date: 11/01/21 Principal diagnosis: Catheter associated tract infection Patient is a 76 year old male with a past medical history taken for urinary retention with indwelling Alba catheter recently failing outpatient oral Macrobid therapy admitted to the hospital with mental status changes and fever concerning for catheter associated UTI. On today's evaluation that is 11/01/2021, patient remains to be afebrile, the patient is breathing comfortably on room air, the patient is lethargic and did not answer any questions and no vomiting or diarrhea or any other changes reported by the nursing staff Objective - Vital Signs Vital signs: Vital Signs Temp 98.1 F 11/01/21 11:00 Pulse 71 11/01/21 11:00 Resp 18 11/01/21 11:00 BP 169/76 11/01/21 11:00 Pulse Ox 95 11/01/21 11:00 FiO2 Intake & Output 10/31/21 11/01/21 11/01/21 18:59 06:59 18:59 Intake Total 200 Output Total 852 550 1 Balance -852 -350 -1 Intake: Oral 200 Output: Urine 850 550 Stool 2 1 Other: Voiding Method Indwelling Catheter Indwelling Catheter - Exam GENERAL DESCRIPTION: Elderly male lying in bed, no distress. No tachypnea or acc essory muscle of respiration use. LUNGS: Unlabored breathing. Clear to auscultation anteriorly. No wheeze or crackle . HEART: S1, S2, regular rate and rhythm. No loud murmur ABDOMEN: Soft, no tenderness , guarding or rigidity, no organomegaly EXTREMITIES: No edema of feet. - Labs CBC & Chem 7: 10/30/21 05:03 10/30/21 05:03 Labs: Abnormal Lab Results - Last 24 Hours (Table) 10/31/21 10/31/21 10/31/21 Range/Units 16:56 17:17 20:23 POC Glucose (mg/dL) 67 L 65 L 172 H (70-110) mg/dL 11/01/21 11/01/21 11/01/21 Range/Units 06:56 09:53 10:56 POC Glucose (mg/dL) 150 H 238 H 258 H (70-110) mg/dL Assessment and Plan (1) Urinary tract infection Status: Acute Code(s): N39.0 - URINARY TRACT INFECTION, SITE NOT SPECIFIED SNOMED Code(s): 49391697 Plan: 1patient presented to hospital with a fever mental status changes likely secondary to catheter associated urine tract infection in this patient who did have chronic indwelling Alba catheter failing outpatient oral Macrobid therapy. 2 patient has shown clinical improvement as fever has resolved urinary culture had been finalized Proteus and providencia, patient seemed to have clinically responded to Rocephin 1 g daily , with the plan to finish therapy with oral Ceftin 7 days on discharge Time with Patient: Less than 30
--- NOTE | 2021-11-14 08:10 | CDI ---
Documentation Clarification Form Date: 11/01/2021 09:36:00 AM From: Luzma BoatengMAICOL winn, CCDS Admit Date: 10/26/2021 10:28:00 AM Patient Name: Newton Molina Visit Number: [id number] Discharge Date: 11/01/2021 05:04:00 PM ATTENTION: The Clinical Documentation Specialists (CDI) and [facility] Coding Staff appreciate your assistance in clarifying documentation. Please respond to the clarification below the line at the bottom and electronically sign. The CDI & [facility] Coding staff will review the response and follow-up if needed. Please note: Queries are made part of the Legal Health Record. If you have any questions, please contact the author of this message via ITS. Dr. Mandeep Waters: Per the 10/30 Infectious Disease Progress Note: Patient has a history of urinary retention with indwelling Alba Catheter, recently failing outpatient oral Macrobid therapy admitted with mental status changes and fever concerning for catheter associated UTI. Additional clarification regarding the etiology of the UTI is requested. History/Risk Factors per the 10/24 H/P: CVA with right sided weakness, Diabetes Mellitus, Bilateral extremity neuropathy, Hypertension, Hyperlipidemia, Vascular Dementia, Obstructive Uropathy, UTIs with Sepsis, Enlarged Heart, Muscle Weakness, Frequent falls, Anemia and Insomnia. Clinical Indicators: Presented to the ED on 10/24 from a long-term via EMS with Sepsis. Recently finished a course of Macrobid, elevated temperature. Has a chronic indwelling Alba Catheter. Admit with UTI, Dehydration, Elevated Lactic Acid level, Acute Febrile Illness. 10/24 VS: T 103.1, P 98, 114; R 17, BP 177/73, PO 97 RA, BMI: 28.5 10/24 LAB: Hgb 11.3, Neutrophils 9.4, Lymph 0.3; Na 133, Glucose 149, Lactic Acid 2.6, Mag 1.5, Iron 15, $ Sat 5.60, Transferrin 195.0 UA: Yellow, Turbid, 1+ protein, Small blood, Large Esterase, RBC 35, WBC 86 10/24 Blood culture: Final: No growth @ 144 hours. Repeat 10/24: Final: No growth @ 144 hours. 10/24 Urine culture: Final: Providencia stuartii, Proteus mirabilis 10/26 Nursing Assessment: Suprapubic Catheter for neurogenic bladder POA, draining clear. 10/27 Nursing Assessment: Suprapubic Catheter: Yellow - dark edwin. Treatment 10/24: Fall precautions, Neuro Assessment, Infectious Disease Consult, IV Na Chl 1,000 mls @ 130 mls/hr q7H, IV Rocephin 2,000 mg x1, IV Na Chl 1,000 mls @ 999 mls/hr q1H, IV Mag Sulfate/Dextrose 100 mls @ 100 mls/hr x1. 10/25: IV Rocephin 50 mls @ 100 mls/hr q24H Please clarify the etiology of the UTI, if known: [ ] UTI is related to Alba catheter [ ] UTI is not related to Alba catheter [ ] Other condition, please specify [ ] Unable to determine (Template Last Revised: June 2020) 11/15 Query response documented in the Attending Physician Progress Note: 11/14: Dr. Waters: UTI related to Alba catheter. (CDS: KENNEDY) AMEE
--- NOTE | 2021-11-14 08:53 | PN ---
PROGRESS NOTE DIAGNOSIS: Urinary tract infection related to Alba catheter [id number] / CRISTOBALN: [id number] /
== END 2021-11-01 17:04 | DRG 698 ==
LOC: EC 18:02 → 6NMEDSUR 20:51 → 5NMEDONC 21:40 → OBSVTOIN 10-26 10:28
PROVIDERS: ADMIT Family Medicine; ATTEND Family Medicine
DX: T83.511A Infection and inflammatory reaction due to indwelling urethral catheter, initial encounter (principal); A41.59 Other Gram-negative sepsis; R65.20 Severe sepsis without septic shock; G93.41 Metabolic encephalopathy; E87.2 Acidosis; F05 Delirium due to known physiological condition; I69.351 Hemiplegia and hemiparesis following cerebral infarction affecting right dominant side; N12 Tubulo-interstitial nephritis, not specified as acute or chronic; B96.4 Proteus (mirabilis) (morganii) as the cause of diseases classified elsewhere; D64.9 Anemia, unspecified; E11.42 Type 2 diabetes mellitus with diabetic polyneuropathy; E78.5 Hyperlipidemia, unspecified; Y73.8 Miscellaneous gastroenterology and urology devices associated with adverse incidents, not elsewhere classified; F01.50 Vascular dementia, unspecified severity, without behavioral disturbance, psychotic disturbance, mood disturbance, and anxiety; R29.6 Repeated falls; F32.A Depression, unspecified; F41.9 Anxiety disorder, unspecified; F51.04 Psychophysiologic insomnia; I10 Essential (primary) hypertension; I69.320 Aphasia following cerebral infarction; Z93.59 Other cystostomy status; N30.90 Cystitis, unspecified without hematuria; Z20.822 Contact with and (suspected) exposure to COVID-19; N40.1 Benign prostatic hyperplasia with lower urinary tract symptoms; E86.0 Dehydration; Z79.02 Long term (current) use of antithrombotics/antiplatelets; Z79.4 Long term (current) use of insulin; Z79.82 Long term (current) use of aspirin; Z79.84 Long term (current) use of oral hypoglycemic drugs; Z79.899 Other long term (current) drug therapy; Z83.3 Family history of diabetes mellitus; Z91.81 History of falling; Z91.040 Latex allergy status; Z87.440 Personal history of urinary (tract) infections
CPT/HCPCS: 36415; 71046; 80053; 81001; 82550; 82607; 82746; 83540; 83550; 83605; 83735; 84443; 85025; 86618; 87040; 87077; 87086; 87186; 87502; 87635; 96361; 96365; 96375; 99285

== ENCOUNTER 2021-12-22 18:02 | Inpatient (IN) | payer MEDICARE, BC, OTHER ==
[2021-12-22] MEDS ORDERED: ACETAMINOPHEN TAB 500 MG TAB PO STA (18:51)
[2021-12-22] MEDS ORDERED: SODIUM CHLORIDE 0.9% IV STA (18:51)
[2021-12-22] MEDS ORDERED: CEFEPIME 2 GM in SODIUM CHLORIDE 0.9% 100 ML IVPB STA (18:53)
[2021-12-22] MEDS ORDERED: VANCOMYCIN IV PER PHARMACY 1 EACH MISC MISCELLANE PRN (18:53)
[2021-12-22 18:55] LABS: Basophils % (A) 0 %; Eosinophils # (A) 0.2 k/uL (0-0.7); Eosinophils % (A) 2 %; HCT 34.7 % (39.0-53.0); HGB 11.2 gm/dL (13.0-17.5); Lymphocytes # (A) 0.5 k/uL (1.0-4.8); Lymphocytes % (A) 4 %; MCHC 32.4 g/dL (31.0-37.0); MCV 86.4 fL (80.0-100.0); Monocytes # (A) 0.3 k/uL (0-1.0); Monocytes % (A) 3 %; Neutrophils # (A) 11.4 k/uL (1.3-7.7); Neutrophils % (A) 90 %; Platelet Count 202 k/uL (150-450); RBC 4.01 m/uL (4.30-5.90); WBC 12.7 k/uL (3.8-10.6)
[2021-12-22 18:59] LABS: Appearance,Urine Turbid (Clear); Bacteria,Urine Rare /hpf; Bilirubin,Urine Negative (Negative); Blood,Urine Moderate (Negative); Budding Yeast,Urine Occasional /hpf; Color,Urine Yellow; Glucose,Urine (UA) Negative (Negative); Hyaline Casts,Urine 1 /lpf (0-2); Ketones,Urine Negative (Negative); Leukocyte Esterase,Urine Large (Negative); Mucus,Urine Occasional /hpf; Nitrite,Urine Positive (Negative); PH, Urine 5.5 (5.0-8.0); Protein,Urine 1+ (Negative); RBC,Urine 29 /hpf (0-5); Specific Gravity,Urine 1.023 (1.001-1.035); Squamous Epithelial Cell,Urine 1 /hpf (0-4); Urobilinogen,Urine <2.0 mg/dL (<2.0); WBC,Urine 105 /hpf (0-5)
[2021-12-22 18:59] LABS: Calcium 9.1 mg/dL (8.4-10.2); Potassium 4.2 mmol/L (3.5-5.1); Total Bilirubin 0.3 mg/dL (0.2-1.3); Total Protein 7.3 g/dL (6.3-8.2)
--- NOTE | 2021-12-22 19:40 | ED ---
General Adult HPI - General Chief complaint: Fever Stated complaint: UTI Time Seen by Provider: 12/22/21 18:05 Source: patient, EMS Mode of arrival: ambulatory Limitations: altered mental status, physical limitation - History of Present Illness Initial comments: Dictation was produced using Pod[employer] dictation software. please excuse any grammatical, word or spelling errors. Chief Complaint: 76-year-old male presents with fever History of Present Illness: This 76-year-old male who has past medical history of mental debility. He is transferred to us from retirement for fever and urinary tract infection. Patient was discovered to have a UTI yesterday. Started on ciprofloxacin. Today he spiked a temperature at retirement of 100.2. Patient unable to provide history of present illness at this time given his mental status. According to nurse received report from EMS patient is at baseline mentation. He was not showing any signs of coughing or respiratory distress. Unable to obtain ROS secondary to mental status. PHYSICAL EXAM: General Impression: Alert, not in acute distress HEENT: Normocephalic atraumatic, extra-ocular movements intact, pupils equal and reactive to light bilaterally, mucous membranes moist. Cardiovascular: Heart regular rate and rhythm Chest: no retractions, no tachypnea Abdomen: abdomen soft, non-tender, non-distended, no organomegaly Musculoskeletal: Pulses present and equal in all extremities, no peripheral edema Motor: no focal deficits noted Neurological: CN II-XII grossly intact, no focal motor or sensory deficits noted Skin: Intact with no visualized rashes, no rash or induration to the perineum ED course: 76-year-old male presents to the emergency department for fever and UTI. Vital signs upon arrival shows temperature 101.3, heart rate of 108. Normotensive. 84% on room air. Laboratory evaluation obtained. Mild leukocytosis of 12.7. Metabolic panel shows lactic acidosis 2.1. Otherwise metabolic panel is unremarkable. Urinalysis positive for urinary tract infection. Pending for panel viral PCR. Clinical presentation concerning for sepsis. Patient's given 30 mL per ideal weight EKG bolus. Patient was given Tylenol. Patient started on IV fluids. I guess level is 2.1. [facility]. EKG interpretation: Ventricular rate 105, sinus tachycardia,. 121, QS 96, QTC 394. No CO prolongation, no QTC prolongation, no ST or T-wave changes noted. EKG compared to 04/06/2021 showing no changes. Overall, this EKG is unremarkable - Related Data Home Medications Medication Instructions Recorded Confirmed lisinopriL [Zestril] 10 mg PO HS 10/20/20 10/24/21 Melatonin 3 mg PO HS 12/29/20 10/24/21 Mirtazapine 7.5 mg PO HS 12/29/20 10/24/21 INSULIN ASPART (NovoLOG) [NovoLOG See Protocol SQ ACHS 04/06/21 10/24/21 (formulary)] Insulin Detemir [Levemir Flextouch 30 units SQ DAILY 04/06/21 10/24/21 Pen] Multivitamins, Thera [Multivitamin 1 tab PO DAILY 04/06/21 10/24/21 (formulary)] metFORMIN HCL 500 mg PO BID 04/06/21 10/24/21 Acetaminophen [Tylenol] 650 mg PO Q6H PRN 10/24/21 10/24/21 Atorvastatin Calcium [Lipitor] 40 mg PO HS 10/24/21 10/24/21 HYDROcodone/APAP 5-325MG [[place] 1 tab PO Q6HR PRN 10/24/21 10/24/21 5-325] INSULIN ASPART (NovoLOG) [NovoLOG 10 unit SQ AC-TID 10/24/21 10/24/21 (formulary)] risperiDONE [RisperDAL] 1.5 mg PO HS 10/24/21 10/24/21 Previous Rx's Medication Instructions Recorded Aspirin 81 mg PO DAILY tab 04/11/21 Clopidogrel [Plavix] 75 mg PO DAILY tab 04/11/21 Gabapentin [Neurontin] 100 mg PO DAILY #10 cap 04/11/21 Allergies Allergy/AdvReac Type Severity Reaction Status Date / Time latex Allergy Rash/Hives Verified 10/24/21 19:54 Review of Systems ROS Statement: Those systems with pertinent positive or pertinent negative responses have been documented in the HPI. ROS Other: All systems not noted in ROS Statement are negative. Past Medical History Past Medical History: CVA/TIA, Dementia, Diabetes Mellitus, Hyperlipidemia, Hypertension, Prostate Disorder, Renal Disease Additional Past Medical History / Comment(s): IDDM type II, neuropathy bilateral hands/feet and legs, past "kidney problems", CVA with R sided weakness/aphasia/6 word vocabulary/spouse denies dysphagia, FALLS, vascular dementia, BPH, obstructive reflux/uropathy/has suprapubic catheter, UTIs, UTI with sepsis, enlarged heart, muscle weakness, anemia, insomnia. History of Any Multi-Drug Resistant Organisms: None Reported Past Surgical History: Tonsillectomy Additional Past Surgical History / Comment(s): Suprapubic catheter Past Anesthesia/Blood Transfusion Reactions: No Reported Reaction Past Psychological History: Anxiety, Depression Smoking Status: Never smoker Past Alcohol Use History: Unable to Obtain Past Drug Use History: Unable to Obtain - Past Family History Mother Family Medical History: Diabetes Mellitus Father History Unknown: Yes General Exam Limitations: altered mental status, physical limitation Course Vital Signs 12/22/21 12/22/21 12/22/21 18:15 18:45 20:07 Temperature 101.3 F H Pulse Rate 104 H 108 H 106 H Respiratory 16 18 18 Rate Blood Pressure 169/81 172/78 O2 Sat by Pulse 94 L 94 L 94 L Oximetry 12/22/21 21:18 Temperature 100.7 F H Pulse Rate 120 H Respiratory 16 Rate Blood Pressure 175/95 O2 Sat by Pulse 95 Oximetry Medical Decision Making - Lab Data Result diagrams: 12/22/21 18:20 12/22/21 18:20 Lab Results 12/22/21 12/22/21 12/22/21 Range/Units 18:20 18:20 18:20 WBC 12.7 H (3.8-10.6) k/uL RBC 4.01 L (4.30-5.90) m/uL Hgb 11.2 L (13.0-17.5) gm/dL Hct 34.7 L (39.0-53.0) % MCV 86.4 (80.0-100.0) fL MCH 28.0 (25.0-35.0) pg MCHC 32.4 (31.0-37.0) g/dL RDW 14.0 (11.5-15.5) % Plt Count 202 (150-450) k/uL MPV 8.0 Neutrophils % 90 % Lymphocytes % 4 % Monocytes % 3 % Eosinophils % 2 % Basophils % 0 % Neutrophils # 11.4 H (1.3-7.7) k/uL Lymphocytes # 0.5 L (1.0-4.8) k/uL Monocytes # 0.3 (0-1.0) k/uL Eosinophils # 0.2 (0-0.7) k/uL Basophils # 0.0 (0-0.2) k/uL Sodium 138 (137-145) mmol/L Potassium 4.2 (3.5-5.1) mmol/L Chloride 104 (98-107) mmol/L Carbon Dioxide 21 L (22-30) mmol/L Anion Gap 13 mmol/L BUN 18 (9-20) mg/dL Creatinine 1.01 (0.66-1.25) mg/dL Est GFR (CKD-EPI)AfAm 83 (>60 ml/min/1.73 sqM) Est GFR (CKD-EPI)NonAf 72 (>60 ml/min/1.73 sqM) Glucose 159 H (74-99) mg/dL Lactic Ac Sepsis Rflx Plasma Lactic Acid Ezekiel 2.1 H* (0.7-2.0) mmol/L Calcium 9.1 (8.4-10.2) mg/dL Total Bilirubin 0.3 (0.2-1.3) mg/dL AST 20 (17-59) U/L ALT 19 (4-49) U/L Alkaline Phosphatase 109 (38-126) U/L Total Protein 7.3 (6.3-8.2) g/dL Albumin 4.0 (3.5-5.0) g/dL Urine Color Urine Appearance (Clear) Urine pH (5.0-8.0) Ur Specific [place] (1.001-1.035) Urine Protein (Negative) Urine Glucose (UA) (Negative) Urine Ketones (Negative) Urine Blood (Negative) Urine Nitrite (Negative) Urine Bilirubin (Negative) Urine Urobilinogen (<2.0) mg/dL Ur Leukocyte Esterase (Negative) Urine RBC (0-5) /hpf Urine WBC (0-5) /hpf Urine WBC Clumps (None) /hpf Ur Squamous Epith Cells (0-4) /hpf Urine Bacteria (None) /hpf Hyaline Casts (0-2) /lpf Urine Mucus (None) /hpf Urine Yeast (Budding) (None) /hpf 12/22/21 12/22/21 Range/Units 18:47 19:32 WBC (3.8-10.6) k/uL RBC (4.30-5.90) m/uL Hgb (13.0-17.5) gm/dL Hct (39.0-53.0) % MCV (80.0-100.0) fL MCH (25.0-35.0) pg MCHC (31.0-37.0) g/dL RDW (11.5-15.5) % Plt Count (150-450) k/uL MPV Neutrophils % % Lymphocytes % % Monocytes % % Eosinophils % % Basophils % % Neutrophils # (1.3-7.7) k/uL Lymphocytes # (1.0-4.8) k/uL Monocytes # (0-1.0) k/uL Eosinophils # (0-0.7) k/uL Basophils # (0-0.2) k/uL Sodium (137-145) mmol/L Potassium (3.5-5.1) mmol/L Chloride (98-107) mmol/L Carbon Dioxide (22-30) mmol/L Anion Gap mmol/L BUN (9-20) mg/dL Creatinine (0.66-1.25) mg/dL Est GFR (CKD-EPI)AfAm (>60 ml/min/1.73 sqM) Est GFR (CKD-EPI)NonAf (>60 ml/min/1.73 sqM) Glucose (74-99) mg/dL Lactic Ac Sepsis Rflx Y Plasma Lactic Acid Ezekiel (0.7-2.0) mmol/L Calcium (8.4-10.2) mg/dL Total Bilirubin (0.2-1.3) mg/dL AST (17-59) U/L ALT (4-49) U/L Alkaline Phosphatase (38-126) U/L Total Protein (6.3-8.2) g/dL Albumin (3.5-5.0) g/dL Urine Color Yellow Urine Appearance Turbid (Clear) Urine pH 5.5 (5.0-8.0) Ur Specific [place] 1.023 (1.001-1.035) Urine Protein 1+ H (Negative) Urine Glucose (UA) Negative (Negative) Urine Ketones Negative (Negative) Urine Blood Moderate H (Negative) Urine Nitrite Positive (Negative) Urine Bilirubin Negative (Negative) Urine Urobilinogen <2.0 (<2.0) mg/dL Ur Leukocyte Esterase Large H (Negative) Urine RBC 29 H (0-5) /hpf Urine WBC 105 H (0-5) /hpf Urine WBC Clumps Few H (None) /hpf Ur Squamous Epith Cells 1 (0-4) /hpf Urine Bacteria Rare H (None) /hpf Hyaline Casts 1 (0-2) /lpf Urine Mucus Occasional H (None) /hpf Urine Yeast (Budding) Occasional H (None) /hpf Critical Care Time Critical Care Time: Yes Total Critical Care Time: 33 Disposition Clinical Impression: Sepsis Disposition: ADMITTED IP TO THIS [facility] Condition: Serious Referrals: Nonstaff,Physician [Primary Care Provider] - 1-2 days Decision Time: 21:56
[2021-12-22] MEDS ORDERED: VANCOMYCIN 2,000 MG in SODIUM CHLORIDE 0.9% 500 ML 500 ML IVPB ONE (20:00)
--- NOTE | 2021-12-22 20:49 | XR ---
EXAMINATION TYPE: XR chest 1V portable DATE OF EXAM: 12/22/2021 COMPARISON: 10/24/2021 HISTORY: Fever TECHNIQUE: Single frontal view of the chest is obtained. FINDINGS: There is no focal air space opacity, pleural effusion, or pneumothorax seen. The cardiac silhouette size is within normal limits. The osseous structures are intact. IMPRESSION: No acute process.
[2021-12-22] MEDS ORDERED: NALOXONE 0.4 MG/ML 1 ML VIAL IV PRN (21:54)
[2021-12-22] MEDS ORDERED: ACETAMINOPHEN TAB 325 MG TAB PO PRN (21:54)
[2021-12-23] MEDS ORDERED: VANCOMYCIN 1,500 MG in SODIUM CHLORIDE 0.9% 250 ML IVPB SCH (08:00)
[2021-12-23] MEDS: SODIUM CHLORIDE 0.9% 1,000 ML IV SCH ×4 (08:42→22:04)
--- NOTE | 2021-12-23 08:44 | P.PN ---
Progress Note - Text Progress Note Date: 12/23/21 Notified administrative charge that his primary care provider is Dr. Mandeep Waters and admitted under our services under Dr. Johnson and to be changed over to Dr. Mandeep Waters
[2021-12-23] MEDS ORDERED: LOPERAMIDE 2 MG CAP PO PRN (13:13)
[2021-12-23] MEDS ORDERED: ACETAMINOPHEN TAB 325 MG TAB PO PRN (13:13)
[2021-12-23] MEDS ORDERED: HYDROcodone/APAP 5-325MG 1 EACH TAB PO PRN (13:13)
[2021-12-23] MEDS ORDERED: DEXTROSE 50% SYRINGE 50 ML IVP PRN ×2 (13:31)
[2021-12-23] MEDS: CEFEPIME 2 GM in SODIUM CHLORIDE 0.9% 100 ML IVPB SCH (14:07)
[2021-12-23 16:36] LABS: Appearance,Urine Cloudy (Clear); Bacteria,Urine Rare /hpf; Bilirubin,Urine Negative (Negative); Blood,Urine Large (Negative); Color,Urine Yellow; Glucose,Urine (UA) 4+ (Negative); Hyaline Casts,Urine 1 /lpf (0-2); Ketones,Urine Negative (Negative); Leukocyte Esterase,Urine Large (Negative); Mucus,Urine Rare /hpf; Nitrite,Urine Negative (Negative); PH, Urine 5.5 (5.0-8.0); Protein,Urine 1+ (Negative); RBC,Urine 97 /hpf (0-5); Specific Gravity,Urine 1.018 (1.001-1.035); Squamous Epithelial Cell,Urine <1 /hpf (0-4); Urobilinogen,Urine <2.0 mg/dL (<2.0); WBC,Urine 37 /hpf (0-5)
[2021-12-23 16:45] LABS: Glucose,Whole Blood 237 mg/dL (70-110)
[2021-12-23] MEDS: metFORMIN 500 MG TAB PO SCH (17:37)
[2021-12-23] MEDS: INSULIN ASPART (NovoLOG) 100 UNIT/ML VIAL SQ SCH ×2 (17:37→22:02)
[2021-12-23] MEDS ORDERED: LORazepam 1 MG/0.5 ML VIAL IV PRN (18:55)
[2021-12-23 21:30] LABS: Glucose,Whole Blood 218 mg/dL (70-110)
[2021-12-23] MEDS: MELATONIN 3 MG TABLET PO SCH (22:02)
[2021-12-23] MEDS: MIRTAZAPINE 15 MG TAB PO SCH (22:02)
[2021-12-23] MEDS: ATORVASTATIN 40 MG TAB PO SCH (22:02)
[2021-12-23] MEDS: risperiDONE 0.5 MG TAB PO SCH (22:03)
[2021-12-23] MEDS: lisinopriL 10 MG TAB PO SCH (22:03)
--- NOTE | 2021-12-23 22:54 | P.CONS ---
History of Present Illness - Reason for Consult Consult date: 12/23/21 UTI Requesting physician: John Menon - Chief Complaint Weakness and mental status changes x one day - History of Present Illness Patient is a 76-year-old male [place] [facility] resident, patient was brought into the hospital with concern for urinary tract infection apparently the patient did have a UA checked at the [place] [facility] which was positive concerning for UTI patient was started on oral ciprofloxacin however the patient did have a fever and some mental status changes for which the patient was sent to the ER, on arrival to the ER the patient did have a fever of 101.3 F patient did have white at 4.7 with a left shift kidney function has been normal lactic acid was elevated liver enzymes are normal patient did have a positive UA influenza and COVID testing was negative patient did have a chest x-ray no acute process patient was given a dose of cefepime started on vancomycin has been admitted to the hospital infectious disease was consulted for further management of antibiotic therapy patient is slightly more awake and alert he knew that he is in the hospital denies having any chest pain or shortness of breath or cough currently on room air no vomiting or diarrhea was reported by the nursing staff Review of Systems Positive point has been mentioned in the HPI rest of the systems are negative Past Medical History Past Medical History: CVA/TIA, Dementia, Diabetes Mellitus, Hyperlipidemia, Hypertension, Prostate Disorder, Renal Disease Additional Past Medical History / Comment(s): IDDM type II, neuropathy bilateral hands/feet and legs, past "kidney problems", CVA with R sided weakness/aphasia/6 word vocabulary/spouse denies dysphagia, FALLS, vascular dementia, BPH, obstructive reflux/uropathy/has suprapubic catheter, UTIs, UTI with sepsis, enlarged heart, muscle weakness, anemia, insomnia. History of Any Multi-Drug Resistant Organisms: None Reported Past Surgical History: Tonsillectomy Additional Past Surgical History / Comment(s): Suprapubic catheter Past Anesthesia/Blood Transfusion Reactions: No Reported Reaction Past Psychological History: Anxiety, Depression Smoking Status: Never smoker Past Alcohol Use History: Unable to Obtain Past Drug Use History: Unable to Obtain - Past Family History Mother Family Medical History: Diabetes Mellitus Father History Unknown: Yes Medications and Allergies Home Medications Medication Instructions Recorded Confirmed Type lisinopriL [Zestril] 10 mg PO HS 10/20/20 12/22/21 History Melatonin 3 mg PO HS 12/29/20 12/22/21 History Mirtazapine 7.5 mg PO HS 12/29/20 12/22/21 History Multivitamins, Thera [Multivitamin 1 tab PO DAILY 04/06/21 12/22/21 History (formulary)] metFORMIN HCL 500 mg PO BID 04/06/21 12/22/21 History Clopidogrel [Plavix] 75 mg PO DAILY tab 04/11/21 12/22/21 Rx Gabapentin [Neurontin] 100 mg PO DAILY #10 cap 04/11/21 12/22/21 Rx Atorvastatin Calcium [Lipitor] 40 mg PO HS 10/24/21 12/22/21 History HYDROcodone/APAP 5-325MG [[place] 1 tab PO Q6HR PRN 10/24/21 12/22/21 History 5-325] risperiDONE [RisperDAL] 1.5 mg PO HS 10/24/21 12/22/21 History Acetaminophen [Tylenol 8 Hour] 650 mg PO Q6H PRN 12/22/21 12/22/21 History Aspirin 81 mg PO DAILY 12/22/21 12/22/21 History Ciprofloxacin HCl [Cipro] 500 mg PO BID 12/22/21 12/22/21 History Insulin Glargine,Hum.rec.anlog 30 units SQ DAILY 12/22/21 12/22/21 History [Lantus Solostar Pen] Insulin Lispro [humaLOG Kwikpen] 10 unit SQ AC-TID@07,,16 12/22/21 12/22/21 History Insulin Lispro [humaLOG Kwikpen] See Protocol SQ ACHS@07,,,20 12/22/21 12/22/21 History PRN Loperamide [Imodium] 2 - 4 mg PO TID PRN MDD 8 MG 12/22/21 12/22/21 History Nitrofurantoin Monohyd/M-Cryst 100 mg PO BID 12/22/21 12/22/21 History [Macrobid] Allergies Allergy/AdvReac Type Severity Reaction Status Date / Time latex Allergy Rash/Hives Verified 10/24/21 19:54 Physical Exam Vitals: Vital Signs Temp Pulse Resp BP Pulse Ox 12/23/21 07:25 100.7 F H 78 18 136/78 99 12/23/21 00:00 115 H 16 178/91 95 12/22/21 21:18 100.7 F H 120 H 16 175/95 95 12/22/21 20:07 106 H 18 172/78 94 L 12/22/21 18:45 101.3 F H 108 H 18 94 L 12/22/21 18:15 104 H 16 169/81 94 L Intake and Output 12/22/21 12/23/21 12/23/21 22:59 06:59 14:59 Other: Voiding Method Indwelling Catheter Weight 95.254 kg GENERAL DESCRIPTION: Elderly male lying in bed, no distress. No tachypnea or ac cessory muscle of respiration use. HEENT: Shows Pallor , no scleral icterus. Oral mucous membrane is dry. No pharyngeal erythema or thrush NECK: Trachea central, no thyromegaly. LUNGS: Unlabored breathing. Clear to auscultation anteriorly. No wheeze or crackle. HEART: S1, S2, regular rate and rhythm. No loud murmur ABDOMEN: Soft, no tenderness , guarding or rigidity, no organomegaly EXTREMITIES: No edema of feet. SKIN: No rash, no masses palpable. NEUROLOGICAL: The patient is awake, alert, oriented x2, mood and affect normal. Results CBC & Chem 7: 12/22/21 18:20 12/22/21 18:20 Labs: Abnormal Lab Results - Last 24 Hours (Table) 12/22/21 12/22/21 12/22/21 Range/Units 18:20 18:20 18:20 WBC 12.7 H (3.8-10.6) k/uL RBC 4.01 L (4.30-5.90) m/uL Hgb 11.2 L (13.0-17.5) gm/dL Hct 34.7 L (39.0-53.0) % Neutrophils # 11.4 H (1.3-7.7) k/uL Lymphocytes # 0.5 L (1.0-4.8) k/uL Carbon Dioxide 21 L (22-30) mmol/L Glucose 159 H (74-99) mg/dL Plasma Lactic Acid Ezekiel 2.1 H* (0.7-2.0) mmol/L Procalcitonin (0.02-0.09) ng/mL Urine Protein (Negative) Urine Blood (Negative) Ur Leukocyte Esterase (Negative) Urine RBC (0-5) /hpf Urine WBC (0-5) /hpf Urine WBC Clumps (None) /hpf Urine Bacteria (None) /hpf Urine Mucus (None) /hpf Urine Yeast (Budding) (None) /hpf 12/22/21 12/22/21 Range/Units 18:20 18:47 WBC (3.8-10.6) k/uL RBC (4.30-5.90) m/uL Hgb (13.0-17.5) gm/dL Hct (39.0-53.0) % Neutrophils # (1.3-7.7) k/uL Lymphocytes # (1.0-4.8) k/uL Carbon Dioxide (22-30) mmol/L Glucose (74-99) mg/dL Plasma Lactic Acid Ezekiel (0.7-2.0) mmol/L Procalcitonin 0.13 H (0.02-0.09) ng/mL Urine Protein 1+ H (Negative) Urine Blood Moderate H (Negative) Ur Leukocyte Esterase Large H (Negative) Urine RBC 29 H (0-5) /hpf Urine WBC 105 H (0-5) /hpf Urine WBC Clumps Few H (None) /hpf Urine Bacteria Rare H (None) /hpf Urine Mucus Occasional H (None) /hpf Urine Yeast (Budding) Occasional H (None) /hpf Microbiology - Last 24 Hours (Table) 12/22/21 18:47 Urine Culture - Preliminary Urine,Clean Catch Assessment and Plan (1) Sepsis Current Visit: Yes Status: Acute Code(s): A41.9 - SEPSIS, UNSPECIFIED ORGANISM SNOMED Code(s): 28762568 (2) Catheter-associated urinary tract infection Current Visit: No Status: Acute Code(s): T83.511A - I/I REACT D/T INDWELLING URETHRAL CATHETER, INIT; N39.0 - URINARY TRACT INFECTION, SITE NOT SPECIFIED SNOMED Code(s): 296328896 Plan: 1patient presented to hospital with sepsis in this patient with a fever elevated white count elevated lactic acid source and likely catheter associated urinary tract infection. 2change Alba catheter and obtain urine culture from the new Alba. 3discontinue vancomycin. 4start the patient cefepime 2 g every 12 hr. We will follow on clinical condition and cultures to further adjust medication if needed Thank you for this consultation will follow this patient along with you
[2021-12-24] MEDS: CEFEPIME 2 GM in SODIUM CHLORIDE 0.9% 100 ML IVPB SCH ×2 (00:18→12:39)
[2021-12-24] MEDS: SODIUM CHLORIDE 0.9% 1,000 ML IV SCH ×3 (05:44→22:14)
[2021-12-24 06:54] LABS: Glucose,Whole Blood 179 mg/dL (70-110)
[2021-12-24] MEDS ORDERED: VANCOMYCIN TROUGH DUE 1 EACH MISC MISCELLANE ONE (07:00)
[2021-12-24 07:54] LABS: African American GFR (CKD) >90 (>60 ml/min/1.73 sqM); Non-African American GFR(CKD) 78 (>60 ml/min/1.73 sqM)
[2021-12-24] MEDS: INSULIN ASPART (NovoLOG) 100 UNIT/ML VIAL SQ SCH ×4 (09:01→22:11)
[2021-12-24] MEDS: GABAPENTIN 100 MG CAP PO SCH (09:28)
[2021-12-24] MEDS: ASPIRIN 81 MG PO SCH (09:28)
[2021-12-24] MEDS: CLOPIDOGREL 75 MG TAB PO SCH (09:28)
[2021-12-24] MEDS: INSULIN DETEMIR (LEVEMIR) 100 UNIT/ML SYR SQ SCH (09:28)
[2021-12-24] MEDS: MULTIVITAMINS, THERA 1 EACH TAB PO SCH (09:28)
[2021-12-24] MEDS: metFORMIN 500 MG TAB PO SCH ×2 (09:28→17:10)
--- NOTE | 2021-12-24 10:37 | HP ---
HISTORY AND PHYSICAL 76-year-old white male with fever, mental debility, transferred from outside halfway for urinary tract infection. He failed ciprofloxacin. He had a temperature of 100.2. He more confused on top of cough and respiratory distress. REVIEW OF SYSTEMS: 14-point review of systems otherwise negative. PHYSICAL EXAMINATION: GENERAL: He is pleasantly confused. He smiles. He does not talk much. VITAL SIGNS: Temperature 100.7, pulse is 120, respiratory rate 16 to 18, blood pressure 172/95. Pulse ox 95%. OPHTHALMOLOGIC: Pupils equal, round, and reactive. MUSCULOSKELETAL: Range of motion full x4. NEUROLOGIC: Cranial nerves intact. PSYCH: Fair mood and affect. LUNGS: Clear. CARDIOVASCULAR: S1 and S2. HEMATOLOGY: Negative for Homans. GI: Tenderness to palpation in lower abdomen. HOME MEDICINES: 1. Melatonin 3 mg at night. 2. Zestril 10 mg daily. 3. Mirtazapine 7.5 daily. 4. Levemir 30 units daily. 5. Multivitamin daily. 6. Metformin 500 b.i.d. 7. Lipitor 40 daily. 8. [place] 5/325 q.6. 9. NovoLog a.c. nightly. 10.Risperdal 1.5 mg daily. EKG, sinus tachycardia, no ischemia. O2 is on room air. ASSESSMENT: Insulin-dependent diabetes mellitus type 2, history of cerebrovascular accident, urinary tract infection, vascular dementia, BPH, uropathy, sepsis, anemia, insomnia. Dr. Locke for consult. . Lactic acidosis, will give fluid overnight. Prognosis guarded. MMODL / IJN: [id number] /
[2021-12-24 11:21] LABS: Glucose,Whole Blood 219 mg/dL (70-110)
[2021-12-24] MEDS: AMPICILLIN-SULBACTAM 3 GM in SODIUM CHLORIDE 0.9% 100 ML IVPB SCH ×2 (14:31→22:11)
--- NOTE | 2021-12-24 15:22 | P.PN ---
Subjective Progress Note Date: 12/24/21 Principal diagnosis: Urinary tract infection Patient is a 76-year-old male with multiple comorbidities including a urinary retention requiring suprapubic catheter placement admitted to the hospital with fever concerning for a UTI, the patient Alba catheter was changed 12/23/2021 by the nursing staff. on today's evaluation that is 12/24/2021, the patient denies having any fever or any chills, the patient is currently breathing comfortably no chest pain or cough no vomiting no diarrhea or any changes to prevent the nursing staff Objective - Vital Signs Vital signs: Vital Signs Temp 98.0 F 12/24/21 08:00 Pulse 63 12/24/21 08:00 Resp 17 12/24/21 08:00 BP 162/73 12/24/21 08:00 Pulse Ox 98 12/24/21 08:00 FiO2 Intake & Output 12/23/21 12/24/21 12/24/21 18:59 06:59 18:59 Output Total 720 500 Balance -720 -500 Weight 95.254 kg Output: Urine 720 500 Other: Voiding Method Indwelling Catheter Indwelling Catheter - Exam GENERAL DESCRIPTION: An elderly male lying in bed in no distress RESPIRATORY SYSTEM: Unlabored breathing , decreased breath sounds at bases HEART: S1 S2 regular rate and rhythm , ABDOMEN: Soft , no tenderness EXTREMITIES: No edema feet - Labs CBC & Chem 7: 12/22/21 18:20 12/24/21 06:49 Labs: Abnormal Lab Results - Last 24 Hours (Table) 12/22/21 12/23/21 12/23/21 Range/Units 18:22 16:05 16:44 POC Glucose (mg/dL) 237 H (70-110) mg/dL Hemoglobin A1c 7.6 H (0.0-6.0) % Urine Protein 1+ H (Negative) Urine Glucose (UA) 4+ H (Negative) Urine Blood Large H (Negative) Ur Leukocyte Esterase Large H (Negative) Urine RBC 97 H (0-5) /hpf Urine WBC 37 H (0-5) /hpf Urine WBC Clumps Few H (None) /hpf Urine Bacteria Rare H (None) /hpf Urine Mucus Rare H (None) /hpf 12/23/21 12/24/21 12/24/21 Range/Units 21:29 06:52 11:20 POC Glucose (mg/dL) 218 H 179 H 219 H (70-110) mg/dL Hemoglobin A1c (0.0-6.0) % Urine Protein (Negative) Urine Glucose (UA) (Negative) Urine Blood (Negative) Ur Leukocyte Esterase (Negative) Urine RBC (0-5) /hpf Urine WBC (0-5) /hpf Urine WBC Clumps (None) /hpf Urine Bacteria (None) /hpf Urine Mucus (None) /hpf Microbiology - Last 24 Hours (Table) 12/22/21 18:20 Blood Culture - Preliminary Blood No Growth after 24 hours 12/22/21 18:47 Urine Culture - Preliminary Urine,Clean Catch Group D Enterococcus Assessment and Plan (1) Sepsis Current Visit: Yes Status: Acute Code(s): A41.9 - SEPSIS, UNSPECIFIED ORGANISM SNOMED Code(s): 08407219 (2) Catheter-associated urinary tract infection Current Visit: No Status: Acute Code(s): T83.511A - I/I REACT D/T INDWELLING URETHRAL CATHETER, INIT; N39.0 - URINARY TRACT INFECTION, SITE NOT SPECIFIED SNOMED Code(s): 515773003 Plan: 1patient presented to hospital with sepsis in this patient with a fever elevated white count elevated lactic acid source and likely catheter associated urinary tract infection. 2the patient Alba catheter has been changed, urine culture from the new Alba has been no pain currently pending. 3urine culture is currently showing enterococcus we will discontinue cefepime and start the patient on Unasyn while waiting for sensitivity to finalize Time with Patient: Less than 30
[2021-12-24 16:50] LABS: Glucose,Whole Blood 98 mg/dL (70-110)
[2021-12-24 20:59] LABS: Glucose,Whole Blood 175 mg/dL (70-110)
[2021-12-24] MEDS: lisinopriL 10 MG TAB PO SCH (22:13)
[2021-12-24] MEDS: risperiDONE 0.5 MG TAB PO SCH (22:13)
[2021-12-24] MEDS: ATORVASTATIN 40 MG TAB PO SCH (22:14)
[2021-12-24] MEDS: MIRTAZAPINE 15 MG TAB PO SCH (22:14)
[2021-12-25] MEDS: AMPICILLIN-SULBACTAM 3 GM in SODIUM CHLORIDE 0.9% 100 ML IVPB SCH ×3 (06:07→21:27)
[2021-12-25] MEDS: SODIUM CHLORIDE 0.9% 1,000 ML IV SCH ×3 (06:07→13:06)
[2021-12-25 07:22] LABS: Glucose,Whole Blood 106 mg/dL (70-110)
[2021-12-25] MEDS: INSULIN ASPART (NovoLOG) 100 UNIT/ML VIAL SQ SCH ×4 (07:31→21:26)
[2021-12-25] MEDS: ASPIRIN 81 MG PO SCH (08:16)
[2021-12-25] MEDS: CLOPIDOGREL 75 MG TAB PO SCH (08:16)
[2021-12-25] MEDS: MULTIVITAMINS, THERA 1 EACH TAB PO SCH (08:17)
[2021-12-25] MEDS: GABAPENTIN 100 MG CAP PO SCH (08:17)
[2021-12-25] MEDS: INSULIN DETEMIR (LEVEMIR) 100 UNIT/ML SYR SQ SCH (08:17)
[2021-12-25] MEDS: metFORMIN 500 MG TAB PO SCH ×2 (08:17→17:21)
[2021-12-25 09:26] LABS: Basophils # (A) 0.05 X 10*3/uL (0.00-0.10); Basophils % (A) 0.6 %; Eosinophils % (A) 13.3 %; HCT 28.5 % (39.6-50.0); HGB 9.3 g/dL (13.0-17.0); Immature Grans, Automated 0.3 %; Lymphocytes # (A) 1.38 X 10*3/uL (0.90-5.00); Lymphocytes % (A) 15.3 %; MCH 27.8 pg (27.0-32.0); MCHC 32.6 g/dL (32.0-37.0); MCV 85.1 fL (80.0-97.0); Mean Platelet Volume 11.1 fL (9.5-12.2); Monocytes # (A) 0.94 X 10*3/uL (0.20-1.00); Monocytes % (A) 10.4 %; NRBC Per 100 WBC 0 /100 WBCS (0.0-0.0); Neutrophils # (A) 5.41 X 10*3/uL (1.80-7.70); Neutrophils % (A) 60.1 %; Platelet Count 187 X 10*3/uL (140-440); RBC 3.35 X 10*6/uL (4.40-5.60); RDW 13.5 % (11.5-14.5); WBC 9.01 X 10*3/uL (4.50-10.00)
[2021-12-25 10:08] LABS: ALT 24 U/L (10-49); AST 27 U/L (14-35); African American GFR (CKD) 95.1 (60.0-200.0); Albumin/Globulin Ratio 1.15 (1.60-3.17); Alkaline Phosphatase 60 U/L (41-126); Blood Urea Nitrogen 16.2 mg/dL (9.0-27.0); Calcium 8.3 mg/dL (8.7-10.3); Carbon Dioxide 21.9 mmol/L (20.0-27.5); Chloride 110 mmol/L (96-109); Globulin 2.6 g/dL (1.6-3.3); Glucose 94 mg/dL (70-110); Non-African American GFR(CKD) 82.1 (60.0-200.0); Potassium 3.6 mmol/L (3.5-5.5); Sodium 141 mmol/L (135-145); Total Bilirubin <0.15 mg/dL (0.30-1.20); Total Protein 5.6 g/dL (6.2-8.2)
[2021-12-25 11:09] LABS: Glucose,Whole Blood 129 mg/dL (70-110)
[2021-12-25] MEDS: ALPRAZolam 0.25 MG TAB PO PRN (13:55)
[2021-12-25 16:40] LABS: Glucose,Whole Blood 160 mg/dL (70-110)
--- NOTE | 2021-12-25 18:00 | PN ---
PROGRESS NOTE SUBJECTIVE: 76-year-old white male with urinary retention requiring suprapubic catheter placement, came into the hospital with fever, concerning for UTI. Alba was changed on 12/23/2021. He came in. He denies any fever or chills. He is currently breathing comfortably. He is pleasantly confused. OBJECTIVE: VITAL SIGNS: Temperature 98, blood pressure 162/73, pulse 98, O2 is 98, respiratory rate 16 to 18. CARDIOVASCULAR: S1, S2. LUNGS: Clear GI: Soft. HEMATOLOGY: Negative Homans. PSYCH: Confused. LABORATORY DATA: White count 12.7, hemoglobin 11.2. UA; large leukocyte esterase and blood. ASSESSMENT: 1. Sepsis secondary to urinary tract infection. 2. Catheter-associated urinary tract infection. 3. Dementia. 4. Lactic acidosis, likely catheter-associated urinary tract infection. Catheter has been changed. Urine culture shows Enterococcus. Discontinue cefepime. We will start the patient on Unasyn and cultures are pending. MMODL / IJN: [id number] /
[2021-12-25 21:01] LABS: Glucose,Whole Blood 123 mg/dL (70-110)
[2021-12-25] MEDS: MIRTAZAPINE 15 MG TAB PO SCH (21:20)
[2021-12-25] MEDS: risperiDONE 0.5 MG TAB PO SCH (21:21)
[2021-12-25] MEDS: lisinopriL 10 MG TAB PO SCH (21:22)
[2021-12-25] MEDS: MELATONIN 3 MG TABLET PO SCH (21:22)
[2021-12-25] MEDS: ATORVASTATIN 40 MG TAB PO SCH (21:22)
[2021-12-26] MEDS: hydrALAZINE HCL 20 MG/ML 1 ML VIAL IVP PRN (02:39)
[2021-12-26] MEDS: AMPICILLIN-SULBACTAM 3 GM in SODIUM CHLORIDE 0.9% 100 ML IVPB SCH ×3 (05:31→21:58)
[2021-12-26] MEDS: ALPRAZolam 0.25 MG TAB PO PRN (05:53)
--- NOTE | 2021-12-26 06:06 | PN ---
PROGRESS NOTE SUBJECTIVE: A 76-year-old white male, multiple comorbidities include urinary retention, suprapubic catheter infection, concern for UTI, was admitted to the hospital, pleasantly confused. No chest pain, cough, vomiting, or diarrhea. OBJECTIVE: VITAL SIGNS: Temperature 98.8, pulse 60, respiratory rate 16 to 18, blood pressure 162/73, and O2 98. CARDIOVASCULAR: S1-S2. LUNGS: Clear. GI: Soft. EXTREMITIES: 2+ edema. White count 12.7, hemoglobin is 11.2. Urine, large blood, leukocyte esterase, 4+ glucose. Sugars in the mid 200s. ASSESSMENT: 1. Sepsis, catheter associated UTI. 2. Lactic acidosis. 3. Pleasantly confused with some dementia. PLAN: Urine culture shows enterococcus, discontinue cefepime and start on Unasyn. Continue current treatments. IV antibiotics. PROGNOSIS: Guarded. ROD / SAAD: [id number] /
[2021-12-26 07:01] LABS: Glucose,Whole Blood 227 mg/dL (70-110)
[2021-12-26] MEDS: INSULIN ASPART (NovoLOG) 100 UNIT/ML VIAL SQ SCH ×4 (07:45→21:59)
[2021-12-26] MEDS: CLOPIDOGREL 75 MG TAB PO SCH (07:47)
[2021-12-26] MEDS: GABAPENTIN 100 MG CAP PO SCH (07:47)
[2021-12-26] MEDS: MULTIVITAMINS, THERA 1 EACH TAB PO SCH (07:47)
[2021-12-26] MEDS: metFORMIN 500 MG TAB PO SCH ×2 (07:47→17:21)
[2021-12-26] MEDS: ASPIRIN 81 MG PO SCH (07:47)
[2021-12-26] MEDS: INSULIN DETEMIR (LEVEMIR) 100 UNIT/ML SYR SQ SCH (07:57)
--- NOTE | 2021-12-26 08:11 | P.PN ---
Subjective Progress Note Date: 12/25/21 Principal diagnosis: Urinary tract infection Patient is a 76-year-old male with multiple comorbidities including a urinary retention requiring suprapubic catheter placement admitted to the hospital with fever concerning for a UTI, the patient Alba catheter was changed 12/23/2021 by the nursing staff. on today's evaluation that is 12/25/2021, the patient remains to be afebrile, the patient is breathing comfortably on room air, patient is not a very good historian, no vomiting no diarrhea or any changes to prevent the nursing staff Objective - Vital Signs Vital signs: Vital Signs Temp 98.1 F 12/25/21 14:00 Pulse 62 12/25/21 14:00 Resp 16 12/25/21 14:00 BP 154/71 12/25/21 14:00 Pulse Ox 97 12/25/21 14:00 FiO2 Intake & Output 12/24/21 12/25/21 12/25/21 18:59 06:59 18:59 Intake Total 240 1140 Output Total 550 450 Balance -310 -450 1140 Intake: Intake, IV Titration 900 Amount Ampicillin-Sulbactam 3 gm 100 In Sodium Chloride 0.9% 100 ml @ 200 mls/hr IVPB Q8H [facility] Rx#:[id number] Sodium Chloride 0.9% 1, 800 000 ml @ 50 mls/hr IV . Q20H [facility] Rx#:[id number] Oral 240 240 Output: Urine 550 450 Other: Voiding Method Indwelling Catheter Indwelling Catheter Indwelling Catheter - Exam GENERAL DESCRIPTION: An elderly male lying in bed in no distress RESPIRATORY SYSTEM: Unlabored breathing , decreased breath sounds at bases HEART: S1 S2 regular rate and rhythm , ABDOMEN: Soft , no tenderness EXTREMITIES: No edema feet - Labs CBC & Chem 7: 12/25/21 03:59 12/25/21 03:59 Labs: Abnormal Lab Results - Last 24 Hours (Table) 12/24/21 12/25/21 12/25/21 Range/Units 20:58 03:59 03:59 RBC 3.35 L (4.40-5.60) X 10*6/uL Hgb 9.3 L (13.0-17.0) g/dL Hct 28.5 L (39.6-50.0) % Eosinophils # 1.20 H (0.04-0.35) X 10*3/uL Chloride 110 H (96-109) mmol/L Anion Gap 9.10 L (10.00-18.00) mmol/L POC Glucose (mg/dL) 175 H (70-110) mg/dL Calcium 8.3 L (8.7-10.3) mg/dL Total Bilirubin <0.15 L (0.30-1.20) mg/dL Total Protein 5.6 L (6.2-8.2) g/dL Albumin 3.0 L (3.8-4.9) g/dL Albumin/Globulin Ratio 1.15 L (1.60-3.17) g/dL 12/25/21 Range/Units 11:07 RBC (4.40-5.60) X 10*6/uL Hgb (13.0-17.0) g/dL Hct (39.6-50.0) % Eosinophils # (0.04-0.35) X 10*3/uL Chloride (96-109) mmol/L Anion Gap (10.00-18.00) mmol/L POC Glucose (mg/dL) 129 H (70-110) mg/dL Calcium (8.7-10.3) mg/dL Total Bilirubin (0.30-1.20) mg/dL Total Protein (6.2-8.2) g/dL Albumin (3.8-4.9) g/dL Albumin/Globulin Ratio (1.60-3.17) g/dL Microbiology - Last 24 Hours (Table) 12/22/21 18:47 Urine Culture - Final Urine,Clean Catch Enterococcus faecalis 12/22/21 18:20 Blood Culture - Preliminary Blood No Growth after 48 hours Assessment and Plan (1) Sepsis Current Visit: Yes Status: Acute Code(s): A41.9 - SEPSIS, UNSPECIFIED ORGANISM SNOMED Code(s): 93892566 (2) Catheter-associated urinary tract infection Current Visit: No Status: Acute Code(s): T83.511A - I/I REACT D/T INDWELLING URETHRAL CATHETER, INIT; N39.0 - URINARY TRACT INFECTION, SITE NOT SPECIFIED SNOMED Code(s): 757736971 Plan: 1patient presented to hospital with sepsis in this patient with a fever elevated white count elevated lactic acid source and likely catheter associated urinary tract infection. 2the patient Alba catheter has been changed, urine culture from the new Alba has been no pain currently pending. 3urine culture has been finalized as enterococcus for which the patient is covered with Unasyn finishing therapy with oral Augmentin Time with Patient: Less than 30
[2021-12-26 09:34] LABS: African American GFR (CKD) 99.9 (60.0-200.0); Non-African American GFR(CKD) 86.2 (60.0-200.0)
[2021-12-26] MEDS: SODIUM CHLORIDE 0.9% 1,000 ML IV SCH (09:41)
--- NOTE | 2021-12-26 10:36 | CDI ---
Documentation Clarification Form Date: 12/26/2021 From: Danya Worrell RN, CCDS Admit Date: 12/22/2021 09:54:00 PM Patient Name: Newton Molina Visit Number: [id number] Discharge Date: ATTENTION: The Clinical Documentation Specialists (CDI) and [facility] Coding Staff appreciate your assistance in clarifying documentation. Please respond to the clarification below the line at the bottom and electronically sign. The CDI & [facility] Coding staff will review the response and follow-up if needed. Please note: Queries are made part of the Legal Health Record. If you have any questions, please contact the author of this message via ITS. Dr. Mandeep Waters A pressure ulcer is documented in the nursing wound care assessment on 12/23/2021. Based on this information and the findings below, is there an additional diagnosis that is clinically appropriate for this patient? History/Risk Factors: CVA, Dementia, Diabetes Mellitus, Hypertension BPH, UTI, muscle weakness Clinical Indicators: 76year-old male present with fever ruled in for catheter associated UTI with sepsis. He has right side weakness/aphasia. He is bedbound. Right upper extremity rigid, contractures. 12/22 Vital signs: 175/95 120 16 100.7 95 % RA 12/23 nursing wound assessment has documented a stage 1 coccyx pressure, 12/24/21 nursing has unstageable coccyx pressure ulcer. Location: coccyx Wound description: Unstageable Treatment: Turn/reposition Q2 hours Monitor skin integrity Is there an additional diagnosis that is clinically appropriate for this patient? [ ] Coccyx] Pressure Ulcer Stage, present on admission [ ] Coccyx pressure Ulcer unstageable, present on admission [ ] Other condition, please specify [ ] Unable to determine Clinical Definitions: Stage 1 Pressure Ulcer: intact skin, non-blanching redness of local area Stage 2 Pressure Ulcer: Partial thickness, loss of dermis, pink wound bed Stage 3 Pressure Ulcer: Full thickness tissue loss Stage 4 Pressure Ulcer: Full thickness tissue loss with exposed bone, tendon, or muscle. Unstageable pressure ulcer: Full thickness tissue loss in which the base of the ulcer is covered by slough (yellow, galdamez, woods, green or brown) and/or eschar (galdamez, brown or black) in the wound bed. (Template Last Revised: June 2020) MTDD
[2021-12-26 11:10] LABS: Glucose,Whole Blood 184 mg/dL (70-110)
--- NOTE | 2021-12-26 12:28 | P.PN ---
Subjective Progress Note Date: 12/26/21 Principal diagnosis: Urinary tract infection Patient is a 76-year-old male with multiple comorbidities including a urinary retention requiring suprapubic catheter placement admitted to the hospital with fever concerning for a UTI, the patient Alba catheter was changed 12/23/2021 by the nursing staff. on today's evaluation that is 12/26/2021, the patient continues to be afebrile, the patient is breathing comfortably on room air, patient denied any chest pain or cough when asked specifically no vomiting no diarrhea reported by the nurse. Objective - Vital Signs Vital signs: Vital Signs Temp 97.8 F 12/26/21 08:00 Pulse 59 L 12/26/21 08:00 Resp 17 12/26/21 08:00 BP 159/69 12/26/21 08:00 Pulse Ox 97 12/26/21 08:00 FiO2 Intake & Output 12/25/21 12/26/21 12/26/21 18:59 06:59 18:59 Intake Total 1140 120 Output Total 900 Balance 1140 -900 120 Intake: Intake, IV Titration 900 Amount Ampicillin-Sulbactam 3 gm 100 In Sodium Chloride 0.9% 100 ml @ 200 mls/hr IVPB Q8H [facility] Rx#:[id number] Sodium Chloride 0.9% 1, 800 000 ml @ 50 mls/hr IV . Q20H [facility] Rx#:[id number] Oral 240 120 Output: Urine 900 Other: Voiding Method Indwelling Catheter Indwelling Catheter Indwelling Catheter - Exam GENERAL DESCRIPTION: An elderly male lying in bed in no distress RESPIRATORY SYSTEM: Unlabored breathing , decreased breath sounds at bases HEART: S1 S2 regular rate and rhythm , ABDOMEN: Soft , no tenderness EXTREMITIES: No edema feet - Labs CBC & Chem 7: 12/25/21 03:59 12/26/21 04:22 Labs: Abnormal Lab Results - Last 24 Hours (Table) 12/25/21 12/25/21 12/26/21 Range/Units 16:39 20:58 06:59 POC Glucose (mg/dL) 160 H 123 H 227 H (70-110) mg/dL 12/26/21 Range/Units 11:08 POC Glucose (mg/dL) 184 H (70-110) mg/dL Microbiology - Last 24 Hours (Table) 12/22/21 18:20 Blood Culture - Preliminary Blood No Growth after 72 hours Assessment and Plan (1) Sepsis Current Visit: Yes Status: Acute Code(s): A41.9 - SEPSIS, UNSPECIFIED ORGANISM SNOMED Code(s): 15586036 (2) Catheter-associated urinary tract infection Current Visit: No Status: Acute Code(s): T83.511A - I/I REACT D/T INDWELLING URETHRAL CATHETER, INIT; N39.0 - URINARY TRACT INFECTION, SITE NOT SPECIFIED SNOMED Code(s): 812808746 Plan: 1patient presented to hospital with sepsis in this patient with a fever elevated white count elevated lactic acid source and likely catheter associated urinary tract infection. 2the patient Alba catheter has been changed, urine culture from the new Alba has been no pain currently pending. 3urine culture has been finalized as enterococcus for which the patient is covered with Unasyn, patient seemed to showing clinical improvement will finish therapy oral Augmentin 7 days Time with Patient: Less than 30
[2021-12-26 14:07] VITALS: BMI 30.1
[2021-12-26 16:20] LABS: Glucose,Whole Blood 181 mg/dL (70-110)
[2021-12-26 20:43] LABS: Glucose,Whole Blood 168 mg/dL (70-110)
[2021-12-26] MEDS: MIRTAZAPINE 15 MG TAB PO SCH (21:58)
[2021-12-26] MEDS: MELATONIN 3 MG TABLET PO SCH (21:59)
[2021-12-26] MEDS: lisinopriL 10 MG TAB PO SCH (21:59)
[2021-12-26] MEDS: risperiDONE 0.5 MG TAB PO SCH (21:59)
[2021-12-26] MEDS: ATORVASTATIN 40 MG TAB PO SCH (21:59)
--- NOTE | 2021-12-27 04:04 | PN ---
PROGRESS NOTE SUBJECTIVE: A 76-year-old white male with UTI and sepsis. Remains on broad-spectrum antibiotics. He is pleasantly confused. He is eating well with . OBJECTIVE: CARDIOVASCULAR: S1, S2. LUNGS: Wheezes x4. HEMATOLOGY: Negative Homans. PSYCH: Fair mood and affect. ASSESSMENT: 1. Urinary tract infection. 2. Sepsis. 3. Metabolic encephalopathy. 4. Dementia. 5. Delirium. Prognosis guarded. PT, OT. ROD / CRISTOBALN: [id number] /
[2021-12-27] MEDS: AMPICILLIN-SULBACTAM 3 GM in SODIUM CHLORIDE 0.9% 100 ML IVPB SCH ×3 (05:03→21:08)
[2021-12-27 07:09] LABS: Glucose,Whole Blood 201 mg/dL (70-110)
[2021-12-27] MEDS: ASPIRIN 81 MG PO SCH (11:23)
[2021-12-27] MEDS: CLOPIDOGREL 75 MG TAB PO SCH (11:23)
[2021-12-27] MEDS: metFORMIN 500 MG TAB PO SCH ×2 (11:23→17:21)
[2021-12-27] MEDS: MULTIVITAMINS, THERA 1 EACH TAB PO SCH (11:23)
[2021-12-27] MEDS: GABAPENTIN 100 MG CAP PO SCH (11:23)
[2021-12-27] MEDS: INSULIN ASPART (NovoLOG) 100 UNIT/ML VIAL SQ SCH ×4 (11:23→21:08)
[2021-12-27] MEDS: INSULIN DETEMIR (LEVEMIR) 100 UNIT/ML SYR SQ SCH (11:24)
[2021-12-27 12:11] LABS: Glucose,Whole Blood 182 mg/dL (70-110)
[2021-12-27] MEDS: SODIUM CHLORIDE 0.9% 1,000 ML IV SCH (14:26)
[2021-12-27 16:55] LABS: Glucose,Whole Blood 110 mg/dL (70-110)
[2021-12-27] MEDS: MIRTAZAPINE 15 MG TAB PO SCH (20:26)
[2021-12-27] MEDS: MELATONIN 3 MG TABLET PO SCH (20:26)
[2021-12-27] MEDS: ATORVASTATIN 40 MG TAB PO SCH (20:26)
[2021-12-27] MEDS: lisinopriL 10 MG TAB PO SCH (20:26)
[2021-12-27] MEDS: risperiDONE 0.5 MG TAB PO SCH (20:27)
[2021-12-27] MEDS: ALPRAZolam 0.25 MG TAB PO PRN (20:45)
[2021-12-27 20:55] LABS: Glucose,Whole Blood 103 mg/dL (70-110)
[2021-12-27] MEDS: hydrALAZINE HCL 20 MG/ML 1 ML VIAL IVP PRN (21:06)
[2021-12-27] MEDS ORDERED: ZIPRASIDONE 20 MG VIAL IM STA (22:17)
[2021-12-28] MEDS: AMPICILLIN-SULBACTAM 3 GM in SODIUM CHLORIDE 0.9% 100 ML IVPB SCH ×2 (05:58→15:12)
[2021-12-28] MEDS: SODIUM CHLORIDE 0.9% 1,000 ML IV SCH (05:59)
[2021-12-28 07:15] LABS: Glucose,Whole Blood 94 mg/dL (70-110)
[2021-12-28] MEDS: INSULIN ASPART (NovoLOG) 100 UNIT/ML VIAL SQ SCH ×4 (07:56→22:30)
[2021-12-28] MEDS: ASPIRIN 81 MG PO SCH (09:11)
[2021-12-28] MEDS: CLOPIDOGREL 75 MG TAB PO SCH (09:11)
[2021-12-28] MEDS: GABAPENTIN 100 MG CAP PO SCH (09:11)
[2021-12-28] MEDS: metFORMIN 500 MG TAB PO SCH ×2 (09:11→17:21)
[2021-12-28] MEDS: INSULIN DETEMIR (LEVEMIR) 100 UNIT/ML SYR SQ SCH (09:15)
[2021-12-28] MEDS: MULTIVITAMINS, THERA 1 EACH TAB PO SCH (11:18)
[2021-12-28 11:47] LABS: Glucose,Whole Blood 158 mg/dL (70-110)
[2021-12-28 16:42] LABS: Glucose,Whole Blood 132 mg/dL (70-110)
[2021-12-28 20:44] LABS: Glucose,Whole Blood 206 mg/dL (70-110)
[2021-12-28] MEDS: ATORVASTATIN 40 MG TAB PO SCH (22:29)
[2021-12-28] MEDS: AMOXIC-POT CLAV 875-125MG 1 EACH TAB PO SCH (22:29)
[2021-12-28] MEDS: MELATONIN 3 MG TABLET PO SCH (22:30)
[2021-12-28] MEDS: MIRTAZAPINE 15 MG TAB PO SCH (22:30)
[2021-12-28] MEDS: lisinopriL 10 MG TAB PO SCH (22:30)
[2021-12-28] MEDS: risperiDONE 0.5 MG TAB PO SCH (22:30)
[2021-12-29] MEDS: SODIUM CHLORIDE 0.9% 1,000 ML IV SCH (04:39)
[2021-12-29 07:05] LABS: Glucose,Whole Blood 151 mg/dL (70-110)
[2021-12-29] MEDS: INSULIN ASPART (NovoLOG) 100 UNIT/ML VIAL SQ SCH ×3 (08:00→17:30)
[2021-12-29] MEDS: INSULIN DETEMIR (LEVEMIR) 100 UNIT/ML SYR SQ SCH (08:02)
[2021-12-29] MEDS: metFORMIN 500 MG TAB PO SCH ×2 (08:03→17:31)
[2021-12-29] MEDS: GABAPENTIN 100 MG CAP PO SCH (08:03)
[2021-12-29] MEDS: AMOXIC-POT CLAV 875-125MG 1 EACH TAB PO SCH ×2 (08:03→23:18)
[2021-12-29] MEDS: MULTIVITAMINS, THERA 1 EACH TAB PO SCH (08:03)
[2021-12-29] MEDS: CLOPIDOGREL 75 MG TAB PO SCH (08:03)
[2021-12-29] MEDS: ASPIRIN 81 MG PO SCH (08:03)
[2021-12-29 11:57] LABS: Glucose,Whole Blood 151 mg/dL (70-110)
--- NOTE | 2021-12-29 12:25 | P.GSCN ---
History of Present Illness Consult date: 12/29/21 Reason for Consult: SPC malfunctions Requesting physician: Mandeep Waters History of present illness: The patient is a 76-year-old white male with a suprapubic cystostomy tube, presumably placed for urinary retention. He is unresponsive and unable to provide history. His SP tube was changed during this hospitalization, but he has continued to void per urethra. I am consulted for this reason. A urine culture has shown enterococcus. Blood cultures are negative. 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 History of Any Multi-Drug Resistant Organisms: None Reported Past Surgical History: Tonsillectomy Additional Past Surgical History / Comment(s): Suprapubic catheter Past Anesthesia/Blood Transfusion Reactions: No Reported Reaction Past Psychological History: Anxiety, Depression Smoking Status: Never smoker Past Alcohol Use History: Unable to Obtain Past Drug Use History: Unable to Obtain - Past Family History Mother Family Medical History: Diabetes Mellitus Father History Unknown: Yes Medications and Allergies Home Medications Medication Instructions Recorded Confirmed Type lisinopriL [Zestril] 10 mg PO HS 10/20/20 12/22/21 History Melatonin 3 mg PO HS 12/29/20 12/22/21 History Mirtazapine 7.5 mg PO HS 12/29/20 12/22/21 History Multivitamins, Thera [Multivitamin 1 tab PO DAILY 04/06/21 12/22/21 History (formulary)] metFORMIN HCL 500 mg PO BID 04/06/21 12/22/21 History Clopidogrel [Plavix] 75 mg PO DAILY tab 04/11/21 12/22/21 Rx Atorvastatin Calcium [Lipitor] 40 mg PO HS 10/24/21 12/22/21 History risperiDONE [RisperDAL] 1.5 mg PO HS 10/24/21 12/22/21 History Acetaminophen [Tylenol 8 Hour] 650 mg PO Q6H PRN 12/22/21 12/22/21 History Aspirin 81 mg PO DAILY 12/22/21 12/22/21 History Insulin Glargine,Hum.rec.anlog 30 units SQ DAILY 12/22/21 12/22/21 History [Lantus Solostar Pen] Insulin Lispro [humaLOG Kwikpen] 10 unit SQ AC-TID@,,16 12/22/21 12/22/21 History Insulin Lispro [humaLOG Kwikpen] See Protocol SQ ACHS@07,,,20 12/22/21 12/22/21 History PRN Loperamide [Imodium] 2 - 4 mg PO TID PRN MDD 8 MG 12/22/21 12/22/21 History Amoxic-Pot Clav 875-125Mg 1 each PO Q12HR 7 Days #14 tab 12/28/21 Rx [Augmentin 875-125] Allergies Allergy/AdvReac Type Severity Reaction Status Date / Time latex Allergy Rash/Hives Verified 10/24/21 19:54 Surgical - Exam Vital Signs Pulse Resp BP Pulse Ox 104 H 16 169/81 94 L 12/22/21 18:15 12/22/21 18:15 12/22/21 18:15 12/22/21 18:15 - General well developed, well nourished, no distress - Respiratory normal respiratory effort - Abdomen Abdomen: soft, non tender, no guarding, no rigid, no rebound - Genitourinary normal penis with no external lesions, testicles non-tender - Psychiatric oriented to time, oriented to person, oriented to place, speech is normal, memory intact Results - Labs 12/25/21 03:59 12/26/21 04:22 Abnormal Lab Results - Last 24 Hours (Table) 12/28/21 12/28/21 12/29/21 Range/Units 16:40 20:42 07:03 POC Glucose (mg/dL) 132 H 206 H 151 H (70-110) mg/dL 12/29/21 Range/Units 11:55 POC Glucose (mg/dL) 151 H (70-110) mg/dL Microbiology - Last 24 Hours (Table) 12/22/21 18:20 Blood Culture - Final Blood No Growth after 144 hours Assessment and Plan (1) Urinary incontinence Current Visit: Yes Status: Acute Code(s): R32 - UNSPECIFIED URINARY INCONTINENCE SNOMED Code(s): 190497505 Plan: The SP tube is intact. The site looks okay. The catheter was irrigated, and verified to be both patent and properly positioned. In summary, the SP tube is functioning normally. Urinary leakage per urethra may be the result of bladder spasms, and he may benefit from overactive bladder medication. Thank you for allowing me to participate in Mr. Molina's care. Please notify me if I can be of any further assistance. Time with Patient: Less than 30
--- NOTE | 2021-12-29 16:51 | P.PN ---
Subjective Progress Note Date: 12/27/21 Principal diagnosis: Urinary tract infection Patient is a 76-year-old male with multiple comorbidities including a urinary retention requiring suprapubic catheter placement admitted to the hospital with fever concerning for a UTI, the patient Alba catheter was changed 12/23/2021 by the nursing staff. on today's evaluation that is 12/27/2021, The patient remains to be afebrile, the patient is breathing comfortably room air with good historian no vomiting or diarrhea was reported by the nursing staff Objective - Vital Signs Vital signs: Vital Signs Temp 98.6 F 12/27/21 08:00 Pulse 97 12/27/21 08:00 Resp 18 12/27/21 08:15 BP 169/69 12/27/21 08:00 Pulse Ox 97 12/27/21 08:00 FiO2 Intake & Output 12/26/21 12/27/21 12/27/21 18:59 06:59 18:59 Intake Total 240 1000 Output Total 900 2000 Balance -660 -1000 Weight 95.254 kg Intake: Intake, IV Titration 1000 Amount Sodium Chloride 0.9% 1, 1000 000 ml @ 50 mls/hr IV . Q20H [facility] Rx#:[id number] Oral 240 Output: Urine 900 2000 Other: Voiding Method Indwelling Catheter Indwelling Catheter Indwelling Catheter - Exam GENERAL DESCRIPTION: An elderly male lying in bed in no distress RESPIRATORY SYSTEM: Unlabored breathing , decreased breath sounds at bases HEART: S1 S2 regular rate and rhythm , ABDOMEN: Soft , no tenderness EXTREMITIES: No edema feet - Labs CBC & Chem 7: 12/25/21 03:59 12/26/21 04:22 Labs: Abnormal Lab Results - Last 24 Hours (Table) 12/26/21 12/26/21 12/27/21 Range/Units 16:19 20:33 07:08 POC Glucose (mg/dL) 181 H 168 H 201 H (70-110) mg/dL 12/27/21 Range/Units 12:10 POC Glucose (mg/dL) 182 H (70-110) mg/dL Microbiology - Last 24 Hours (Table) 12/22/21 18:20 Blood Culture - Preliminary Blood No Growth after 96 hours Assessment and Plan (1) Sepsis Current Visit: Yes Status: Acute Code(s): A41.9 - SEPSIS, UNSPECIFIED ORG ANISM SNOMED Code(s): 71822243 (2) Catheter-associated urinary tract infection Current Visit: No Status: Acute Code(s): T83.511A - I/I REACT D/T INDWELLING URETHRAL CATHETER, INIT; N39.0 - URINARY TRACT INFECTION, SITE NOT SPECIFIED SNOMED Code(s): 986616056 Plan: 1patient presented to hospital with sepsis in this patient with a fever elevated white count elevated lactic acid source and likely catheter associated urinary tract infection. 2the patient Alba catheter has been changed, 3urine culture has been finalized as enterococcus for which the patient is covered with Unasyn, Patient to continue with the Unasyn while inpatient finishing therapy with oral Augmentin Time with Patient: Less than 30
--- NOTE | 2021-12-29 16:53 | P.PN ---
Subjective Progress Note Date: 12/28/21 Principal diagnosis: Urinary tract infection Patient is a 76-year-old male with multiple comorbidities including a urinary retention requiring suprapubic catheter placement admitted to the hospital with fever concerning for a UTI, the patient Alba catheter was changed 12/23/2021 by the nursing staff. on today's evaluation that is 12/28/2021, The patient continues to be afebrile the patient is breathing comfortably room air, patient did not answer any questions no vomiting or diarrhea was reported by the nursing staff Objective - Vital Signs Vital signs: Vital Signs Temp 98.7 F 12/28/21 09:45 Pulse 65 12/28/21 09:45 Resp 18 12/28/21 09:45 BP 176/70 12/28/21 09:45 Pulse Ox 96 12/28/21 09:45 FiO2 Intake & Output 12/27/21 12/28/21 12/28/21 18:59 06:59 18:59 Output Total 1400 2350 Balance -1400 -2350 Output: Urine 1400 2350 Other: Voiding Method Indwelling Catheter Indwelling Catheter - Exam GENERAL DESCRIPTION: An elderly male lying in bed in no distress RESPIRATORY SYSTEM: Unlabored breathing , decreased breath sounds at bases HEART: S1 S2 regular rate and rhythm , ABDOMEN: Soft , no tenderness EXTREMITIES: No edema feet - Labs CBC & Chem 7: 12/25/21 03:59 12/26/21 04:22 Labs: Abnormal Lab Results - Last 24 Hours (Table) 12/28/21 Range/Units 11:45 POC Glucose (mg/dL) 158 H (70-110) mg/dL Microbiology - Last 24 Hours (Table) 12/22/21 18:20 Blood Culture - Preliminary Blood No Growth after 120 hours Assessment and Plan (1) Sepsis Current Visit: Yes Status: Acute Code(s): A41.9 - SEPSIS, UNSPECIFIED ORGANISM SNOMED Code(s): 72395765 (2) Catheter-associated urinary tract infection Current Visit: No Status: Acute Code(s): T83.511A - I/I REACT D/T INDWELLING URETHRAL CATHETER, INIT; N39.0 - URINARY TRACT INFECTION, SITE NOT SPECIFIED SNOMED Code(s): 107737308 Plan: 1patient presented to hospital with sepsis in this patient with a fever elevated white count elevated lactic acid source and likely catheter associated urinary tract infection. 2the patient Alba catheter has been changed, 3Patient seem to have shown clinical improvement and urine culture has been finalized as enterococcus for which the patient is covered with Unasyn, Patient to continue with the Unasyn while inpatient finishing therapy with oral Augmentin Time with Patient: Less than 30
--- NOTE | 2021-12-29 16:54 | P.PN ---
Subjective Progress Note Date: 12/29/21 Principal diagnosis: Urinary tract infection Patient is a 76-year-old male with multiple comorbidities including a urinary retention requiring suprapubic catheter placement admitted to the hospital with fever concerning for a UTI, the patient Alab catheter was changed 12/23/2021 by the nursing staff. on today's evaluation that is 12/29/2021, The patient remains to be afebrile the patient is breathing comfortably on room air now specifically denies any chest pain no vomiting or diarrhea was reported by the nursing staff Objective - Vital Signs Vital signs: Vital Signs Temp 97.8 F 12/29/21 08:00 Pulse 66 12/29/21 08:00 Resp 12 12/29/21 08:00 BP 165/73 12/29/21 08:00 Pulse Ox 96 12/29/21 08:00 FiO2 Intake & Output 12/28/21 12/29/21 12/29/21 18:59 06:59 18:59 Output Total 700 Balance -700 Output: Urine 700 Other: Voiding Method Indwelling Catheter # Voids 2 1 # Bowel Movements 1 - Exam GENERAL DESCRIPTION: An elderly male lying in bed in no distress RESPIRATORY SYSTEM: Unlabored breathing , decreased breath sounds at bases HEART: S1 S2 regular rate and rhythm , ABDOMEN: Soft , no tenderness EXTREMITIES: No edema feet - Labs CBC & Chem 7: 12/25/21 03:59 12/26/21 04:22 Labs: Abnormal Lab Results - Last 24 Hours (Table) 12/28/21 12/28/21 12/29/21 Range/Units 16:40 20:42 07:03 POC Glucose (mg/dL) 132 H 206 H 151 H (70-110) mg/dL 12/29/21 Range/Units 11:55 POC Glucose (mg/dL) 151 H (70-110) mg/dL Microbiology - Last 24 Hours (Table) 12/22/21 18:20 Blood Culture - Final Blood No Growth after 144 hours Assessment and Plan (1) Sepsis Current Visit: Yes Status: Acute Code(s): A41.9 - SEPSIS, UNSPECIFIED ORGANISM SNOMED Code(s): 67819325 (2) Catheter-associated urinary tract infection Current Visit: No Status: Acute Code(s): T83.511A - I/I REACT D/T INDWELLING URETHRAL CATHETER, INIT; N39.0 - URINARY TRACT INFECTION, SITE NOT SPECIFIED SNOMED Code(s): 966092245 Plan: 1patient presented to hospital with sepsis in this patient with a fever elevated white count elevated lactic acid source and likely catheter associated urinary tract infection. 2the patient Alba catheter has been changed and urine culture has been finalized as enterococcus 3-Patient has shown overall clinical improvement antibiotic has been switched over to oral Augmentin to continue for about 5 to 7 days to finish his course of therapy Time with Patient: Less than 30
[2021-12-29 17:14] LABS: Glucose,Whole Blood 171 mg/dL (70-110)
[2021-12-29 19:09] LABS: Glucose,Whole Blood 183 mg/dL (70-110)
[2021-12-29] MEDS: ATORVASTATIN 40 MG TAB PO SCH (23:18)
[2021-12-29] MEDS: lisinopriL 10 MG TAB PO SCH (23:18)
[2021-12-29] MEDS: MELATONIN 3 MG TABLET PO SCH (23:18)
[2021-12-29] MEDS: MIRTAZAPINE 15 MG TAB PO SCH (23:18)
[2021-12-29] MEDS: risperiDONE 0.5 MG TAB PO SCH (23:19)
[2021-12-30] MEDS: INSULIN ASPART (NovoLOG) 100 UNIT/ML VIAL SQ SCH ×3 (00:02→14:26)
[2021-12-30 00:03] LABS: Glucose,Whole Blood 124 mg/dL (70-110)
[2021-12-30] MEDS: amLODIPine 5 MG TAB PO SCH ×2 (07:22→08:56)
[2021-12-30 07:55] LABS: Glucose,Whole Blood 115 mg/dL (70-110)
[2021-12-30] MEDS: MULTIVITAMINS, THERA 1 EACH TAB PO SCH (08:55)
[2021-12-30] MEDS: AMOXIC-POT CLAV 875-125MG 1 EACH TAB PO SCH (08:55)
[2021-12-30] MEDS: CLOPIDOGREL 75 MG TAB PO SCH (08:55)
[2021-12-30] MEDS: GABAPENTIN 100 MG CAP PO SCH (08:55)
[2021-12-30] MEDS: metFORMIN 500 MG TAB PO SCH (08:56)
[2021-12-30] MEDS: ASPIRIN 81 MG PO SCH (08:56)
[2021-12-30] MEDS: INSULIN DETEMIR (LEVEMIR) 100 UNIT/ML SYR SQ SCH (08:56)
[2021-12-30 09:06] VITALS: BP 153/69; PULSE 54; RESP 14; TEMP 97.8
[2021-12-30 11:20] LABS: Glucose,Whole Blood 133 mg/dL (70-110)
--- NOTE | 2021-12-30 13:02 | P.DS ---
Providers Date of admission: 12/22/21 21:54 Expected date of discharge: 12/30/21 Attending physician: Mandeep Waters Consults: 12/22/21 21:54 Consult Physician Routine Consulting Provider: Davey Etienne Consult Reason/Comments: uti Do you want consulting provider notified?: Yes 12/28/21 18:55 Consult Physician Urgent Consulting Provider: Everardo Patel Consult Reason/Comments: Assess suprapubic placement, pt urinating through urethra Do you want consulting provider notified?: Yes Primary care physician: Physician Nonstaff Hospital Course: Presenting complaint: UTI Hospital course: This is a 76-year-old patient, with multiple medical problems. Has a suprapubic tube. Admitted with UTI. Urine culture finalized to Enterococcus faecalis. Seen by ID. He'll be discharged on Augmentin. Today: Patient tolerating diet. Comfortable. Because of dementia and really doesn't communicate much. Follows commands. Discussed with the nurse. Discussion and discharge planning more than 35 minutes Physical exam: On exam: 97.8, 54, 14, 153/69, 96% room air Gen. appearance sitting up, comfortable Lungs: Decreased breath sounds Cardiovascular: First seconds are normal Psychiatry: Limited historian INVESTIGATIONS, reviewed in the clinical context: White count 9.01 hemoglobin 9.3 platelets 187 potassium 3.6 creatinine 0.9 EKG and chest x-ray unremarkable Assessment and plan: -Acute UTI with cystitis secondary to suprapubic catheter secondary to Enterococcus faecalis Complete 7 days of Augmentin -Major cognitive impairment due to late onset Alzheimer's dementia -Diabetes mellitus type 2 Metformin, Accu-Cheks, Lantus -Essential hypertension Norvasc, Zestril -Hyperlipidemia Lipitor Disposition: [facility] Plan - Discharge Summary Discharge Rx Participant: No New Discharge Prescriptions: New amLODIPine [Norvasc] 5 mg PO DAILY #0 tab Amoxic-Pot Clav 875-125Mg [Augmentin 875-125] 1 each PO Q12HR 7 Days #14 tab Continue Melatonin 3 mg PO HS metFORMIN HCL 500 mg PO BID Aspirin 81 mg PO DAILY Insulin Lispro [humaLOG Kwikpen] 10 unit SQ AC-TID@07,11,16 Loperamide [Imodium] 2 - 4 mg PO TID PRN MDD 8 MG PRN Reason: Diarrhea lisinopriL [Zestril] 10 mg PO HS Mirtazapine 7.5 mg PO HS Multivitamins, Thera [Multivitamin (formulary)] 1 tab PO DAILY Clopidogrel [Plavix] 75 mg PO DAILY tab risperiDONE [RisperDAL] 1.5 mg PO HS Atorvastatin Calcium [Lipitor] 40 mg PO HS Acetaminophen [Tylenol 8 Hour] 650 mg PO Q6H PRN PRN Reason: Pain Or Fever > 100.5 Insulin Glargine,Hum.rec.anlog [Lantus Solostar Pen] 30 units SQ DAILY Insulin Lispro [humaLOG Kwikpen] See Protocol SQ ACHS@,,,20 PRN PRN Reason: HIGH BLOOD SUGAR Discontinued Gabapentin [Neurontin] 100 mg PO DAILY #10 cap Ciprofloxacin HCl [Cipro] 500 mg PO BID HYDROcodone/APAP 5-325MG [[place] 5-325] 1 tab PO Q6HR PRN PRN Reason: Pain Nitrofurantoin Monohyd/M-Cryst [Macrobid] 100 mg PO BID Discharge Medication List lisinopriL [Zestril] 10 mg PO HS 10/20/20 [History] Melatonin 3 mg PO HS 12/29/20 [History] Mirtazapine 7.5 mg PO HS 12/29/20 [History] Multivitamins, Thera [Multivitamin (formulary)] 1 tab PO DAILY 04/06/21 [History] metFORMIN HCL 500 mg PO BID 04/06/21 [History] Clopidogrel [Plavix] 75 mg PO DAILY tab 04/11/21 [Rx] Atorvastatin Calcium [Lipitor] 40 mg PO HS 10/24/21 [History] risperiDONE [RisperDAL] 1.5 mg PO HS 10/24/21 [History] Acetaminophen [Tylenol 8 Hour] 650 mg PO Q6H PRN 12/22/21 [History] Aspirin 81 mg PO DAILY 12/22/21 [History] Insulin Glargine,Hum.rec.anlog [Lantus Solostar Pen] 30 units SQ DAILY 12/22/21 [History] Insulin Lispro [humaLOG Kwikpen] 10 unit SQ AC-TID@,,16 12/22/21 [History] Insulin Lispro [humaLOG Kwikpen] See Protocol SQ ACHS@,,16,20 PRN 12/22/21 [History] Loperamide [Imodium] 2 - 4 mg PO TID PRN MDD 8 MG 12/22/21 [History] Amoxic-Pot Clav 875-125Mg [Augmentin 875-125] 1 each PO Q12HR 7 Days #14 tab 12/28/21 [Rx] amLODIPine [Norvasc] 5 mg PO DAILY #0 tab 12/29/21 [Rx] Follow up Appointment(s)/Referral(s): Justin luna [place], [NON-STAFF] - As Needed Nonstaff,Physician [Primary Care Provider] - 1-2 days Patient Instructions/Handouts: Urinary Tract Infection in Men (DC) Discharge Disposition: TRANSFER TO SNF/ECF
--- NOTE | 2021-12-30 13:35 | PN ---
PROGRESS NOTE SUBJECTIVE: A 76-year-old white male came in with UTI with urosepsis. He began Geodon 20 mg last night, he was spitting at the nurses and yelling at them which calmed him down. He is being treated for urosepsis, will switch to oral antibiotics to go home tomorrow. He is feeling good with nurse's family service assistant. OBJECTIVE: CARDIOVASCULAR: S1-S2. LUNGS: Clear. GI: Soft. NEUROLOGIC: Pleasantly confused. HEMATOLOGY: Negative Homans. 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 PROGNOSIS: Guarded. FOLLOWUP: As an outpatient. Discharge home tomorrow most likely. MMODL / IJN: [id number] /
--- NOTE | 2021-12-30 15:52 | P.PN ---
Subjective Progress Note Date: 12/30/21 Principal diagnosis: Urinary tract infection Patient is a 76-year-old male with multiple comorbidities including a urinary retention requiring suprapubic catheter placement admitted to the hospital with fever concerning for a UTI, the patient Alba catheter was changed 12/23/2021 by the nursing staff. on today's evaluation that is 12/30/2021, The patient continues to be afebrile the patient is breathing comfortably on room air, not a very good historian no vomiting no diarrhea or any other changes reported by the nursing staff Objective - Vital Signs Vital signs: Vital Signs Temp 97.8 F 12/30/21 07:51 Pulse 54 L 12/30/21 07:51 Resp 14 12/30/21 07:51 BP 153/69 12/30/21 07:51 Pulse Ox 96 12/30/21 07:51 FiO2 Intake & Output 12/29/21 12/30/21 12/30/21 18:59 06:59 18:59 Intake Total 940 Output Total 1000 1175 Balance -60 -1175 Intake: Oral 940 Output: Urine 1000 1175 Suprapubic 625 Other: Voiding Method Indwelling Catheter Indwelling Catheter - Exam GENERAL DESCRIPTION: An elderly male lying in bed in no distress RESPIRATORY SYSTEM: Unlabored breathing , decreased breath sounds at bases HEART: S1 S2 regular rate and rhythm , ABDOMEN: Soft , no tenderness EXTREMITIES: No edema feet - Labs CBC & Chem 7: 12/25/21 03:59 12/26/21 04:22 Labs: Abnormal Lab Results - Last 24 Hours (Table) 12/29/21 12/29/21 12/30/21 Range/Units 17:13 19:02 00:00 POC Glucose (mg/dL) 171 H 183 H 124 H (70-110) mg/dL 12/30/21 12/30/21 Range/Units 07:54 11:19 POC Glucose (mg/dL) 115 H 133 H (70-110) mg/dL Assessment and Plan (1) Sepsis Current Visit: Yes Status: Acute Code(s): A41.9 - SEPSIS, UNSPECIFIED ORGANISM SNOMED Code(s): 88323239 (2) Catheter-associated urinary tract infection Current Visit: No Status: Acute Code(s): T83.511A - I/I REACT D/T INDWELLING URETHRAL CATHETER, INIT; N39.0 - URINARY TRACT INFECTION, SITE NOT SPECIFIED SNOMED Code(s): 864943000 Plan: 1patient presented to hospital with sepsis in this patient with a fever elevated white count elevated lactic acid source and likely catheter associated urinary tract infection. 2the patient Alba catheter has been changed and urine culture has been finalized as enterococcus 3-Patient has shown overall clinical improvement patient to continue with oral Augmentin for another 5 days to finish course therapy Time with Patient: Less than 30
--- NOTE | 2021-12-30 17:50 | DS ---
DISCHARGE SUMMARY DISCHARGE DIAGNOSES: 1. Urinary tract infection. 2. Suprapubic catheter. 3. Dementia. 4. Hypertension. 5. Metabolic encephalopathy. 6. Catheter-associated urinary tract infection and sepsis. HOSPITAL COURSE: He had a fever, elevated white count, and lactic acidosis. He had a catheter- associated infection, seen by Dr. Etienne. A new Alba was placed, and it should be changed at least every 30 days. He was found to have Enterococcus, covered with Unasyn, and we switched to oral antibiotics on discharge. to ampicillin, daptomycin, Macrobid, penicillin, , streptomycin, and vancomycin. It was resistant to Cipro and Levaquin, so we will get him home on Augmentin 875 b.i.d. for a week. Follow up in the halfway. Continue current medications. MEDICATIONS: Include: 1. Augmentin 875 one b.i.d. for 7 days. 2. Melatonin 3 mg at night. 3. Metformin 500 b.i.d. 4. Aspirin 81 mg daily. 5. Humalog 10 units a.c. t.i.d. 6. Imodium 2 to 4 mg t.i.d. p.r.n. 7. Zestril 10 mg daily. 8. Mirtazapine 7.5 daily. 9. Multivitamin daily. 10.Plavix 75 daily. 11.Risperdal 1.5 at night. 12.Lipitor 40 mg at night. 13.Tylenol for pain q.8 hours. 14. Lantus Solostar 30 units subcutaneously at night. 15.Humalog Kwikpen 10 units a.c. and at bedtime per protocol. CONDITION: Stable. PROGNOSIS: Guarded. DISCHARGE INSTRUCTIONS: Follow up as an outpatient in halfway. The patient is stable for discharge, cleared by Dr. Etienne for discharge. Diet will be; he will need a nursing attendant to help feed him as he is not eating good by himself. Continue to monitor signs of dementia and altered mental status secondary to UTI. Repeat and urine culture possibly in 10 days. MMODL / IJN: [id number] /
--- NOTE | 2021-12-31 00:11 | PN ---
PROGRESS NOTE OBJECTIVE: VITAL SIGNS: His blood pressure has been around high 160s to 170s over 60s to 70s, O2 is 95 to 97, temperature 97 to 98, pulse 60 to 66, respiratory rate 12 to 16. CARDIOVASCULAR: S1, S2. LUNGS: Scattered rhonchi. HEMATOLOGY: Negative Homans. GI: Soft. INTEGUMENT: No rash, excoriations, or bruises. ASSESSMENT: dementia, urinary tract infection with sepsis, metabolic encephalopathy. Weaned off pain medicines. Given Neurontin 100 mg daily. Continue with antibiotics for urinary tract infection antibiotics as an outpatient. Prognosis guarded. MMODL / IJN: [id number] /
--- NOTE | 2022-01-08 13:12 | PN ---
PROGRESS NOTE Coccyx pressure ulcer, stage II. MMODL / IJN: [id number] /
== END 2021-12-30 16:06 | DRG 698 ==
LOC: EC 18:02 → 4SSUR 21:54
PROVIDERS: ADMIT Family Medicine; ATTEND Family Medicine
DX: T83.518A Infection and inflammatory reaction due to other urinary catheter, initial encounter (principal); A41.81 Sepsis due to Enterococcus; G93.41 Metabolic encephalopathy; R65.20 Severe sepsis without septic shock; E87.2 Acidosis; I69.351 Hemiplegia and hemiparesis following cerebral infarction affecting right dominant side; Z16.23 Resistance to quinolones and fluoroquinolones; N30.90 Cystitis, unspecified without hematuria; E11.40 Type 2 diabetes mellitus with diabetic neuropathy, unspecified; Z20.822 Contact with and (suspected) exposure to COVID-19; E78.5 Hyperlipidemia, unspecified; G30.1 Alzheimer's disease with late onset; F01.50 Vascular dementia, unspecified severity, without behavioral disturbance, psychotic disturbance, mood disturbance, and anxiety; F02.80 Dementia in other diseases classified elsewhere, unspecified severity, without behavioral disturbance, psychotic disturbance, mood disturbance, and anxiety; F32.9 Major depressive disorder, single episode, unspecified; R32 Unspecified urinary incontinence; D64.9 Anemia, unspecified; G47.00 Insomnia, unspecified; Z83.3 Family history of diabetes mellitus; I10 Essential (primary) hypertension; L89.152 Pressure ulcer of sacral region, stage 2; F41.9 Anxiety disorder, unspecified; I69.320 Aphasia following cerebral infarction; N40.0 Benign prostatic hyperplasia without lower urinary tract symptoms; R29.6 Repeated falls; Y84.6 Urinary catheterization as the cause of abnormal reaction of the patient, or of later complication, without mention of misadventure at the time of the procedure; Z79.02 Long term (current) use of antithrombotics/antiplatelets; Z79.4 Long term (current) use of insulin; Z79.82 Long term (current) use of aspirin; Z79.84 Long term (current) use of oral hypoglycemic drugs; Z79.899 Other long term (current) drug therapy; Z91.81 History of falling; Z87.440 Personal history of urinary (tract) infections; Z91.040 Latex allergy status
CPT/HCPCS: 36415; 71045; 80053; 81001; 82565; 83036; 83605; 84145; 85025; 87040; 87077; 87086; 87186; 87636; 93005; 96361; 96365; 96366; 96367; 96375; 99291